=== PATIENT | female | born 1980 | race Caucasian/White ===

== ENCOUNTER 2019-12-12 12:34 | Emergency (ER) | payer MEDICAID, SELFPAY ==
--- NOTE | 2019-12-12 | XR_ITS ---
EXAMINATION: XR CHEST CLINICAL INFORMATION: Shortness of breath. COMPARISON: Chest 09/25/2019. TECHNIQUE: Frontal view of the chest was obtained. FINDINGS: No significant abnormality is noted involving the heart, lungs, mediastinum, bony thorax or soft tissues. IMPRESSION: Unremarkable examination.
[2019-12-12 12:54] VITALS: BP 145/67; PULSE 110; RESP 20; TEMP 36.5; O2SAT 95; BMI 36.5
--- NOTE | 2019-12-12 13:03 | ED.ASTHMA ---
HPI - Asthma General Chief Complaint: Asthma Stated Complaint: asthma Time Seen by Provider: 12/12/19 13:01 Related Data Previous Rx's Medication Instructions Recorded albuterol sulfate 1 inh INHALATION QID PRN #18 g 12/12/19 prednisone 20 mg PO BID #10 tab 12/12/19 Allergies Allergy/AdvReac Type Severity Reaction Status Date / Time ibuprofen [From MOTRIN] Allergy Unknown SWELLING Unverified 11/25/19 17:10 tramadol [TRAMADOL] Allergy Unknown SWELLING Unverified 11/25/19 17:10 Review of Systems Review of Systems: Yes all other systems are reviewed and are negative Constitutional: Constitutional: Reports no additional constitutional complaints Eyes: Eyes: Reports no additional eye complaints ENT: Reports system reviewed and no additional complaints, except as documented Cardiovascular: Cardiovascular: Reports no additional cardiovascular complaints Gastrointestinal: Gastrointestinal: Reports no additional gastrointestinal complaints Musculoskeletal: Musculoskeletal: Reports no additional musculoskeletal complaints Neurologic: Reports system reviewed and no additional complaints, except as documented Psychiatric: Psychiatric: Reports no additional psychiatric complaints Allergic/Immunologic: Allergic/Immunologic: Reports no additional allergic/immunologic complaints [facility] Past Medical History Medical History Asthma delivery delivered COPD (chronic obstructive pulmonary disease) Social History Social History Alcohol intake: never Smoked in Last 30 Days: No Use of substances other than those prescribed or required for medical reasons: No Advance Directives: No Advance Directives Information Provided: No Physical Exam Vital Signs and I&O and Narrative: Vital Signs and I&O: Vital Signs Temp 97.7 F 12/12/19 12:54 Pulse 110 H 12/12/19 12:54 Resp 20 12/12/19 12:54 BP 145/67 H 12/12/19 12:54 Pulse Ox 95 12/12/19 12:54 Intake & Output 12/11/19 12/12/19 12/12/19 18:59 06:59 18:59 Weight 108.862 kg Body Mass Index 36.5 Const: General: cooperative, healthy appearing and comfortable Orientation/consciousness: oriented to person, oriented to place and oriented to time HENMT: Head: Yes normal to inspection Eyes: General: appearance normal, both eyes and all related structures Neck: Neck: Yes normal visual inspection and Yes no JVD Chest: Chest palpation & inspection: normal inspection of the chest Resp: Effort & Inspection: able to speak in complete sentences Auscultation: abnormal I/E ratio ( slightly prolonged expiratory effort with mild expiratory wheezing.) Cardio: Jugular venous distension: no JVD Rate: tachycardic GI: Inspection: Yes normal to inspection and Yes abdominal wall ecchymosis Neuro: General: oriented to person, oriented to place and oriented to time Cranial nerves: Yes CN's II-XII intact bilaterally Cognition (Neuro): normal cognition Motor exam (neuro): 5/5 motor strength present throughout and Pronator motor function not present Course Course Hospital Course: 39-year-old female with history of asthma, former smoker, presented with full days of wheezing and asthma exacerbation, patient was given albuterol in the emergency room and the prednisone patient feels better. As discussed with the patient we will discharge the patient on prednisone/albuterol. No need for antibiotic patient has a clear x-ray. MDM - Asthma MDM Narrative Medical decision making narrative: 39-year-old female presented with dyspnea, patient has no risk factor for DVT (no recent travel, no recent prolonged immobilization, no lower extremity swelling or pain, no history of PE or DVT). Exam is diagnostic for wheezing and asthma exacerbation. Patient is feels better after was given albuterol and prednisone. Differential Diagnosis Differential diagnosis: Likely Acute exacerbation Medical Records Attestation: I reviewed the patient's medical records. Imaging Data Chest x-ray: Radiologist's impression: No significant abnormality is noted involving the heart, lungs, mediastinum, bony thorax or soft tissues. Discharge Plan Discharge Clinical Impression: Asthma with acute exacerbation Patient Disposition: Home, Self-Care Instructions: How to Use a Nebulizer (ED), Bronchospasm (ED) Prescriptions: New albuterol sulfate 90 mcg/actuation HFA aerosol inhaler 1 inh inhalation QID PRN (Reason: shortness of breath or wheezing) Qty: 18 RF: 0 prednisone 20 mg tablet 20 mg PO BID Qty: 10 RF: 0
[2019-12-12] MEDS: Albuterol/Iprat 2.5/0.5MG 3 ML AMPUL.NEB INHALE (13:14)
[2019-12-12] MEDS: predniSONE 20 MG TABLET 60 MG PO (13:36)
== END 2019-12-12 15:36 | disposition home or self-care (01) ==
PROVIDERS: Emergency Provider Emergency Medicine; PCP Family Medicine
DX: J45.901 Unspecified asthma with (acute) exacerbation (principal); Z79.899 Other long term (current) drug therapy
CPT/HCPCS: 71045; 99284

== ENCOUNTER 2019-12-28 21:43 | Emergency (ER) | payer MEDICAID, SELFPAY ==
[2019-12-28 21:48] VITALS: BP 150/71; PULSE 120; RESP 22; TEMP 37.4; O2SAT 93; BMI 36.5
--- NOTE | 2019-12-28 23:51 | ED.ASTHMA ---
HPI - Asthma General Chief Complaint: Dyspnea Stated Complaint: ASTHMA Time Seen by Provider: 12/28/19 23:45 Source: patient Mode of arrival: ambulatory Limitations: no limitations History of Present Illness HPI Narrative: This is a 39-year-old female with history of asthma and states that she ran out of medication and over the past couple of days has developed worsening shortness of breath with wheezing. However, she denies any fever, chills, sore throat, cough, recent travel, GI symptoms, or symptoms. Related Data Previous Rx's Medication Instructions Recorded albuterol sulfate 1 inh INHALATION QID PRN #18 g 12/12/19 prednisone 20 mg PO BID #10 tab 12/12/19 albuterol sulfate [Ventolin HFA] 2 puff INHALATION Q6H PRN #1 ea 12/29/19 prednisone 50 mg PO DAILY 4 Days #4 tab 12/29/19 Allergies Allergy/AdvReac Type Severity Reaction Status Date / Time ibuprofen [From MOTRIN] Allergy Unknown SWELLING Verified 12/28/19 21:47 tramadol [TRAMADOL] Allergy Unknown SWELLING Verified 12/29/19 00:20 Review of Systems Review of Systems: Pertinent positives and negatives as stated in HPI 10 point review of systems is Otherwise negative PMFSH Past Medical History Source: nursing notes reviewed Medical History Asthma delivery delivered COPD (chronic obstructive pulmonary disease) Social History Social History Alcohol intake: never Smoking Status: Never smoker Use of substances other than those prescribed or required for medical reasons: No Advance Directives: No Advance Directives Information Provided: No Physical Exam Vital Signs: Vital Signs: Vital Signs Temp Pulse Resp BP Pulse Ox 12/29/19 01:25 101 H 22 H 109/64 95 12/29/19 00:00 103 H 18 120/89 94 12/28/19 21:48 99.4 F 120 H 22 H 150/71 H 93 Body Mass Index 36.5 VITAL SIGNS: Reviewed. GENERAL: Well developed, well nourished, in no acute distress. HEAD: Normocephalic/atraumatic, EYES: PERRLA, EOMI intact without pain, no nystagmus/pallor/icterus noted EARS: Ext canals without abnormality, TMs non-bulging and non-erythematous NOSE: Nares patent bilateral OROPHARYNX: no oral lesions noted, posterior pharynx clear and non-erythematous without noted tonsillar enlargement/erythema/exudates NECK: Supple, no adenopathy LUNGS: diffuse expiratory wheezing bilaterally No adventitious sounds or accessory muscle use. SpO2<93> CARDIOVASCULAR: Regular rate and rhythm without noted murmurs, no JVD or lower extremity edema. ABDOMEN: Soft, non-tender, non-distended with bowel sounds. No rigidity. No guarding. No palpable masses or hernias noted MUSCULOSKELETAL: No tenderness, deformities, or effusions noted on gross inspection. EXTREMITIES: No cyanosis, clubbing or edema. SKIN: Inspection of the skin reveals no rashes, ulcerations, jaundice, pallor, or petechiae. NEUROLOGIC: Alert and oriented x 4. Strength and sensation to light touch were grossly intact x 4. Course Course Course Narrative: This is a 39-year-old female with history and clinical presentation consistent with acute asthma exacerbation due to running out of medication. Patient was treated with nebulized treatment as well as steroids with good resolution and improvement symptoms subjectively and on clinical evaluation. On review of all investigations although there is a mild leukocytosis this is after patient received steroids and felt to be secondary to that when taken together with a chest x-ray that is otherwise negative for any acute findings. All results and findings were discussed with the patient at bedside and she was strongly encouraged to follow-up with her primary care provider to get restarted on Advair or some other form of maintenance inhaled steroids. MDM - Asthma Lab Data Result diagrams: 12/29/19 00:48 12/29/19 00:48 Labs: Lab Results 12/29/19 12/29/19 12/29/19 Range/Units 00:48 00:48 00:48 WBC 11.8 H (4.8-10.8) X10*3/uL RBC 3.87 L (4.20-5.50) X10*6/uL Hgb 11.1 L (12.0-16.0) g/dl Hct 34.6 L (37-47) % MCV 89.4 (80-98) fL MCH 28.7 (27.0-33.0) pg MCHC 32.1 (31.0-35.0) g/dl RDW 13.4 (11.0-16.0) % Plt Count 216 (160-400) X10*3/uL MPV 11.3 (9.4-12.3) fL Immature Gran % (Auto) 0.3 (0.0-0.4) % Neut % (Auto) 72.5 (45-73) % Lymph % (Auto) 18.4 L (20-40) % [place] % (Auto) 5.7 (2-11) % Eos % (Auto) 2.8 (0-4) % Baso % (Auto) 0.3 (0-2) % Lymph # (Auto) 2.2 (1.2-4.9) X10*3/uL [place] # (Auto) 0.7 (0.1-1.2) X10*3/uL Eos # (Auto) 0.3 (0.0-0.4) X10*3/uL Baso # (Auto) 0.0 (0.0-0.2) X10*3/uL Abs Immat Gran (auto) 0.04 H (0.00-0.03) X10*3/uL Absolute Neuts (auto) 8.5 H (2.0-8.3) X10*3/uL Absolute Nucleated RBC 0.000 (0.0-0.012) X10*3/uL Nucleated RBC % (auto) 0.0 (0.0-0.2) /100WBC Sodium 140 (135-145) mmol/L Potassium 3.8 (3.3-5.1) mmol/l Chloride 104 (96-108) mmol/L Carbon Dioxide 26 (22-29) mmol/L Anion Gap 14 (12-20) BUN 13 (9-16) mg/dL Creatinine 0.77 (0.5-1.4) mg/dL Estim Creat Clear Calc 126.7 Estimated GFR > 60 Random Glucose 116 H (60-115) mg/dL Calcium 9.0 (8.4-10.2) mg/dL Magnesium 2.1 (1.6-2.6) mg/dL Discharge Plan Discharge Clinical Impression: Asthma with exacerbation Qualifiers: Asthma severity: mild Asthma persistence: unspecified Qualified Code(s): J45.901 - Unspecified asthma with (acute) exacerbation Patient Disposition: Home, Self-Care Instructions: Asthma (ED) Additional Instructions: 1. please contact your primary care provider to discuss getting restarted on maintenance steroid inhaler The patient and/or family acknowledge understanding of results (as applicable), diagnosis, treatment plan, need for follow up, and symptoms that should prompt a return to the emergency room. Prescriptions: New albuterol sulfate [Ventolin HFA] 90 mcg/actuation HFA aerosol inhaler 2 puff inhalation Q6H PRN (Reason: shortness of breath or wheezing) Qty: 1 RF: 0 prednisone 50 mg tablet 50 mg PO DAILY 4 Days Qty: 4 RF: 0 No Action albuterol sulfate 90 mcg/actuation HFA aerosol inhaler 1 inh inhalation QID PRN (Reason: shortness of breath or wheezing) Qty: 18 RF: 0 prednisone 20 mg tablet 20 mg PO BID Qty: 10 RF: 0 Referrals: Po,Sara Cifuentes MD [Primary Care Provider] - 2 days ( for further asthma management, may consider maintenance steroid inhaler)
[2019-12-29] VITALS: BP 120/89; PULSE 103; RESP 18; O2SAT 94
--- NOTE | 2019-12-29 00:10 | XR_ITS ---
EXAMINATION: CHEST 1 VIEW CLINICAL INFORMATION: Dyspnea. COMPARISON: 12/12/2019. TECHNIQUE: An AP view of the chest is provided. FINDINGS: The cardiac silhouette is not enlarged. The mediastinal and hilar contours are unremarkable. There are neither pleural effusions nor pneumothoraces. There are no consolidations. The osseous structures are stable. IMPRESSION: No evidence for acute disease.
[2019-12-29] MEDS: Albuterol Sulfate (0.083%) 2.5 MG/3 ML VIAL.NEB 10 MG INHALE (00:24)
[2019-12-29] MEDS: methylPREDNISolone Sod Succ/PF 125 MG/2 ML VIAL IVPUSH (00:47)
[2019-12-29 00:54] LABS: MANUAL DIFF FLAG NO
[2019-12-29 00:57] LABS: Basophils Percent Auto 0.3 % (0-2); Eosinophils Absolute Auto 0.3 X10*3/uL (0.0-0.4); Eosinophils Percent Auto 2.8 % (0-4); Hematocrit 34.6 % (37-47); Hemoglobin 11.1 g/dl (12.0-16.0); Imm Gran Abs Auto 0.04 X10*3/uL (0.00-0.03); Imm Gran Pct Auto 0.3 % (0.0-0.4); Lymphocytes Absolute Auto 2.2 X10*3/uL (1.2-4.9); Lymphocytes Percent Auto 18.4 % (20-40); Mean Corpuscular HGB Conc 32.1 g/dl (31.0-35.0); Mean Corpuscular Hemoglobin 28.7 pg (27.0-33.0); Mean Corpuscular Volume 89.4 fL (80-98); Mean Platelet Volume 11.3 fL (9.4-12.3); Monocytes Absolute Auto 0.7 X10*3/uL (0.1-1.2); Monocytes Percent Auto 5.7 % (2-11); Neutrophils Absolute Auto 8.5 X10*3/uL (2.0-8.3); Neutrophils Percent Auto 72.5 % (45-73); Platelet Count 216 X10*3/uL (160-400); Red Blood Count 3.87 X10*6/uL (4.20-5.50); Red Cell Distribution Width 13.4 % (11.0-16.0); White Blood Count 11.8 X10*3/uL (4.8-10.8)
[2019-12-29 01:18] LABS: Anion Gap 14 (12-20); Blood Urea Nitrogen 13 mg/dL (9-16); Carbon Dioxide 26 mmol/L (22-29); Chloride 104 mmol/L (96-108); Creatinine Clr Calc Pharmacy 126.7; Estimated Glomerular Filt Rate > 60; Glucose Random 116 mg/dL (60-115); Potassium 3.8 mmol/l (3.3-5.1); Sodium 140 mmol/L (135-145)
[2019-12-29 01:19] LABS: Magnesium 2.1 mg/dL (1.6-2.6)
[2019-12-29 01:25] VITALS: BP 109/64; PULSE 101; RESP 22; O2SAT 95
[2019-12-29 02:29] VITALS: BP 123/60; PULSE 100; RESP 19; TEMP 36.8; O2SAT 96
== END 2019-12-29 02:36 | disposition home or self-care (01) ==
PROVIDERS: Emergency Provider Student in an Organized Health Care Education/Training Program; PCP Internal Medicine
DX: J45.901 Unspecified asthma with (acute) exacerbation (principal)
CPT/HCPCS: 36415; 71045; 80048; 83735; 85025; 96374; 99284; J2930

== ENCOUNTER 2020-01-30 13:26 | Emergency (ER) | payer MEDICAID, SELFPAY ==
[2020-01-30 14:14] VITALS: BP 130/75; PULSE 111; RESP 22; TEMP 35.8; O2SAT 95; BMI 36.5
--- NOTE | 2020-01-30 14:26 | ED_ITS ---
HPI - Asthma General Chief Complaint: Asthma Stated Complaint: sob,cough Time Seen by Provider: 01/30/20 14:20 Source: patient Mode of arrival: ambulatory Limitations: no limitations History of Present Illness HPI Narrative: 39-year-old female with a past medical history of asthma here with cough and wheezing since yesterday. The patient tells me she was seen here 1 month ago for asthma exacerbation she was given a 5 day course of prednisone. She completed this. She has been intermittently compliant with Advair. Using ProAir every day. no fevers, chills, body aches MD complaint: shortness of breath Onset (ago): day(s) Severity: mild Context: none known Associated symptoms: none Asthma History: childhood onset Treatments Prior to Arrival: inhaled bronchodilator Related Data Previous Rx's Medication Instructions Recorded albuterol sulfate 1 inh INHALATION QID PRN #18 g 12/12/19 prednisone 20 mg PO BID #10 tab 12/12/19 albuterol sulfate [Ventolin HFA] 2 puff INHALATION Q6H PRN #1 ea 12/29/19 prednisone 50 mg PO DAILY 4 Days #4 tab 12/29/19 prednisone 60 mg PO DAILY #15 tab 01/30/20 Allergies Allergy/AdvReac Type Severity Reaction Status Date / Time ibuprofen [From MOTRIN] Allergy Unknown SWELLING Verified 01/30/20 14:16 tramadol [TRAMADOL] Allergy Unknown SWELLING Verified 01/30/20 14:16 Review of Systems Review of Systems: Yes all other systems are reviewed and are negative Constitutional: Constitutional: Reports no additional constitutional complaints, Denies body ache(s), Denies chills, Denies fever(s), Denies headache(s) and Denies weakness Eyes: Eyes: Reports no additional eye complaints and Denies change in vision ENT: Reports system reviewed and no additional complaints, except as documented, Denies dizziness, Denies headache(s), Denies nasal congestion, Denies nasal discharge and Denies neck pain Cardiovascular: Cardiovascular: Reports no additional cardiovascular complaints, Denies chest pain, Denies leg edema and Denies dyspnea Respiratory: Respiratory: Reports no additional respiratory complaints, Reports cough and Denies dyspnea Gastrointestinal: Gastrointestinal: Reports no additional gastrointestinal complaints, Denies abdominal pain, Denies diarrhea, Denies nausea and Denies vomiting Genitourinary: Genitourinary: Reports no additional female genitourinary complaints and Denies urinary incontinence Musculoskeletal: Musculoskeletal: Reports no additional musculoskeletal compla ints, Denies back pain, Denies arthralgias, Denies joint swelling, Denies neck pain, Denies numbness and Denies tingling Integumentary/Breasts: Skin/Breast: Reports system reviewed and no additional complaints, except as docu and Denies rash Neurologic: Reports system reviewed and no additional complaints, except as documented, Denies Abnormal speech present, Denies dizziness, Denies headache(s), Denies numbness, Denies tingling and Denies weakness PENDING SALE TO [facility] Past Medical History Attestation statement: The following information was validated with the patient. Source: old records reviewed and nursing notes reviewed Medical History Asthma delivery delivered COPD (chronic obstructive pulmonary disease) Social History Social History Alcohol intake: never Smoking Status: Never smoker Smoked in Last 30 Days: No Use of substances other than those prescribed or required for medical reasons: No Advance Directives: No Advance Directives Information Provided: Yes Physical Exam Vital Signs: Vital Signs: Last Vital Signs Temp 98.4 F 01/30/20 16:59 Pulse 102 H 01/30/20 16:59 Resp 15 01/30/20 16:59 BP 121/76 01/30/20 16:59 Pulse Ox 100 01/30/20 16:59 Body Mass Index 36.5 Const: General: cooperative, healthy appearing, comfortable and no acute distress Orientation/consciousness: patient oriented x3 Limitations: no limitations HENMT: Head: Yes normal to inspection Ears: hearing grossly normal bilaterally General nose exam: Normal external nose present Face and sinus: Yes normal facial exam Mouth: Normal oral and palatal mucosa present Throat: Yes posterior oropharynx normal Eyes: General: appearance normal, both eyes and all related structures Pupils: Equal, round and reactive pupils present Neck: Neck: Yes normal visual inspection Chest: Chest palpation & inspection: normal inspection of the chest Resp: Effort & Inspection: normal respiratory effort Auscultation: wheezes expiratory wheezes and inspiratory wheezes Cardio: Rate: regular rate Rhythm: regular rhythm Peripheral pulses: Peripheral pulses 2+ throughout GI: Inspection: Yes normal to inspection Palpation (GI): Soft to palpation and nontender Auscultation: normal bowel sounds Back/Spine/Pelvis: Thoracic/Lumbar Spine: thoracic and lumbar spine normal to inspection Skin: General skin exam: no rashes or lesions noted Neuro: General: patient oriented x3, no focal motor deficits and normal sensation to monofilament Cranial nerves: Yes Equal, round and reactive pupils present Cognition (Neuro): normal cognition Speech: No Abnormal speech present Gait exam (Neuro): Normal gait present Motor exam (neuro): 5/5 motor strength present throughout Extrem: General: Yes normal to inspection Course Course Course Narrative: 39-year-old female with a past medical history of asthma here with cough and wheezing since yesterday. On arrival has inspiratory and expiratory wheezing throughout. She has stable saturations and is mildly tachycardic but used several rounds of albuterol home before coming in. Will check labs, chest x-ray to rule out underlying infection. Will give bronchodi lator, Solu-Medrol and magnesium and reassess. 1700- Chest x-ray negative. Labs unremarkable with exception of mild leukocytosis which is unchanged from previous and likely from steroid use. Heart rate and oxygen saturation a much improved. Patient is feeling better. Will plan for ambulatory O2 sat would likely discharge home. Sign out to Rohan MONZON pending above. MDM - Asthma MDM Narrative Medical decision making narrative: viral syndrome, asthma exacerbation, pneumonia Medical Records Attestation: I reviewed the patient's medical records. Lab Data Attestation: I reviewed the patient's lab results. Result diagrams: 01/30/20 14:41 01/30/20 14:41 Labs: Lab Results 01/30/20 01/30/20 01/30/20 Range/Units 14:41 14:41 14:41 WBC 12.1 H (4.8-10.8) X10*3/uL RBC 4.08 L (4.20-5.50) X10*6/uL Hgb 11.9 L (12.0-16.0) g/dl Hct 36.4 L (37-47) % MCV 89.2 (80-98) fL MCH 29.2 (27.0-33.0) pg MCHC 32.7 (31.0-35.0) g/dl RDW 14.0 (11.0-16.0) % Plt Count 203 (160-400) X10*3/uL MPV 10.6 (9.4-12.3) fL Immature Gran % (Auto) 0.5 H (0.0-0.4) % Neut % (Auto) 76.6 H (45-73) % Lymph % (Auto) 17.1 L (20-40) % [place] % (Auto) 3.9 (2-11) % Eos % (Auto) 1.7 (0-4) % Baso % (Auto) 0.2 (0-2) % Lymph # (Auto) 2.1 (1.2-4.9) X10*3/uL [place] # (Auto) 0.5 (0.1-1.2) X10*3/uL Eos # (Auto) 0.2 (0.0-0.4) X10*3/uL Baso # (Auto) 0.0 (0.0-0.2) X10*3/uL Abs Immat Gran (auto) 0.06 H (0.00-0.03) X10*3/uL Absolute Neuts (auto) 9.3 H (2.0-8.3) X10*3/uL Absolute Nucleated RBC 0.000 (0.0-0.012) X10*3/uL Nucleated RBC % (auto) 0.0 (0.0-0.2) /100WBC Hold Blue Top SEE NOTE Sodium 138 (135-145) mmol/L Potassium 3.7 (3.3-5.1) mmol/l Chloride 101 (96-108) mmol/L Carbon Dioxide 26 (22-29) mmol/L Anion Gap 15 (12-20) BUN 11 (9-16) mg/dL Creatinine 0.68 (0.5-1.4) mg/dL Estim Creat Clear Calc 143.6 Estimated GFR > 60 Random Glucose 105 (60-115) mg/dL Calcium 8.5 (8.4-10.2) mg/dL Imaging Data Chest x-ray: Attestation: I personally reviewed and interpreted this imaging study as follows: Radiologist's impression: EXAMINATION: XR CHEST CLINICAL INFORMATION: Shortness of breath. COMPARISON: Chest radiograph dated 12/29/2019. TECHNIQUE: 2 views of the chest were obtained. FINDINGS: The lungs are clear. The cardiomediastinal silhouette is normal in size. There is no pleural effusion or pneumothorax. No acute osseous abnormality. XR/XR chest 2V IMPRESSION: No acute cardiopulmonary findings. Discharge Plan Discharge Clinical Impression: Asthma with acute exacerbation Patient Disposition: Home, Self-Care Instructions: Asthma (ED) Additional Instructions: Start prednisone tomorrow Use her albuterol as needed for cough or wheezing Increase fluids, rest Follow-up with her primary care doctor. Prescriptions: New prednisone 20 mg tablet 60 mg PO DAILY Qty: 15 RF: 0 No Action albuterol sulfate 90 mcg/actuation HFA aerosol inhaler 1 inh inhalation QID PRN (Reason: shortness of breath or wheezing) Qty: 18 RF: 0 prednisone 20 mg tablet 20 mg PO BID Qty: 10 RF: 0 albuterol sulfate [Ventolin HFA] 90 mcg/actuation HFA aerosol inhaler 2 puff inhalation Q6H PRN (Reason: shortness of breath or wheezing) Qty: 1 RF: 0 prednisone 50 mg tablet 50 mg PO DAILY 4 Days Qty: 4 RF: 0 Referrals: Physician,Unknown [Primary Care Provider] - 2 days
[2020-01-30 14:33] VITALS: PULSE 113; O2SAT 94
[2020-01-30] MEDS: Albuterol Sulfate (0.083%) 2.5 MG/3 ML VIAL.NEB 10 MG INHALE (14:33)
[2020-01-30 14:49] LABS: Basophils Percent Auto 0.2 % (0-2); Eosinophils Absolute Auto 0.2 X10*3/uL (0.0-0.4); Eosinophils Percent Auto 1.7 % (0-4); Hematocrit 36.4 % (37-47); Hemoglobin 11.9 g/dl (12.0-16.0); Imm Gran Abs Auto 0.06 X10*3/uL (0.00-0.03); Imm Gran Pct Auto 0.5 % (0.0-0.4); Lymphocytes Absolute Auto 2.1 X10*3/uL (1.2-4.9); Lymphocytes Percent Auto 17.1 % (20-40); MANUAL DIFF FLAG NO; Mean Corpuscular HGB Conc 32.7 g/dl (31.0-35.0); Mean Corpuscular Hemoglobin 29.2 pg (27.0-33.0); Mean Corpuscular Volume 89.2 fL (80-98); Mean Platelet Volume 10.6 fL (9.4-12.3); Monocytes Absolute Auto 0.5 X10*3/uL (0.1-1.2); Monocytes Percent Auto 3.9 % (2-11); Neutrophils Absolute Auto 9.3 X10*3/uL (2.0-8.3); Neutrophils Percent Auto 76.6 % (45-73); Platelet Count 203 X10*3/uL (160-400); Red Blood Count 4.08 X10*6/uL (4.20-5.50); White Blood Count 12.1 X10*3/uL (4.8-10.8)
[2020-01-30 15:32] LABS: Anion Gap 15 (12-20); Blood Urea Nitrogen 11 mg/dL (9-16); Calcium 8.5 mg/dL (8.4-10.2); Carbon Dioxide 26 mmol/L (22-29); Chloride 101 mmol/L (96-108); Creatinine Clr Calc Pharmacy 143.6; Estimated Glomerular Filt Rate > 60; Glucose Random 105 mg/dL (60-115); Potassium 3.7 mmol/l (3.3-5.1); Sodium 138 mmol/L (135-145)
[2020-01-30] MEDS: methylPREDNISolone Sod Succ/PF 125 MG/2 ML VIAL IVPUSH (16:25)
[2020-01-30] MEDS: 0.9 % Sodium Chloride 1,000 ML 999 ML IV (16:31)
[2020-01-30 16:32] VITALS: BP 121/71; PULSE 106; RESP 20; TEMP 36.8; O2SAT 100
[2020-01-30] MEDS: Magnesium Sulfate/H2O 2 GM/50 ML PIGGYBACK IV (16:32)
[2020-01-30 16:59] VITALS: BP 121/76; PULSE 102; RESP 15; TEMP 36.9; O2SAT 100
[2020-01-30] MEDS: Albuterol Sulfate 90 MCG 8 GM INHALER 2 PUFF INHALE (17:46)
[2020-01-30 17:48] VITALS: PULSE 103; O2SAT 99
[2020-01-30 19:52] VITALS: BP 139/74; PULSE 102; RESP 16; TEMP 36.9; O2SAT 99
== END 2020-01-30 19:58 | disposition home or self-care (01) ==
PROVIDERS: Nurse Practitioner Family; Emergency Provider Emergency Medicine
DX: J45.901 Unspecified asthma with (acute) exacerbation (principal); R06.02 Shortness of breath; R05 Cough; Z79.899 Other long term (current) drug therapy
CPT/HCPCS: 36415; 71046; 80048; 85025; 94640; 94644; 94645; 96365; 96366; 96375; 99284; J2930; J3475

== ENCOUNTER 2020-04-01 15:15 | Emergency (ER) | payer MEDICAID, SELFPAY ==
[2020-04-01 15:38] VITALS: BP 142/87; PULSE 113; RESP 18; TEMP 36.6; O2SAT 95; BMI 35.4
--- NOTE | 2020-04-01 16:34 | ED.ASTHMA ---
HPI - Asthma General Chief Complaint: Asthma Stated Complaint: asthma Time Seen by Provider: 04/01/20 16:20 Source: patient Mode of arrival: ambulatory Limitations: no limitations History of Present Illness HPI Narrative: 39-year-old female who presents emergency department for evaluation of asthma exacerbation. Patient states that she had an asthma flare up this morning, she states that she does not know what triggered her asthma but she often gets flare ups. She states that her last flare-up was 1 month prior and she was seen here in the emergency department and treated with nebulizers and steroids. The patient states that she did use her albuterol nebulizer, ProAir inhaler and Advair today with no relief for symptoms. She currently is complaining of shortness of breath and dyspnea on exertion. She has tightness in the center of her chest which is worse with breathing, is intermittent and is 8/10 at its worst. She denied fever, chills. She states she has a cough which is nonproductive in the started this morning as well. She denied myalgias, arthralgias, loss of sense of taste or smell, diarrhea. She is not aware of any primary COVID-19 exposures. Related Data Previous Rx's Medication Instructions Recorded albuterol sulfate 1 inh INHALATION QID PRN #18 g 12/12/19 prednisone 20 mg PO BID #10 tab 12/12/19 albuterol sulfate [Ventolin HFA] 2 puff INHALATION Q6H PRN #1 ea 12/29/19 prednisone 50 mg PO DAILY 4 Days #4 tab 12/29/19 prednisone 60 mg PO DAILY #15 tab 01/30/20 albuterol sulfate 2.5 mg INHALATION Q4H PRN #90 ml 04/01/20 albuterol sulfate [ProAir HFA] 2 puff INHALATION Q4-6H PRN #8.5 g 04/01/20 fluticasone propion-salmeterol 1 inh INHALATION Q12H #60 ea 04/01/20 [Advair Diskus] prednisone 60 mg PO DAILY 5 Days #15 tab 04/01/20 Allergies Allergy/AdvReac Type Severity Reaction Status Date / Time ibuprofen [From MOTRIN] Allergy Unknown SWELLING Verified 04/01/20 15:38 tramadol [TRAMADOL] Allergy Unknown SWELLING Verified 04/01/20 15:38 Review of Systems Review of Systems: Yes all other systems are reviewed and are negative Neurologic: Reports Abnormal speech present [facility] Past Medical History [facility] Narrative: The patient denies tobacco and alcohol use. She denies drug use as well. Medical History Asthma delivery delivered COPD (chronic obstructive pulmonary disease) Social History Social History Alcohol intake: never Smoking Status: Never smoker Smoked in Last 30 Days: No Use of substances other than those prescribed or required for medical reasons: No Advance Directives: No Advance Directives Information Provided: Yes Physical Exam Vital Signs: Vital Signs: Last Vital Signs Temp 97.8 F 04/01/20 15:38 Pulse 103 H 04/01/20 17:02 Resp 16 04/01/20 17:01 BP 119/70 04/01/20 17:01 Pulse Ox 99 04/01/20 17:01 Body Mass Index 35.4 Const: General: cooperative and healthy appearing Orientation/consciousness: oriented to person and oriented to place Limitations: no limitations HENMT: Head: Yes normal to inspection, Yes normocephalic and Yes atraumatic Ears: external ears normal General nose exam: Normal external nose present Face and sinus: Yes normal facial exam Mouth: Normal oral and palatal mucosa present Throat: Yes posterior oropharynx normal Eyes: Periorbital: periorbital findings normal Eyelids: Yes eyelids normal Conjunctivae: conjunctivae normal Sclerae: sclerae normal Corneas: corneas normal Pupils: Equal, round and reactive pupils present Direct Ophthalmoscopy: normal light reflex Neck: Neck: Yes full ROM, Yes no lymphadenopathy, Yes no meningeal signs, Yes trachea midline and Yes supple Chest: Chest palpation & inspection: normal inspection of the chest and normal palpation of entire chest wall Resp: Effort & Inspection: normal respiratory effort and able to speak in complete sentences Auscultation: no crackles, no rales, no rhonchi and wheezes scattered wheezes and throughout Cardio: Rate: tachycardic Rhythm: regular rhythm Heart sounds: S1 normal heart sound present, S2 normal heart sound present and no murmurs GI: Inspection: Yes normal to inspection Palpation (GI): Soft to palpation, nontender, no guarding, not rigid and No hepatosplenomegaly present : General: Yes no CVA tenderness Back/Spine/Pelvis: Back: no CVA tenderness Cervical Spine: normal cervical lordosis Thoracic/Lumbar Spine: thoracic and lumbar spine normal to inspection Skin: Lesions: no lesions Rashes: no rashes Wounds: no wounds Neuro: General: oriented to person, oriented to place and no meningeal signs Cranial nerves: Yes Equal, round and reactive pupils present Cognition (Neuro): normal cognition Speech: Abnormal speech present Motor exam (neuro): 5/5 motor strength present throughout Extrem: General: Yes normal to inspection and Yes full ROM Psych: Appearance: well kempt Mental Status: mental status grossly normal Speech and movement: Normal speech and movement present Affect: normal affect Attitude: cooperative Thought process: Normal thought process present Thought content: Normal thought content present Course Course Course Narrative: 39-year-old female who presents emergency department for evaluation asthma exacerbation since this morning. She has used her usual medications at home with no relief of her symptoms. On physical examination she has diffuse wheezing. The patient was ordered to get an hour long albuterol nebulizer 10 mg and prednisone 60 mg orally. 1804: The patient's lung exam improved after the above treatment, the patient is feeling significantly better. The patient will be discharged home. She was given a prescription for ProAir, Advair, albuterol nebulizer solution and prednisone 60 mg once a day for 5 days. She is advised to follow-up with her PCP within 2 days and return if her symptoms get worse or she develops any new symptoms that are concerning to her. Discharge Plan Discharge Clinical Impression: Asthma with acute exacerbation Qualifiers: Asthma severity: moderate Asthma persistence: unspecified Qualified Code(s): J45.901 - Unspecified asthma with (acute) exacerbation Patient Disposition: Home, Self-Care Instructions: Asthma (ED) Additional Instructions: Use your albuterol inhaler, Advair, albuterol nebulizer solution and prednisone as prescribed. Follow-up with your doctor in 2 days. Please return to the emergency department if your symptoms get worse or if you develop any symptoms that are concerning to you. Prescriptions: New prednisone 20 mg tablet 60 mg PO DAILY 5 Days Qty: 15 RF: 0 albuterol sulfate [ProAir HFA] 90 mcg/actuation HFA aerosol inhaler 2 puff inhalation Q4-6H PRN (Reason: shortness of breath or wheezing) Qty: 8.5 RF: 0 fluticasone propion-salmeterol [Advair Diskus] 250-50 mcg/dose blister with device 1 inh inhalation Q12H Qty: 60 RF: 0 albuterol sulfate 2.5 mg /3 mL (0.083 %) solution for nebulization 2.5 mg inhalation Q4H PRN (Reason: shortness of breath or wheezing) Qty: 90 RF: 0 No Action prednisone 20 mg tablet 60 mg PO DAILY Qty: 15 RF: 0 albuterol sulfate 90 mcg/actuation HFA aerosol inhaler 1 inh inhalation QID PRN (Reason: shortness of breath or wheezing) Qty: 18 RF: 0 prednisone 20 mg tablet 20 mg PO BID Qty: 10 RF: 0 albuterol sulfate [Ventolin HFA] 90 mcg/actuation HFA aerosol inhaler 2 puff inhalation Q6H PRN (Reason: shortness of breath or wheezing) Qty: 1 RF: 0 prednisone 50 mg tablet 50 mg PO DAILY 4 Days Qty: 4 RF: 0
[2020-04-01] MEDS: Albuterol Sulfate (0.083%) 2.5 MG/3 ML VIAL.NEB 10 MG INHALE (16:57)
[2020-04-01] MEDS: predniSONE 20 MG TABLET 60 MG PO (16:59)
[2020-04-01 17:01] VITALS: BP 119/70; PULSE 99; RESP 16; O2SAT 99
[2020-04-01 17:02] VITALS: PULSE 103; O2SAT 98
== END 2020-04-01 18:28 | disposition home or self-care (01) ==
PROVIDERS: Emergency Provider Emergency Medicine Emergency Medical Services; PCP Family Medicine
DX: J45.901 Unspecified asthma with (acute) exacerbation (principal); Z79.899 Other long term (current) drug therapy
CPT/HCPCS: 94640; 94644; 99284

== ENCOUNTER 2020-04-12 08:38 | Emergency (ER) | payer MEDICAID, SELFPAY ==
--- NOTE | 2020-04-12 09:30 | ED.SOB ---
HPI - SOB/Dyspnea General Chief Complaint: Asthma Stated Complaint: asthma Time Seen by Provider: 04/12/20 09:30 Source: patient Mode of arrival: ambulatory Limitations: no limitations History of Present Illness HPI Narrative: shortness of breath started yesterday. Was on steroids over a month ago. Patient states she has no exposure to KRISTIN MD elicited complaint: shortness of breath Pertinent past history: asthma Onset (ago): week(s) Timing: intermittent Severity: mild Exacerbating factors: exertion Relieving factors: bronchodilators Known history of: asthma Associated symptoms: cough Related Data Previous Rx's Medication Instructions Recorded albuterol sulfate 1 inh INHALATION QID PRN #18 g 12/12/19 prednisone 20 mg PO BID #10 tab 12/12/19 albuterol sulfate [Ventolin HFA] 2 puff INHALATION Q6H PRN #1 ea 12/29/19 prednisone 50 mg PO DAILY 4 Days #4 tab 12/29/19 prednisone 60 mg PO DAILY #15 tab 01/30/20 albuterol sulfate 2.5 mg INHALATION Q4H PRN #90 ml 04/01/20 albuterol sulfate [ProAir HFA] 2 puff INHALATION Q4-6H PRN #8.5 g 04/01/20 fluticasone propion-salmeterol 1 inh INHALATION Q12H #60 ea 04/01/20 [Advair Diskus] prednisone 60 mg PO DAILY 5 Days #15 tab 04/01/20 [id number] 15 ml PO Q4H PRN #118 ml 04/12/20 [Robitussin Cough and Cold CF] prednisone 60 mg PO DAILY #15 tab 04/12/20 Allergies Allergy/AdvReac Type Severity Reaction Status Date / Time ibuprofen [From MOTRIN] Allergy Unknown SWELLING Verified 04/01/20 15:38 tramadol [TRAMADOL] Allergy Unknown SWELLING Verified 04/01/20 15:38 Review of Systems Constitutional: Constitutional: Reports no additional constitutional complaints Eyes: Eyes: Reports no additional eye complaints ENT: Denies dizziness Cardiovascular: Cardiovascular: Reports no additional cardiovascular complaints Respiratory: Respiratory: Reports as per HPI Gastrointestinal: Gastrointestinal: Reports no additional gastrointestinal complaints Genitourinary: Genitourinary: Reports no additional female genitourinary complaints Musculoskeletal: Musculoskeletal: Reports no additional musculoskeletal complaints Integumentary/Breasts: Skin/Breast: Denies rash Neurologic: Reports system reviewed and no additional complaints, except as documented, Denies dizziness and Denies Sensory deficit (Neuro) Psychiatric: Psychiatric: Denies anxiety PMFSH Past Medical History Medical History Asthma delivery delivered COPD (chronic obstructive pulmonary disease) Social History Social History Alcohol intake: never Smoking Status: Former smoker Smoked in Last 30 Days: No Use of substances other than those prescribed or required for medical reasons: No Advance Directives: No Advance Directives Information Provided: No Physical Exam Vital Signs: Vital Signs: Last Vital Signs Temp 98.4 F 04/12/20 10:00 Pulse 88 04/12/20 10:00 Resp 16 04/12/20 10:00 BP 139/88 04/12/20 10:00 Pulse Ox 95 04/12/20 10:00 Body Mass Index 36.5 Const: General: healthy appearing Nutritional Appearance: average body habitus Orientation/consciousness: oriented to person and patient oriented x3 Limitations: no limitations HENMT: Head: Yes normal to inspection Ears: external ears normal General nose exam: Normal external nose present Mouth: Normal oral and palatal mucosa present and oropharynx normal Throat: Yes posterior oropharynx normal Eyes: General: appearance normal, both eyes and all related structures Neck: Other: supple Neck: Yes normal visual inspection Chest: Chest palpation & inspection: normal inspection of the chest Resp: Other: diffuse wheezing Cardio: Jugular venous distension: no JVD Rate: regular rate Rhythm: regular rhythm Heart sounds: S1 normal heart sound present and S2 normal heart sound present GI: Inspection: Yes normal to inspection Palpation (GI): Soft to palpation, nontender and No hepatosplenomegaly present Auscultation: normal bowel sounds : General: Yes no CVA tenderness Back/Spine/Pelvis: Back: no CVA tenderness Skin: General skin exam: no rashes or lesions noted Neuro: General: oriented to person and patient oriented x3 Cranial nerves: Yes CN's II-XII intact bilaterally Motor exam (neuro): 5/5 motor strength present throughout Sensory Exam: No Sensory deficit (Neuro) Extrem: General: Yes normal to inspection Psych: Appearance: grossly normal Course Course Course Narrative: breathing better, covid negative MDM - SOB/Dyspnea Differential Diagnosis Differential diagnosis: Likely acute exacerbation of chronic obstructive airways disease and asthma with exacerbation Lab Data Labs: Lab Results 04/12/20 Range/Units 09:42 COVID-19 ([facility]) Negative (Negative) COVID-19 Clin Com See Note Discharge Plan Discharge Clinical Impression: Chronic obstructive asthma with exacerbation Asthma with acute exacerbation Qualifiers: Asthma severity: moderate Asthma persistence: persistent Qualified Code(s): J45.41 - Moderate persistent asthma with (acute) exacerbation Patient Disposition: Home, Self-Care Instructions: Asthma (ED) Prescriptions: New prednisone 20 mg tablet 60 mg PO DAILY Qty: 15 RF: 0 Robitussin Cough and Cold CF 2.5-5-50 mg/5 mL liquid 15 ml PO Q4H PRN (Reason: cough) Qty: 118 RF: 0 No Action prednisone 20 mg tablet 60 mg PO DAILY Qty: 15 RF: 0 albuterol sulfate 90 mcg/actuation HFA aerosol inhaler 1 inh inhalation QID PRN (Reason: shortness of breath or wheezing) Qty: 18 RF: 0 prednisone 20 mg tablet 20 mg PO BID Qty: 10 RF: 0 albuterol sulfate [Ventolin HFA] 90 mcg/actuation HFA aerosol inhaler 2 puff inhalation Q6H PRN (Reason: shortness of breath or wheezing) Qty: 1 RF: 0 prednisone 50 mg tablet 50 mg PO DAILY 4 Days Qty: 4 RF: 0 prednisone 20 mg tablet 60 mg PO DAILY 5 Days Qty: 15 RF: 0 albuterol sulfate [ProAir HFA] 90 mcg/actuation HFA aerosol inhaler 2 puff inhalation Q4-6H PRN (Reason: shortness of breath or wheezing) Qty: 8.5 RF: 0 fluticasone propion-salmeterol [Advair Diskus] 250-50 mcg/dose blister with device 1 inh inhalation Q12H Qty: 60 RF: 0 albuterol sulfate 2.5 mg /3 mL (0.083 %) solution for nebulization 2.5 mg inhalation Q4H PRN (Reason: shortness of breath or wheezing) Qty: 90 RF: 0 Referrals: Trish Licea MD [Primary Care Provider] - 2 days
[2020-04-12 09:34] VITALS: BP 139/88; PULSE 88; RESP 16; TEMP 36.9; O2SAT 95; BMI 36.5
[2020-04-12] MEDS: Albuterol Sulfate 90 MCG 8 GM INHALER 4 PUFF INHALE (09:45)
[2020-04-12] MEDS: predniSONE 20 MG TABLET 60 MG PO (09:46)
[2020-04-12 09:48] VITALS: BP 139/88; PULSE 88; RESP 16; TEMP 36.9; O2SAT 95
[2020-04-12 10:00] VITALS: BP 139/88; PULSE 88; RESP 16; TEMP 36.9; O2SAT 95
[2020-04-12] MEDS: Ipratropium Bromide 1 PUFF/17 MCG INHALER 4 PUFF INHALE (10:00)
[2020-04-12 10:07] LABS: COVID-19 Test Negative (Negative)
--- NOTE | 2020-04-12 10:49 | PC.NURSE ---
pt reports Shortness of breath has improved. Lung sopunds have improved, she has mild scattered wheezing throughout. Pt awaits discharge.
== END 2020-04-12 10:45 | disposition home or self-care (01) ==
PROVIDERS: Emergency Provider Emergency Medicine; PCP Family Medicine
DX: J44.1 Chronic obstructive pulmonary disease with (acute) exacerbation (principal); J45.41 Moderate persistent asthma with (acute) exacerbation; Z20.822 Contact with and (suspected) exposure to COVID-19; Z87.891 Personal history of nicotine dependence
CPT/HCPCS: 36415; 87635; 99284

== ENCOUNTER 2020-04-25 13:49 | Emergency (ER) | payer MEDICAID, SELFPAY ==
--- NOTE | ~2020-04-25 | XR_ITS ---
EXAMINATION: XR CHEST CLINICAL INFORMATION: Shortness of breath COMPARISON: 01/30/2020 TECHNIQUE: 2 views of the chest were obtained. FINDINGS: Lungs are clear. No focal consolidation or mass. Normal pulmonary vascularity. No pleural effusion or pneumothorax. Normal heart size. No acute osseous abnormality. XR/XR chest 2V IMPRESSION: No acute pulmonary disease.
[2020-04-25 13:56] VITALS: BP 157/92; PULSE 121; RESP 28; TEMP 36.6; O2SAT 94; BMI 36.5
[2020-04-25 18:09] VITALS: BP 150/69; PULSE 105; RESP 20
[2020-04-25] MEDS: predniSONE 20 MG TABLET 60 MG PO (18:09)
[2020-04-25] MEDS: Albuterol/Iprat 2.5/0.5MG 3 ML AMPUL.NEB INHALE ×2 (18:16→19:17)
[2020-04-25 18:18] VITALS: PULSE 97; O2SAT 96
--- NOTE | 2020-04-25 18:32 | PC.NURSE ---
pt states she had a updraft treatment with no changes. she states she wanted a continuous treatment. o2 is 97% and she was medicated with prednisone
--- NOTE | 2020-04-25 18:59 | PC.NURSE ---
respiratory contacted for neb. close door room unavailable. hemodialysis charge nurse aware.
--- NOTE | 2020-04-25 19:01 | ED.ASTHMA ---
HPI - Asthma General Chief Complaint: Asthma Stated Complaint: ASTHMA Time Seen by Provider: 04/25/20 16:33 History of Present Illness HPI Narrative: Patient complains of shortness of breath and wheezing for the past day and a half along with a mild cough, it is similar to multiple prior asthma exacerbations and she comes to the ER, no chest pain no fever no chills Related Data Previous Rx's Medication Instructions Recorded albuterol sulfate 1 inh INHALATION QID PRN #18 g 12/12/19 prednisone 20 mg PO BID #10 tab 12/12/19 albuterol sulfate [Ventolin HFA] 2 puff INHALATION Q6H PRN #1 ea 12/29/19 prednisone 50 mg PO DAILY 4 Days #4 tab 12/29/19 prednisone 60 mg PO DAILY #15 tab 01/30/20 albuterol sulfate 2.5 mg INHALATION Q4H PRN #90 ml 04/01/20 albuterol sulfate [ProAir HFA] 2 puff INHALATION Q4-6H PRN #8.5 g 04/01/20 fluticasone propion-salmeterol 1 inh INHALATION Q12H #60 ea 04/01/20 [Advair Diskus] prednisone 60 mg PO DAILY 5 Days #15 tab 04/01/20 [id number] 15 ml PO Q4H PRN #118 ml 04/12/20 [Robitussin Cough and Cold CF] prednisone 60 mg PO DAILY #15 tab 04/12/20 albuterol sulfate 2 puff INHALATION Q4-6H PRN #6.7 g 04/25/20 albuterol sulfate 2.5 mg INHALATION Q4H PRN #75 ml 04/25/20 prednisone 60 mg PO DAILY 5 Days #15 tab 04/25/20 Allergies Allergy/AdvReac Type Severity Reaction Status Date / Time ibuprofen [From MOTRIN] Allergy Unknown SWELLING Verified 04/25/20 13:56 tramadol [TRAMADOL] Allergy Unknown SWELLING Verified 04/25/20 13:56 Review of Systems Review of Systems: Positive for wheezing shortness of breath and cough Negatives are fever chills dizziness weakness chest pain palpitations, no abdominal pain no nausea no vomiting, no calf swelling or pain, no leg swelling, no rash, no numbness or weakness Yes all other systems are reviewed and are negative [facility] Past [facility] History [facility] Narrative: Patient confirms long history of asthma Source: nursing notes reviewed Medical History Asthma delivery delivered COPD (chronic obstructive pulmonary disease) Social History Social History Alcohol intake: never Smoking Status: Never smoker Use of substances other than those prescribed or required for medical reasons: No Advance Directives: No Advance Directives Information Provided: No Physical Exam Vital Signs: Vital Signs: Last Vital Signs Temp 97.8 F 04/25/20 13:56 Pulse 96 04/25/20 20:00 Resp 18 04/25/20 20:00 BP 159/67 H 04/25/20 20:00 Pulse Ox 100 04/25/20 20:00 Body Mass Index 36.5 General appearance is no acute distress, speaking full sentences, but breathing at a rate of about 24 Head is normocephalic atraumatic Pharynx is moist and normal in appearance The neck is supple The chest breath sounds are decreased bilaterally with faint wheezes heard The heart no murmur was heard The abdomen soft nontender Extremities no calf tenderness or swelling, no edema Skin no rash Neuro no focal deficit Course Course Course Narrative: Patient felt very improved after albuterol 1 hour treatment, yet she remained tachycardic at 120 Patient wanted to go and she says she is often tachycardic after a 1 hour continuous albuterol I walked the patient who who did not develop any shortness of breath or drop in her oxygen saturation after walking and she continued to speak full sentences and feel well and wanted to go home so patient was discharged with no respiratory distress and repeat lung exam showed clear full lung sounds with good air entry no wheezing and no longer diminished and very improved Chest x-ray was negative MDM - Asthma Lab Data Labs: Lab Results 04/25/20 Range/Units 18:49 COVID-19 ([facility]) Negative (Negative) COVID-19 Clin Com See Note Discharge Plan Discharge Clinical Impression: Asthma with acute exacerbation Qualifiers: Asthma severity: moderate Asthma persistence: unspecified Qualified Code(s): J45.901 - Unspecified asthma with (acute) exacerbation Patient Disposition: Home, Self-Care Additional Instructions: Use albuterol and prednisone as directed Return any time for any trouble breathing, any worse condition any concerns Prescriptions: New albuterol sulfate 90 mcg/actuation HFA aerosol inhaler 2 puff inhalation Q4-6H PRN (Reason: shortness of breath or wheezing) Qty: 6.7 RF: 0 albuterol sulfate 2.5 mg /3 mL (0.083 %) solution for nebulization 2.5 mg inhalation Q4H PRN (Reason: shortness of breath or wheezing) Qty: 75 RF: 0 prednisone 20 mg tablet 60 mg PO DAILY 5 Days Qty: 15 RF: 0 No Action prednisone 20 mg tablet 60 mg PO DAILY Qty: 15 RF: 0 prednisone 20 mg tablet 60 mg PO DAILY Qty: 15 RF: 0 Robitussin Cough and Cold CF 2.5-5-50 mg/5 mL liquid 15 ml PO Q4H PRN (Reason: cough) Qty: 118 RF: 0 albuterol sulfate 90 mcg/actuation HFA aerosol inhaler 1 inh inhalation QID PRN (Reason: shortness of breath or wheezing) Qty: 18 RF: 0 prednisone 20 mg tablet 20 mg PO BID Qty: 10 RF: 0 albuterol sulfate [Ventolin HFA] 90 mcg/actuation HFA aerosol inhaler 2 puff inhalation Q6H PRN (Reason: shortness of breath or wheezing) Qty: 1 RF: 0 prednisone 50 mg tablet 50 mg PO DAILY 4 Days Qty: 4 RF: 0 prednisone 20 mg tablet 60 mg PO DAILY 5 Days Qty: 15 RF: 0 albuterol sulfate [ProAir HFA] 90 mcg/actuation HFA aerosol inhaler 2 puff inhalation Q4-6H PRN (Reason: shortness of breath or wheezing) Qty: 8.5 RF: 0 fluticasone propion-salmeterol [Advair Diskus] 250-50 mcg/dose blister with device 1 inh inhalation Q12H Qty: 60 RF: 0 albuterol sulfate 2.5 mg /3 mL (0.083 %) solution for nebulization 2.5 mg inhalation Q4H PRN (Reason: shortness of breath or wheezing) Qty: 90 RF: 0 Interventions: ED Discharge Assessment Last Done: 04/25/20 20:28 Discharge Date/Time: 04/25/20 20:29
[2020-04-25 19:14] LABS: COVID-19 Test Negative (Negative)
--- NOTE | 2020-04-25 19:14 | PC.NURSE ---
rt to bedside now.
[2020-04-25 19:20] VITALS: PULSE 103; O2SAT 100
[2020-04-25 20:00] VITALS: BP 159/67; PULSE 96; RESP 18; O2SAT 100
--- NOTE | 2020-04-25 20:19 | PC.NURSE ---
called and left message for friend.
[2020-04-25] MEDS: Albuterol Sulfate 90 MCG 8 GM INHALER 2 PUFF INHALE (20:22)
== END 2020-04-25 20:29 | disposition home or self-care (01) ==
PROVIDERS: Physician Assistant Medical; Emergency Provider Internal Medicine; PCP Internal Medicine
DX: J45.901 Unspecified asthma with (acute) exacerbation (principal); Z20.822 Contact with and (suspected) exposure to COVID-19; Z79.899 Other long term (current) drug therapy
CPT/HCPCS: 36415; 71046; 87635; 94640; 94644; 94645; 99284

== ENCOUNTER 2020-07-22 09:33 | Emergency (ER) | payer MEDICAID, SELFPAY ==
--- NOTE | ~2020-07-22 | XR_ITS ---
EXAMINATION: XR CHEST CLINICAL INFORMATION: Shortness of breath COMPARISON: Chest x-ray 04/25/2020 TECHNIQUE: 2 views of the chest were obtained. FINDINGS: Cardiac silhouette is normal in size. The lungs are well aerated. There is no lobar consolidation. No pleural effusion or pneumothorax. No acute osseous abnormality. XR/XR chest 2V IMPRESSION: No acute pulmonary pathology.
[2020-07-22 09:35] VITALS: BP 151/104; PULSE 112; RESP 24; TEMP 37.1; O2SAT 92; BMI 37.5
--- NOTE | 2020-07-22 10:06 | ED_ITS ---
HPI - SOB/Dyspnea General Chief Complaint: Dyspnea Stated Complaint: ASTHMA Time Seen by Provider: 07/22/20 09:59 Source: patient Mode of arrival: ambulatory Limitations: no limitations History of Present Illness HPI Narrative: Patient is a 39-year-old female the past medical history of asthma who comes in after being short of breath for 3 days. She admits to wheezing. She states she was able to use her albuterol nebulizer, ProAir and Advair but ran out of all 3 medications yesterday. Patient does have a PCP but apparently has no refills on those medications. She denies fever, chills, sick contacts, or chest pain. She has been evaluated in this emergency department several times for asthma exacerbations. Related Data Previous Rx's Medication Instructions Recorded albuterol sulfate 1 inh INHALATION QID PRN #18 g 12/12/19 prednisone 20 mg PO BID #10 tab 12/12/19 albuterol sulfate [Ventolin HFA] 2 puff INHALATION Q6H PRN #1 ea 12/29/19 prednisone 50 mg PO DAILY 4 Days #4 tab 12/29/19 prednisone 60 mg PO DAILY #15 tab 01/30/20 albuterol sulfate 2.5 mg INHALATION Q4H PRN #90 ml 04/01/20 albuterol sulfate [ProAir HFA] 2 puff INHALATION Q4-6H PRN #8.5 g 04/01/20 fluticasone propion-salmeterol 1 inh INHALATION Q12H #60 ea 04/01/20 [Advair Diskus] prednisone 60 mg PO DAILY 5 Days #15 tab 04/01/20 ynbouqamjoldu-MW-shgtmydbcnt 15 ml PO Q4H PRN #118 ml 04/12/20 [Robitussin Cough and Cold CF] prednisone 60 mg PO DAILY #15 tab 04/12/20 albuterol sulfate 2 puff INHALATION Q4-6H PRN #6.7 g 04/25/20 albuterol sulfate 2.5 mg INHALATION Q4H PRN #75 ml 04/25/20 prednisone 60 mg PO DAILY 5 Days #15 tab 04/25/20 albuterol sulfate 2 puff INHALATION Q6H PRN #6.7 g 07/22/20 fluticasone propion-salmeterol 1 inh INHALATION Q12H #60 ea 07/22/20 ipratropium-albuterol 3 ml INHALATION Q4-6H PRN #90 ml 07/22/20 prednisone 50 mg PO DAILY #4 tab 07/22/20 Allergies Allergy/AdvReac Type Severity Reaction Status Date / Time ibuprofen [From MOTRIN] Allergy Unknown SWELLING Verified 04/25/20 13:56 tramadol [TRAMADOL] Allergy Unknown SWELLING Verified 04/25/20 13:56 Review of Systems Review of Systems: Yes all other systems are reviewed and are negative [facility] Past Medical History Medical History Asthma delivery delivered COPD (chronic obstructive pulmonary disease) Social History Social History Alcohol intake: never Smoking Status: Never smoker Advance Directives: Yes Advance Directives Information Provided: No Advance Directives on File: No Patient : No Physical Exam Vital Signs: Vital Signs: Last Vital Signs Temp 98.7 F 07/22/20 09:35 Pulse 100 07/22/20 12:16 Resp 20 07/22/20 12:16 BP 128/80 07/22/20 12:16 Pulse Ox 92 07/22/20 12:16 Body Mass Index 37.5 Const: General: cooperative, healthy appearing, comfortable, well developed and in distress mild Orientation/consciousness: patient oriented x3 Limitations: no limitations HENMT: Head: Yes normal to inspection Eyes: General: appearance normal, both eyes and all related structures Neck: Neck: Yes normal visual inspection and Yes full ROM Resp: Effort & Inspection: normal respiratory effort and able to speak in complete sentences Auscultation: wheezes inspiratory wheezes and scattered wheezes Cardio: Rate: tachycardic Rhythm: regular rhythm Heart sounds: normal S1 and S2 GI: Inspection: Yes normal to inspection Skin: General skin exam: no rashes or lesions noted Neuro: General: patient oriented x3 Extrem: General: Yes normal to inspection Course Course Course Narrative: Patient is a 39-year-old female with a past medical history of asthma who has been short of breath x3 days, which she ran out of her asthma medications yesterday. Satting at 96% on 2L NC, RR 24, HR 112, BP 151/104, temp 98.7. PE remarkable for diffuse inspiratory wheezing, pt in slight distress/sob. Will give a hour long nebulizer treatment, get chest x-ray labs and give Solu- Medrol 125 mg. Will reassess an approximately 1 hour, after her tx. Will also need to refill all of her meds. Reevaluation(s) Reevaluation #1: Labs WNL, CXR neg for acute pathology. Pt's VSS. Patient still slightly wheezy but comfortable to go home and restart her asthma medications, all refills has been sent in to her pharmacy. O2 sat is 94% on room air. Patient is breathing much easier and looks comfortable. Advised patient my refills will get her through the next 30 days, also sent prednisone 50 mg x 4 days. Advised patient she needs to call her PCP so he can send refills for her. Patient understands, answered all of patient's questions. Time: 12:23 MDM - SOB/Dyspnea Lab Data Attestation: I reviewed the patient's lab results. Result diagrams: 07/22/20 10:15 07/22/20 10:15 Labs: Lab Results 07/22/20 07/22/20 Range/Units 10:15 10:15 WBC 5.6 (4.8-10.8) X10*3/uL RBC 4.13 L (4.20-5.50) X10*6/uL Hgb 10.8 L (12.0-16.0) g/dl Hct 34.6 L (37-47) % MCV 83.8 (80-98) fL MCH 26.2 L (27.0-33.0) pg MCHC 31.2 (31.0-35.0) g/dl RDW 14.4 (11.0-16.0) % Plt Count 190 (160-400) X10*3/uL MPV 10.8 (9.4-12.3) fL Immature Gran % (Auto) 0.4 (0.0-0.4) % Neut % (Auto) 63.7 (45-73) % Lymph % (Auto) 23.4 (20-40) % [place] % (Auto) 6.8 (2-11) % Eos % (Auto) 5.2 H (0-4) % Baso % (Auto) 0.5 (0-2) % Lymph # (Auto) 1.3 (1.2-4.9) X10*3/uL [place] # (Auto) 0.4 (0.1-1.2) X10*3/uL Eos # (Auto) 0.3 (0.0-0.4) X10*3/uL Baso # (Auto) 0.0 (0.0-0.2) X10*3/uL Abs Immat Gran (auto) 0.02 (0.00-0.03) X10*3/uL Absolute Neuts (auto) 3.6 (2.0-8.3) X10*3/uL Absolute Nucleated RBC 0.000 (0.0-0.012) X10*3/uL Nucleated RBC % (auto) 0.0 (0.0-0.2) /100WBC Sodium 140 (135-145) mmol/L Potassium 3.6 (3.3-5.1) mmol/L Chloride 104 (96-108) mmol/L Carbon Dioxide 24 (22-29) mmol/L Anion Gap 16 (12-20) BUN 13 (9-16) mg/dL Creatinine 0.71 (0.5-1.4) mg/dL Estim Creat Clear Calc 135.2 Estimated GFR > 60 Random Glucose 105 (60-115) mg/dL Calcium 8.6 (8.4-10.2) mg/dL Imaging Data Chest x-ray: Attestation: I personally reviewed and interpreted this imaging study as follows: My impression: No acute pathology Radiologist's impression: [address] [id number] ReportSigned Patient: Josy Harrison#: [id number]: 1980Acct:[id number]/Sex: 39 / FADM Date: 07/22/20Loc: [address]: Ordering Physician: Jessica Tena PA-C Date of Service: 07/22/20 Procedure(s): XR chest 2V Accession Number(s): [id number] cc: Jessica Tena PA-C~ EXAMINATION: XR CHEST CLINICAL INFORMATION: Shortness of breath COMPARISON: Chest x-ray 04/25/2020 TECHNIQUE: 2 views of the chest were obtained. FINDINGS: Cardiac silhouette is normal in size. The lungs are well aerated. There is no lobar consolidation. No pleural effusion or pneumothorax. No acute osseous abnormality. XR/XR chest 2V IMPRESSION: No acute pulmonary pathology. Dictated By:CHARISSE FARLEYigned By:<Electronically signed by CHARISSE FARLEY MD in OV>07/22/20 1149 DD/ 1000TD/TT: Certified Nurse Practitioner: PD Discharge Plan Discharge Clinical Impression: Asthma with exacerbation Qualifiers: Asthma severity: moderate Asthma persistence: unspecified Qualified Code(s): J45.901 - Unspecified asthma with (acute) exacerbation Patient Disposition: Home, Self-Care Instructions: Moderate and Severe Persistent Asthma (ED) Additional Instructions: I have sent refills on all 3 of your prescriptions to your pharmacy. I have also sent a prescription for 4 days of prednisone, please take 1 tablet per day for the next 4 days, each morning. If you develop shortness of breath he cannot control with her home medications, please return to the emergency department. Prescriptions: New albuterol sulfate 90 mcg/actuation HFA aerosol inhaler 2 puff inhalation Q6H PRN (Reason: shortness of breath or wheezing) Qty: 6.7 RF: 0 fluticasone propion-salmeterol 250-50 mcg/dose blister with device 1 inh inhalation Q12H Qty: 60 RF: 0 ipratropium-albuterol 0.5 mg-3 mg(2.5 mg base)/3 mL solution for nebulization 3 ml inhalation Q4-6H PRN (Reason: shortness of breath or wheezing) Qty: 90 RF: 0 prednisone 50 mg tablet 50 mg PO DAILY Qty: 4 RF: 0 No Action prednisone 20 mg tablet 60 mg PO DAILY Qty: 15 RF: 0 prednisone 20 mg tablet 60 mg PO DAILY Qty: 15 RF: 0 Robitussin Cough and Cold CF 2.5-5-50 mg/5 mL liquid 15 ml PO Q4H PRN (Reason: cough) Qty: 118 RF: 0 albuterol sulfate 90 mcg/actuation HFA aerosol inhaler 1 inh inhalation QID PRN (Reason: shortness of breath or wheezing) Qty: 18 RF: 0 prednisone 20 mg tablet 20 mg PO BID Qty: 10 RF: 0 albuterol sulfate [Ventolin HFA] 90 mcg/actuation HFA aerosol inhaler 2 puff inhalation Q6H PRN (Reason: shortness of breath or wheezing) Qty: 1 RF: 0 prednisone 50 mg tablet 50 mg PO DAILY 4 Days Qty: 4 RF: 0 prednisone 20 mg tablet 60 mg PO DAILY 5 Days Qty: 15 RF: 0 albuterol sulfate [ProAir HFA] 90 mcg/actuation HFA aerosol inhaler 2 puff inhalation Q4-6H PRN (Reason: shortness of breath or wheezing) Qty: 8.5 RF: 0 fluticasone propion-salmeterol [Advair Diskus] 250-50 mcg/dose blister with device 1 inh inhalation Q12H Qty: 60 RF: 0 albuterol sulfate 2.5 mg /3 mL (0.083 %) solution for nebulization 2.5 mg inhalation Q4H PRN (Reason: shortness of breath or wheezing) Qty: 90 RF: 0 albuterol sulfate 90 mcg/actuation HFA aerosol inhaler 2 puff inhalation Q4-6H PRN (Reason: shortness of breath or wheezing) Qty: 6.7 RF: 0 albuterol sulfate 2.5 mg /3 mL (0.083 %) solution for nebulization 2.5 mg inhalation Q4H PRN (Reason: shortness of breath or wheezing) Qty: 75 RF: 0 prednisone 20 mg tablet 60 mg PO DAILY 5 Days Qty: 15 RF: 0
[2020-07-22 10:20] LABS: MANUAL DIFF FLAG NO
[2020-07-22] MEDS: methylPREDNISolone Sod Succ 125 MG/2 ML VIAL 120 MG IVPUSH (10:20)
[2020-07-22 10:24] VITALS: PULSE 108; O2SAT 100
[2020-07-22] MEDS: Albuterol Sulfate (0.083%) 2.5 MG/3 ML VIAL.NEB 10 MG INHALE (10:24)
[2020-07-22 10:32] LABS: Basophils Percent Auto 0.5 % (0-2); Eosinophils Absolute Auto 0.3 X10*3/uL (0.0-0.4); Eosinophils Percent Auto 5.2 % (0-4); Hematocrit 34.6 % (37-47); Hemoglobin 10.8 g/dl (12.0-16.0); Imm Gran Abs Auto 0.02 X10*3/uL (0.00-0.03); Imm Gran Pct Auto 0.4 % (0.0-0.4); Lymphocytes Absolute Auto 1.3 X10*3/uL (1.2-4.9); Lymphocytes Percent Auto 23.4 % (20-40); Mean Corpuscular HGB Conc 31.2 g/dl (31.0-35.0); Mean Corpuscular Hemoglobin 26.2 pg (27.0-33.0); Mean Corpuscular Volume 83.8 fL (80-98); Mean Platelet Volume 10.8 fL (9.4-12.3); Monocytes Absolute Auto 0.4 X10*3/uL (0.1-1.2); Monocytes Percent Auto 6.8 % (2-11); Neutrophils Absolute Auto 3.6 X10*3/uL (2.0-8.3); Neutrophils Percent Auto 63.7 % (45-73); Platelet Count 190 X10*3/uL (160-400); Red Blood Count 4.13 X10*6/uL (4.20-5.50); Red Cell Distribution Width 14.4 % (11.0-16.0); White Blood Count 5.6 X10*3/uL (4.8-10.8)
[2020-07-22 10:57] VITALS: PULSE 111; RESP 26; O2SAT 93
[2020-07-22 10:58] LABS: Anion Gap 16 (12-20); Blood Urea Nitrogen 13 mg/dL (9-16); Calcium 8.6 mg/dL (8.4-10.2); Carbon Dioxide 24 mmol/L (22-29); Chloride 104 mmol/L (96-108); Creatinine Clr Calc Pharmacy 135.2; Estimated Glomerular Filt Rate > 60; Glucose Random 105 mg/dL (60-115); Potassium 3.6 mmol/L (3.3-5.1); Sodium 140 mmol/L (135-145)
[2020-07-22 12:16] VITALS: BP 128/80; PULSE 100; RESP 20; O2SAT 92
== END 2020-07-22 12:42 | disposition home or self-care (01) ==
PROVIDERS: Physician Assistant; Emergency Provider Emergency Medicine Emergency Medical Services; PCP Internal Medicine
DX: J45.901 Unspecified asthma with (acute) exacerbation (principal); R00.0 Tachycardia, unspecified; J44.9 Chronic obstructive pulmonary disease, unspecified; Z79.899 Other long term (current) drug therapy; Z79.51 Long term (current) use of inhaled steroids
CPT/HCPCS: 36415; 71046; 80048; 85025; 94640; 94644; 96374; 99284; J2930

== ENCOUNTER 2020-10-29 08:51 | Inpatient (IN) | payer MEDICAID, SELFPAY ==
[2020-10-29] VITALS (8 sets, daily range): BP systolic 149–182; BP diastolic 70–98; PULSE 94–107; RESP 18–25; TEMP 36.4–37; O2SAT 91–100; BMI 31.6
--- NOTE | ~2020-10-29 | XR_ITS ---
EXAMINATION: XR CHEST CLINICAL INFORMATION: Dyspnea. COMPARISON: None TECHNIQUE: Frontal view of the chest was obtained. FINDINGS: No significant abnormality is noted involving the heart, lungs, mediastinum, bony thorax or soft tissues. XR/XR chest 1V IMPRESSION: Unremarkable chest examination.
--- NOTE | 2020-10-29 08:57 | ED_ITS ---
HPI - Asthma General Chief Complaint: Dyspnea Stated Complaint: diff breathing Time Seen by Provider: 10/29/20 08:56 Source: patient, EMS and old records reviewed Mode of arrival: EMS Limitations: no limitations History of Present Illness HPI Narrative: EMS gave duoneb 85% on RA MD complaint: asthma attack , shortness of breath and wheezing Onset (ago): day(s) (2) Severity: moderate and similar to prior Context: none known Associated symptoms: dry cough Asthma History: history of frequent attacks Treatments Prior to Arrival: inhaled bronchodilator and oxygen Related Data Previous Rx's Medication Instructions Recorded albuterol sulfate 90 mcg/actuation 1 inh INHALATION QID PRN #18 g 12/12/19 aerosol inhaler prednisone 20 mg tablet 20 mg PO BID #10 tab 12/12/19 albuterol sulfate 90 mcg/actuation 2 puff INHALATION Q6H PRN #1 ea 12/29/19 aerosol inhaler (Ventolin HFA) prednisone 50 mg tablet 50 mg PO DAILY 4 Days #4 tab 12/29/19 prednisone 20 mg tablet 60 mg PO DAILY #15 tab 01/30/20 albuterol sulfate 2.5 mg INHALATION Q4H PRN #90 ml 04/01/20 albuterol sulfate 90 mcg/actuation 2 puff INHALATION Q4-6H PRN #8.5 g 04/01/20 aerosol inhaler (ProAir HFA) fluticasone 250 mcg-salmeterol 50 1 inh INHALATION Q12H #60 ea 04/01/20 mcg/dose blistr powdr for inhalation (Advair Diskus) prednisone 20 mg tablet 60 mg PO DAILY 5 Days #15 tab 04/01/20 wekwtgbrgvtua-LA-omelkkrnnyb 2.5 15 ml PO Q4H PRN #118 ml 04/12/20 mg-5 mg-50 mg/5 mL oral liquid (Robitussin Cough and Cold CF) prednisone 20 mg tablet 60 mg PO DAILY #15 tab 04/12/20 albuterol sulfate 2.5 mg INHALATION Q4H PRN #75 ml 04/25/20 albuterol sulfate 90 mcg/actuation 2 puff INHALATION Q4-6H PRN #6.7 g 04/25/20 aerosol inhaler prednisone 20 mg tablet 60 mg PO DAILY 5 Days #15 tab 04/25/20 albuterol sulfate 90 mcg/actuation 2 puff INHALATION Q6H PRN #6.7 g 07/22/20 aerosol inhaler fluticasone 250 mcg-salmeterol 50 1 inh INHALATION Q12H #60 ea 07/22/20 mcg/dose blistr powdr for inhalation ipratropium 0.5 mg-albuterol 3 mg 3 ml INHALATION Q4-6H PRN #90 ml 07/22/20 (2.5 mg base)/3 mL nebulization soln prednisone 50 mg tablet 50 mg PO DAILY #4 tab 07/22/20 Allergies Allergy/AdvReac Type Severity Reaction Status Date / Time ibuprofen [From MOTRIN] Allergy Unknown SWELLING Verified 04/25/20 13:56 tramadol [TRAMADOL] Allergy Unknown SWELLING Verified 04/25/20 13:56 Review of Systems Review of Systems: Constitutional : No Fever, No Chills ENT/Mouth : No Hoarseness, No sore throat, No Rhinorrhea Eyes: No Redness, No Discharge, No Vision Changes Cardiovascular : No Chest Pain, positive SOB, positive Dyspnea on Exertion, No Edema Respiratory : positive Cough, No Sputum, positive Wheezing, Gastrointestinal : No Nausea, No Vomiting, No Diarrhea, No abdominal Pain Genitourinary : No Dysuria, No Hematuria Musculoskeletal : No joint pain, No Myalgias Skin : No rash Neuro : No Weakness, No Numbness, No Headache Psych : No anxiety, depression Heme/Lymph: No Bruising, No Bleeding Endocrine : No Polyuria, No Polydipsia All other systems reviewed and are negative [facility] Past Medical History Medical History Asthma delivery delivered COPD (chronic obstructive pulmonary disease) Social History Social History (Updated 10/29/20 @ 08:59 by Kristi Medellin DO) Alcohol intake: never Patient Tobacco Use Status: Former Tobacco user Advance Directives: No Advance Directives Information Provided: No Patient : No Physical Exam Vital Signs: Vital Signs: Last Vital Signs Temp 98.4 F 10/29/20 08:57 Pulse 98 10/29/20 10:32 Resp 25 H 10/29/20 10:32 BP 168/87 H 10/29/20 10:32 Pulse Ox 91 L 10/29/20 10:32 Oxygen Flow Rate 6 10/29/20 08:57 Body Mass Index 31.6 Appearance: Alert. Oriented X3. Mild acute distress. Eyes: Pupils equal, round and reactive to light. ENT: Pharynx normal. Neck: Normal inspection. Neck supple. CVS: tachycardic heart rate and rhythm. Pulses normal. Respiratory: Mild respiratory distress retractions and tachypne. Breath sounds diffusely coarse with end exp wheezes Abdomen: Soft and non-tender. Skin: Skin warm and dry. Normal skin color. Normal skin turgor. Extremities: No lower extremity edema. No calf ttp Neuro: Oriented X 3. No motor deficit. No sensory deficit. Course Course Course Narrative: repeat albuterol 5mg neb ordered MDM - Asthma MDM Narrative Medical decision making narrative: 39 yo female with hx of recurrent asthma here with mild respiratory distress, states her nebulizer at home isn't working. She is not vaccinated at this time. Hour long 10mg neb, IV steroids, IV magnesium, CXR, COVID swab. Dispo per results and findings as well as O2 improvement. Lab Data Result diagrams: 10/29/20 09:31 10/29/20 09:31 Labs: Lab Results 10/29/20 10/29/20 10/29/20 Range/Units 09:31 09:31 09:33 WBC 6.7 (4.8-10.8) X10*3/uL RBC 3.87 L (4.20-5.50) X10*6/uL Hgb 10.5 L (12.0-16.0) g/dl Hct 33.1 L (37-47) % MCV 85.5 (80-98) fL MCH 27.1 (27.0-33.0) pg MCHC 31.7 (31.0-35.0) g/dl RDW 14.9 (11.0-16.0) % Plt Count 158 L (160-400) X10*3/uL MPV 10.6 (9.4-12.3) fL Immature Gran % (Auto) 0.3 (0.0-0.4) % Neut % (Auto) 65.4 (45-73) % Lymph % (Auto) 23.1 (20-40) % [place] % (Auto) 5.4 (2-11) % Eos % (Auto) 5.4 H (0-4) % Baso % (Auto) 0.4 (0-2) % Lymph # (Auto) 1.6 (1.2-4.9) X10*3/uL [place] # (Auto) 0.4 (0.1-1.2) X10*3/uL Eos # (Auto) 0.4 (0.0-0.4) X10*3/uL Baso # (Auto) 0.0 (0.0-0.2) X10*3/uL Abs Immat Gran (auto) 0.02 (0.00-0.03) X10*3/uL Absolute Neuts (auto) 4.4 (2.0-8.3) X10*3/uL Absolute Nucleated RBC 0.000 (0.0-0.012) X10*3/uL Nucleated RBC % (auto) 0.0 (0.0-0.2) /100WBC O2 Saturation % ABG pH at Pt Temp (7.35-7.45) ABG pCO2 at Pt Temp (32-45) mmHg ABG pO2 at Pt Temp (83-108) mmHg ABG HCO3 (22-26) mmol/L ABG Base Excess (Actual) mmol/L Sodium 139 (135-145) mmol/L Potassium 3.5 (3.3-5.1) mmol/L Chloride 105 (96-108) mmol/L Carbon Dioxide 26 (22-29) mmol/L Anion Gap 12 (12-20) BUN 14 (9-16) mg/dL Creatinine 0.74 (0.5-1.4) mg/dL Estim Creat Clear Calc 126.5 Estimated GFR > 60 Random Glucose 109 (60-115) mg/dL Calcium 8.9 (8.4-10.2) mg/dL Magnesium 2.0 (1.6-2.6) mg/dL Total Bilirubin 0.5 (0.0-1.0) mg/dL Direct Bilirubin 0.2 (0.0-0.5) mg/dL AST 21 (5-31) U/L ALT 20 (0-31) U/L Alkaline Phosphatase 71 (39-117) U/L Total Protein 6.9 (6.5-8.0) g/dL Albumin 4.3 (3.5-5.0) g/dL COVID-19 (ANGI) Negative (Negative) COVID-19 Clin Com See Note 10/29/20 Range/Units 09:37 WBC (4.8-10.8) X10*3/uL RBC (4.20-5.50) X10*6/uL Hgb (12.0-16.0) g/dl Hct (37-47) % MCV (80-98) fL MCH (27.0-33.0) pg MCHC (31.0-35.0) g/dl RDW (11.0-16.0) % Plt Count (160-400) X10*3/uL MPV (9.4-12.3) fL Immature Gran % (Auto) (0.0-0.4) % Neut % (Auto) (45-73) % Lymph % (Auto) (20-40) % [place] % (Auto) (2-11) % Eos % (Auto) (0-4) % Baso % (Auto) (0-2) % Lymph # (Auto) (1.2-4.9) X10*3/uL [place] # (Auto) (0.1-1.2) X10*3/uL Eos # (Auto) (0.0-0.4) X10*3/uL Baso # (Auto) (0.0-0.2) X10*3/uL Abs Immat Gran (auto) (0.00-0.03) X10*3/uL Absolute Neuts (auto) (2.0-8.3) X10*3/uL Absolute Nucleated RBC (0.0-0.012) X10*3/uL Nucleated RBC % (auto) (0.0-0.2) /100WBC O2 Saturation 97.0 % ABG pH at Pt Temp 7.40 (7.35-7.45) ABG pCO2 at Pt Temp 37 (32-45) mmHg ABG pO2 at Pt Temp 96 (83-108) mmHg ABG HCO3 24 (22-26) mmol/L ABG Base Excess (Actual) -0.3 mmol/L Sodium (135-145) mmol/L Potassium (3.3-5.1) mmol/L Chloride (96-108) mmol/L Carbon Dioxide (22-29) mmol/L Anion Gap (12-20) BUN (9-16) mg/dL Creatinine (0.5-1.4) mg/dL Estim Creat Clear Calc Estimated GFR Random Glucose (60-115) mg/dL Calcium (8.4-10.2) mg/dL Magnesium (1.6-2.6) mg/dL Total Bilirubin (0.0-1.0) mg/dL Direct Bilirubin (0.0-0.5) mg/dL AST (5-31) U/L ALT (0-31) U/L Alkaline Phosphatase (39-117) U/L Total Protein (6.5-8.0) g/dL Albumin (3.5-5.0) g/dL COVID-19 (ANGI) (Negative) COVID-19 Clin Com Critical Care Time Critical Care Time Critical Care Time: Yes Total Critical Care Time: 35 Attestation: repeat hour long nebs, O2 supplementation I attest to this time spent taking care of the patient Discharge Plan Discharge Clinical Impression: Asthma with exacerbation Patient Disposition: Admitted As Inpatient Prescriptions: No Action prednisone 20 mg tablet 60 mg PO DAILY Qty: 15 RF: 0 prednisone 20 mg tablet 60 mg PO DAILY Qty: 15 RF: 0 Robitussin Cough and Cold CF 2.5-5-50 mg/5 mL liquid 15 ml PO Q4H PRN (Reason: cough) Qty: 118 RF: 0 albuterol sulfate 90 mcg/actuation HFA aerosol inhaler 1 inh inhalation QID PRN (Reason: shortness of breath or wheezing) Qty: 18 RF: 0 prednisone 20 mg tablet 20 mg PO BID Qty: 10 RF: 0 albuterol sulfate [Ventolin HFA] 90 mcg/actuation HFA aerosol inhaler 2 puff inhalation Q6H PRN (Reason: shortness of breath or wheezing) Qty: 1 RF: 0 prednisone 50 mg tablet 50 mg PO DAILY 4 Days Qty: 4 RF: 0 prednisone 20 mg tablet 60 mg PO DAILY 5 Days Qty: 15 RF: 0 albuterol sulfate [ProAir HFA] 90 mcg/actuation HFA aerosol inhaler 2 puff inhalation Q4-6H PRN (Reason: shortness of breath or wheezing) Qty: 8.5 RF: 0 fluticasone propion-salmeterol [Advair Diskus] 250-50 mcg/dose blister with device 1 inh inhalation Q12H Qty: 60 RF: 0 albuterol sulfate 2.5 mg /3 mL (0.083 %) solution for nebulization 2.5 mg inhalation Q4H PRN (Reason: shortness of breath or wheezing) Qty: 90 RF: 0 albuterol sulfate 90 mcg/actuation HFA aerosol inhaler 2 puff inhalation Q4-6H PRN (Reason: shortness of breath or wheezing) Qty: 6.7 RF: 0 albuterol sulfate 2.5 mg /3 mL (0.083 %) solution for nebulization 2.5 mg inhalation Q4H PRN (Reason: shortness of breath or wheezing) Qty: 75 RF: 0 prednisone 20 mg tablet 60 mg PO DAILY 5 Days Qty: 15 RF: 0 albuterol sulfate 90 mcg/actuation HFA aerosol inhaler 2 puff inhalation Q6H PRN (Reason: shortness of breath or wheezing) Qty: 6.7 RF: 0 fluticasone propion-salmeterol 250-50 mcg/dose blister with device 1 inh inhalation Q12H Qty: 60 RF: 0 ipratropium-albuterol 0.5 mg-3 mg(2.5 mg base)/3 mL solution for nebulization 3 ml inhalation Q4-6H PRN (Reason: shortness of breath or wheezing) Qty: 90 RF: 0 prednisone 50 mg tablet 50 mg PO DAILY Qty: 4 RF: 0
[2020-10-29] MEDS: Albuterol Sulfate (0.083%) 2.5 MG/3 ML VIAL.NEB 10 MG INHALE (09:23)
[2020-10-29] MEDS: methylPREDNISolone Sod Succ 125 MG/2 ML VIAL IVPUSH (09:35)
[2020-10-29] MEDS: 0.9 % Sodium Chloride 500 ML IV (09:35)
[2020-10-29] MEDS: Magnesium Sulfate/H2O 2 GM/50 ML PIGGYBACK IV (09:35)
[2020-10-29 09:38] LABS: MANUAL DIFF FLAG NO
[2020-10-29 09:39] LABS: Basophils Percent Auto 0.4 % (0-2); Eosinophils Absolute Auto 0.4 X10*3/uL (0.0-0.4); Eosinophils Percent Auto 5.4 % (0-4); Hematocrit 33.1 % (37-47); Hemoglobin 10.5 g/dl (12.0-16.0); Imm Gran Abs Auto 0.02 X10*3/uL (0.00-0.03); Imm Gran Pct Auto 0.3 % (0.0-0.4); Lymphocytes Absolute Auto 1.6 X10*3/uL (1.2-4.9); Lymphocytes Percent Auto 23.1 % (20-40); Mean Corpuscular HGB Conc 31.7 g/dl (31.0-35.0); Mean Corpuscular Hemoglobin 27.1 pg (27.0-33.0); Mean Corpuscular Volume 85.5 fL (80-98); Mean Platelet Volume 10.6 fL (9.4-12.3); Monocytes Absolute Auto 0.4 X10*3/uL (0.1-1.2); Monocytes Percent Auto 5.4 % (2-11); Neutrophils Absolute Auto 4.4 X10*3/uL (2.0-8.3); Neutrophils Percent Auto 65.4 % (45-73); Platelet Count 158 X10*3/uL (160-400); Red Blood Count 3.87 X10*6/uL (4.20-5.50); Red Cell Distribution Width 14.9 % (11.0-16.0); White Blood Count 6.7 X10*3/uL (4.8-10.8)
[2020-10-29 09:41] LABS: ABG Base Excess -0.3 mmol/L; ABG HCO3 24 mmol/L (22-26); ABG pCO2 37 mmHg (32-45); ABG pO2 96 mmHg (83-108)
[2020-10-29 09:44] LABS: Venous Blood Gas Refer to POC result
[2020-10-29 09:56] LABS: COVID-19 Test Negative (Negative)
[2020-10-29 10:09] LABS: Alanine Aminotransferase 20 U/L (0-31); Albumin Level 4.3 g/dL (3.5-5.0); Alkaline Phosphatase 71 U/L (39-117); Anion Gap 12 (12-20); Aspartate Amino Transferase 21 U/L (5-31); Bilirubin Direct 0.2 mg/dL (0.0-0.5); Bilirubin Total 0.5 mg/dL (0.0-1.0); Blood Urea Nitrogen 14 mg/dL (9-16); Calcium 8.9 mg/dL (8.4-10.2); Carbon Dioxide 26 mmol/L (22-29); Chloride 105 mmol/L (96-108); Creatinine Clr Calc Pharmacy 126.5; Estimated Glomerular Filt Rate > 60; Glucose Random 109 mg/dL (60-115); Potassium 3.5 mmol/L (3.3-5.1); Sodium 139 mmol/L (135-145); Total Protein 6.9 g/dL (6.5-8.0)
[2020-10-29] MEDS: Albuterol Sulfate (0.083%) 2.5 MG/3 ML VIAL.NEB 5 MG INHALE (10:09)
--- NOTE | 2020-10-29 11:24 | P.HPHOSP_ITS ---
History of Present Illness Date of Service: 10/29/20 Chief Complaint: Shortness of breath 39F presented with shortness of breath. Patient has severe persistent asthma she is not compliant with her inhalers. Reports that she has baseline shortness of breath but today her shortness of breath got significantly worse. Denies any specific trigger. Denies fever, chills, cough, chest pain. In ED was found to be hypoxic on room air to 80s. She was given steroids and, bronchodilators, magnesium. Symptoms improved. Patient still hypoxic, chest x-ray unremarkable. Review of Systems Review of Systems: Constitutional: Denies fever, denies Chills Eyes: denies blurry vision ENT: denies sore throat CVS: denies chest pain Respiratory: dyspnea GI: no abdominal pain : denies dysuria MSK: denies neck pain Skin: denies rash Neuro: denies specific motor weakness Psych: denies suicidal ideation Endocrine: denies heat/cold intolerance Hematologic: denies easy bleeding Allergy: denies hives [facility] Medical History Asthma delivery delivered COPD (chronic obstructive pulmonary disease) Family history: reviewed and not pertinent Social History Alcohol intake: never Patient Tobacco Use Status: Former Tobacco user Advance Directives: No Advance Directives Information Provided: No Patient : No Meds Allergies Allergy/AdvReac Type Severity Reaction Status Date / Time ibuprofen [From MOTRIN] Allergy Unknown SWELLING Verified 04/25/20 13:56 tramadol [TRAMADOL] Allergy Unknown SWELLING Verified 04/25/20 13:56 Active Medications: Current Medications Generic Name Dose Route Start Last Admin Trade Name Freq PRN Reason Stop Dose Admin Albuterol/Ipratropium 3 ml 10/29/20 11:23 Albuterol/Iprat 2.5/0.5mg 3 Ml Ampul.Neb INHALE RQ4H PRN sob Methylprednisolone Sodium Succinate 60 mg 10/29/20 11:30 Methylprednisolone Sod Succ 125 Mg/2 Ml Vial IVPUSH Q12H VIDAL Montelukast Sodium 10 mg 10/30/20 09:00 Montelukast Sodium 10 Mg Tablet PO DAILY VIDAL Non-Formulary Medication 1 puff 10/29/20 21:00 Fluticasone Propion-Salmeterol [Advair Diskus] INHALE BID [facility] Home Medications Medication Instructions Recorded Confirmed Last Taken Type albuterol sulfate 90 mcg/actuation 2 puff INHALATION QID PRN 10/29/20 10/29/20 Unknown History aerosol inhaler (ProAir HFA) fluticasone 500 mcg-salmeterol 50 1 puff INHALATION BID 10/29/20 10/29/20 Unknown History mcg/dose blistr powdr for inhalation (Advair Diskus) ipratropium 0.5 mg-albuterol 3 mg 1 amp INHALATION Q4-6H PRN 10/29/20 10/29/20 Unknown History (2.5 mg base)/3 mL nebulization soln montelukast 10 mg tablet 1 tab PO DAILY 10/29/20 10/29/20 Unknown History Physical Exam Vital Signs and Narrative: Vital Signs: Last Vital Signs Temp 98.4 F 10/29/20 08:57 Pulse 98 10/29/20 10:32 Resp 25 H 10/29/20 10:32 BP 168/87 H 10/29/20 10:32 Pulse Ox 91 L 10/29/20 10:32 Oxygen Flow Rate 6 10/29/20 08:57 Body Mass Index 31.6 General: dyspneic, tachypneic HEENT: atraumatic Neck: normal to visual inspection CVS: S1, S2, RRR Resp: Diminished, wheezing Chest: non tender GI: soft, non tender, non distended : no CVA tenderness Skin: no rashes Extremities: no edema Neuro: Oriented X3, grossly intact Psych: cooperative Results Labs CBC and Chem 7: 10/29/20 09:31 10/29/20 09:31 Labs: Laboratory Results - last 24 hr 10/29/20 10/29/20 10/29/20 09:31 09:31 09:33 MCV 85.5 MCH 27.1 MCHC 31.7 RDW 14.9 Plt Count 158 L MPV 10.6 Immature Gran % (Auto) 0.3 Neut % (Auto) 65.4 Lymph % (Auto) 23.1 [place] % (Auto) 5.4 Eos % (Auto) 5.4 H Baso % (Auto) 0.4 Lymph # (Auto) 1.6 [place] # (Auto) 0.4 Eos # (Auto) 0.4 Baso # (Auto) 0.0 Abs Immat Gran (auto) 0.02 Absolute Neuts (auto) 4.4 Absolute Nucleated RBC 0.000 Nucleated RBC % (auto) 0.0 O2 Saturation ABG pH at Pt Temp ABG pCO2 at Pt Temp ABG pO2 at Pt Temp ABG HCO3 ABG Base Excess (Actual) Anion Gap 12 Estim Creat Clear Calc 126.5 Estimated GFR > 60 Random Glucose 109 Calcium 8.9 Magnesium 2.0 Total Bilirubin 0.5 Direct Bilirubin 0.2 AST 21 ALT 20 Alkaline Phosphatase 71 Total Protein 6.9 Albumin 4.3 COVID-19 (ANGI) Negative COVID-19 Clin Com See Note 10/29/20 09:37 MCV MCH MCHC RDW Plt Count MPV Immature Gran % (Auto) Neut % (Auto) Lymph % (Auto) [place] % (Auto) Eos % (Auto) Baso % (Auto) Lymph # (Auto) [place] # (Auto) Eos # (Auto) Baso # (Auto) Abs Immat Gran (auto) Absolute Neuts (auto) Absolute Nucleated RBC Nucleated RBC % (auto) O2 Saturation 97.0 ABG pH at Pt Temp 7.40 ABG pCO2 at Pt Temp 37 ABG pO2 at Pt Temp 96 ABG HCO3 24 ABG Base Excess (Actual) -0.3 Anion Gap Estim Creat Clear Calc Estimated GFR Random Glucose Calcium Magnesium Total Bilirubin Direct Bilirubin AST ALT Alkaline Phosphatase Total Protein Albumin COVID-19 (ANGI) COVID-19 Clin Com Imaging Radiologist's Impressions: Impressions Chest X-Ray 10/29/20 08:56 IMPRESSION: Unremarkable chest examination. Assessment and Plan (1) Asthma with exacerbation: Qualifiers: Asthma persistence: persistent Asthma severity: severe Qualified Code(s): J45.51 - Severe persistent asthma with (acute) exacerbation Status: Acute 39F presented with sob Acute hypoxic respiratory failure secondary to exacerbation of severe persistent asthma Steroids, bronchodilators, wean O2 as tolerated Low risk for VTE- encourage mobility Quality Stroke Does the patient have a stroke diagnosis?: No VTE Prior VTE?: No VTE Risk Level:: Medical - low VTE Device Contraindication: Treatment Not Indicated VTE Drug Contraindication: Treatment Not Indicated
[2020-10-29] MEDS: Albuterol/Iprat 2.5/0.5MG 3 ML AMPUL.NEB INHALE ×2 (15:42→22:03)
[2020-10-29] MEDS: 0.9 % Sodium Chloride Flush 3 ML SYRINGE IVFLUSH ×2 (16:31→21:34)
[2020-10-29] MEDS: Acetaminophen 325 MG TABLET 650 MG PO (16:31)
[2020-10-29 17:08] LABS: Glucose Urine UA NEG (NEG); Leukocyte Esterase Urine NEG (NEG); Nitrite Urine POS (NEG); Specific Gravity - Urine 1.025 (1.005-1.025); UACC Culture Trigger YES; Urine Blood NEG (NEG); Urine Ketones >=80 MG/DL (NEG); Urine Protein TRACE MG/DL (NEG-TRACE)
[2020-10-29 17:09] LABS: UPreg QC Valid YES; Urine Pregnancy NEGATIVE (NEGATIVE)
[2020-10-29 17:10] LABS: Appearance Urine CLEAR; Color Urine YELLOW
[2020-10-29 17:19] LABS: Bacteria Urine 2+ /LPF; Mucus Urine TRACE /LPF; Squamous Epithelial Cell Urine TRACE /LPF; WBC Urine 0-2 /HPF (0-4)
[2020-10-29] MEDS: methylPREDNISolone Sod Succ 125 MG/2 ML VIAL 60 MG IVPUSH (21:33)
[2020-10-29] MEDS: guaiFEN/Codeine SF 200/20/10ML 10 ML LIQUID 5 ML PO (23:00)
[2020-10-30] VITALS: BP 147/88; PULSE 101; RESP 18; TEMP 36.8; O2SAT 96
[2020-10-30] MEDS: Acetaminophen 325 MG TABLET 650 MG PO (00:13)
[2020-10-30] MEDS: Albuterol/Iprat 2.5/0.5MG 3 ML AMPUL.NEB INHALE ×2 (02:33→08:22)
[2020-10-30 02:34] VITALS: PULSE 101; O2SAT 96
[2020-10-30 03:54] VITALS: BP 189/78; PULSE 98; RESP 18; TEMP 37; O2SAT 95
[2020-10-30 07:48] VITALS: BP 143/83; PULSE 99; RESP 18; TEMP 37.1; O2SAT 99
[2020-10-30 08:25] VITALS: PULSE 102; O2SAT 100
[2020-10-30] MEDS: 0.9 % Sodium Chloride Flush 3 ML SYRINGE IVFLUSH (08:57)
[2020-10-30] MEDS: methylPREDNISolone Sod Succ 125 MG/2 ML VIAL 60 MG IVPUSH (08:57)
[2020-10-30] MEDS: Montelukast Sodium 10 MG TABLET PO (08:57)
[2020-10-30 09:15] LABS: Hematocrit 36.2 % (37-47); Hemoglobin 11.7 g/dl (12.0-16.0); Mean Corpuscular HGB Conc 32.3 g/dl (31.0-35.0); Mean Corpuscular Hemoglobin 27.3 pg (27.0-33.0); Mean Corpuscular Volume 84.6 fL (80-98); Mean Platelet Volume 11.4 fL (9.4-12.3); Platelet Count 202 X10*3/uL (160-400); Red Blood Count 4.28 X10*6/uL (4.20-5.50); Red Cell Distribution Width 14.7 % (11.0-16.0); White Blood Count 8.5 X10*3/uL (4.8-10.8)
[2020-10-30 09:35] LABS: Anion Gap 14 (12-20); Blood Urea Nitrogen 12 mg/dL (9-16); Calcium 9.7 mg/dL (8.4-10.2); Carbon Dioxide 22 mmol/L (22-29); Chloride 106 mmol/L (96-108); Creatinine Clr Calc Pharmacy 124.8; Estimated Glomerular Filt Rate > 60; Glucose Fasting 171 mg/dL (60-99); Potassium 3.9 mmol/L (3.3-5.1); Sodium 138 mmol/L (135-145)
[2020-10-30] MEDS: Ibuprofen 200 MG TABLET PO (09:40)
--- NOTE | 2020-10-30 09:45 | PM.DS ---
DS: Providers Provider Date of Service: 10/30/20 Date of admission: 10/29/20 11:23 Primary care physician: Colby Nathan MD DS: Diagnosis Discharge Diagnosis (1) Asthma with exacerbation: Status: Acute DS: Medications Discharge Medications Home Medications: Home Medications Medication Instructions Recorded Confirmed albuterol sulfate 90 mcg/actuation 2 puff INHALATION QID PRN 10/29/20 10/29/20 aerosol inhaler (ProAir HFA) ipratropium 0.5 mg-albuterol 3 mg 1 amp INHALATION Q4-6H PRN 10/29/20 10/29/20 (2.5 mg base)/3 mL nebulization soln Previous Rx's Medication Instructions Recorded fluticasone 500 mcg-salmeterol 50 1 puff INHALATION BID #1 ea 10/30/20 mcg/dose blistr powdr for inhalation (Advair Diskus) ipratropium 0.5 mg-albuterol 3 mg 3 ml INHALATION RQ4H PRN #60 ml 10/30/20 (2.5 mg base)/3 mL nebulization soln montelukast 10 mg tablet 1 tab PO DAILY #30 tab 10/30/20 prednisone 20 mg tablet 40 mg PO DAILY #10 tab 10/30/20 DS: Summary Hospital Course Hospital Course: Patient was admitted for acute hypoxic respiratory failure secondary to exacerbation of severe persistent asthma. Patient was given steroids, bronchodilators and improved faster than expected. By next day patient was off of oxygen saturatating 99% on room air and feeling much better. She will be discharged home on prednisone, encouraged to follow-up with primary care and fill maintenance medications. She is also encouraged to get vaccinated for COVID. Time Spent with Patient Time attestation: Total time spent providing and/or coordinating discharge services: Discharge coordination time: Greater than 30 minutes Quality: Stroke Does the patient have a stroke diagnosis?: No Physical Exam Vital Signs: Vital Signs: Last Vital Signs Temp 98.7 F 10/30/20 07:48 Pulse 102 H 10/30/20 08:25 Resp 18 10/30/20 07:48 BP 143/83 H 10/30/20 07:48 Pulse Ox 99 10/30/20 07:48 Oxygen Flow Rate 6 10/29/20 08:57 Body Mass Index 31.6 General: AO X 3, no acute distress Resp: CTA bilateral CVS: S1,S2,RRR GI: soft, non tender, non distended Neuro: motor grossly intact Psych: appropriate affect DS: Data Data Completed and Pending Labs on day of discharge: Laboratory Results - last 24 hr 10/29/20 10/29/20 10/29/20 09:31 09:33 16:54 WBC RBC Hgb Hct MCV MCH MCHC RDW Plt Count MPV Absolute Nucleated RBC Nucleated RBC % (auto) Sodium 139 Potassium 3.5 Chloride 105 Carbon Dioxide 26 Anion Gap 12 BUN 14 Creatinine 0.74 Estim Creat Clear Calc 126.5 Estimated GFR > 60 Random Glucose 109 Fasting Glucose Calcium 8.9 Magnesium 2.0 Total Bilirubin 0.5 Direct Bilirubin 0.2 AST 21 ALT 20 Alkaline Phosphatase 71 Total Protein 6.9 Albumin 4.3 Urine Color YELLOW Urine Appearance CLEAR Urine pH 6.0 Ur Specific [place] 1.025 Urine Protein TRACE Urine Glucose (UA) NEG Urine Ketones >=80 Urine Blood NEG Urine Nitrite POS H Ur Leukocyte Esterase NEG Urine RBC 1-4 Urine WBC 0-2 Ur Squamous Epith Cells TRACE Urine Bacteria 2+ Urine Mucus TRACE Urine Test COVID-19 (ANGI) Negative COVID-19 [employer] Signals Com See Note 10/29/20 10/30/20 10/30/20 16:54 08:57 08:57 WBC 8.5 RBC 4.28 Hgb 11.7 L Hct 36.2 L MCV 84.6 MCH 27.3 MCHC 32.3 RDW 14.7 Plt Count 202 D MPV 11.4 Absolute Nucleated RBC 0.000 Nucleated RBC % (auto) 0.0 Sodium 138 Potassium 3.9 Chloride 106 Carbon Dioxide 22 Anion Gap 14 BUN 12 Creatinine 0.75 Estim Creat Clear Calc 124.8 Estimated GFR > 60 Random Glucose Fasting Glucose 171 H Calcium 9.7 D Magnesium Total Bilirubin Direct Bilirubin AST ALT Alkaline Phosphatase Total Protein Albumin Urine Color Urine Appearance Urine pH Ur Specific [place] Urine Protein Urine Glucose (UA) Urine Ketones Urine Blood Urine Nitrite Ur Leukocyte Esterase Urine RBC Urine WBC Ur Squamous Epith Cells Urine Bacteria Urine Mucus Urine Test NEGATIVE COVID-19 (ANGI) COVID-19 Clin Com Preliminary micro results at discharge 10/29/20 16:54 Urine Culture - Preliminary Urine clean catch - Urine jennings top Gram negative corey Discharge Plan Discharge Patient Disposition: Home, Self-Care Discharge Diagnosis: asthma Referrals: Colby Nathan MD [Primary Care Provider] - 1 Week Discharge Medications: New ipratropium-albuterol 0.5 mg-3 mg(2.5 mg base)/3 mL Solution For Nebulization 3 ml inhalation RQ4H PRN (Reason: sob) Qty: 60 RF: 0 prednisone 20 mg tablet 40 mg PO DAILY Qty: 10 RF: 0 Continued ipratropium-albuterol 0.5 mg-3 mg(2.5 mg base)/3 mL solution for nebulization 1 amp inhalation Q4-6H PRN (Reason: wheezing) RF: 0 albuterol sulfate [ProAir HFA] 90 mcg/actuation HFA aerosol inhaler 2 puff inhalation QID PRN (Reason: asthma) RF: 0 fluticasone propion-salmeterol [Advair Diskus] 500-50 mcg/dose blister with device 1 puff inhalation BID Qty: 1 RF: 0 montelukast 10 mg tablet 1 tab PO DAILY Qty: 30 RF: 0 Discharge Orders: Discharge Order (Routine); Ordered 10/30/20 Ordered By: Guillermo Zelaya Diet: advance to usual diet Activity on Discharge: As tolerated Stand Alone Forms: Patient Portal Discharge page Care Plan Goals: recovery, avoid hospitalizations Health Concerns: asthma, non compliance with medications, risk for covid Plan of Treatment: prednisone course, restart advair, follow up with pcp, get vaccinated for covid Assessment: see above
--- NOTE | 2020-10-30 10:19 | MHC.CM.PN ---
EMR REVIEWED, PT ADMITTED W/ASTHMA EXAC, CM MET W/PT WHO IS A&O, PT REPORTS SHE LIVES IN [place] W/HER 3 CHILDREN, PT REPORTS SHE IS INDEPENDENT W/CARE, DENIES USE OF DME & HOME SERVICES, PT VERIFIES PCP IS SIMONE ESCAMILLA AND DECLINES ASSISTANCE W/HCP AT THIS TIME, PT ANXIOUS TO D/C AND REQUESTS [facility] SHUTTLE WHICH HAS BEEN ARRANGED BY CM. D/C PLAN: HOME TODAY SELF-CARE, [facility] SHUTTLE FOR TRANSPORT.
--- NOTE | 2020-10-30 11:07 | PC.NURSE ---
pt instructed on discharge to [facility] from [facility].
== END 2020-10-30 10:59 | disposition home or self-care (01) | DRG 141 ==
LOC: HO.ED 10:40 → HO.EDOVER 11:35 → HO.S3 14:35
PROVIDERS: Admitting Provider Internal Medicine; Emergency Provider Emergency Medicine; PCP Internal Medicine; Visit Provider Internal Medicine
DX: J45.51 Severe persistent asthma with (acute) exacerbation (principal); J96.01 Acute respiratory failure with hypoxia; Z20.822 Contact with and (suspected) exposure to COVID-19; Z79.51 Long term (current) use of inhaled steroids; Z88.5 Allergy status to narcotic agent; Z88.6 Allergy status to analgesic agent; Z79.899 Other long term (current) drug therapy
CPT/HCPCS: 36415; 71045; 80048; 80076; 81001; 81025; 82803; 83735; 85025; 85027; 87086; 87088; 87186; 87635; 94640; 94644; 99284; J2930; J3475

== ENCOUNTER 2021-08-15 14:44 | Inpatient (IN) | payer MEDICAID, SELFPAY ==
[2021-08-15] VITALS (9 sets, daily range): BP systolic 140–161; BP diastolic 84–104; PULSE 101–126; RESP 16–24; TEMP 36.6–37.3; O2SAT 91–99; BMI 27.1
--- NOTE | ~2021-08-15 | XR_ITS ---
EXAMINATION: XR CHEST CLINICAL INFORMATION: Short of breath COMPARISON: 10/29/2020 TECHNIQUE: 2 views of the chest were obtained. FINDINGS: The lungs are well expanded. There is no focal consolidation, edema, or effusion. No pneumothorax. The cardiomediastinal silhouette is within normal limits. No acute osseous abnormality. XR/XR chest 2V IMPRESSION: Clear lungs.
[2021-08-15 15:15] LABS: MANUAL DIFF FLAG NO
[2021-08-15 15:21] LABS: Basophils Percent Auto 0.5 % (0-2); Eosinophils Absolute Auto 0.4 X10*3/uL (0.0-0.4); Eosinophils Percent Auto 4.7 % (0-4); Hemoglobin 11.4 g/dl (12.0-16.0); Imm Gran Abs Auto 0.03 X10*3/uL (0.00-0.03); Imm Gran Pct Auto 0.4 % (0.0-0.4); Lymphocytes Absolute Auto 1.8 X10*3/uL (1.2-4.9); Lymphocytes Percent Auto 21.6 % (20-40); Mean Corpuscular HGB Conc 31.7 g/dl (31.0-35.0); Mean Corpuscular Hemoglobin 26.9 pg (27.0-33.0); Mean Corpuscular Volume 84.9 fL (80.0-98.0); Mean Platelet Volume 10.5 fL (9.4-12.3); Monocytes Absolute Auto 0.4 X10*3/uL (0.1-1.2); Monocytes Percent Auto 4.7 % (2-11); Neutrophils Absolute Auto 5.7 x10*3/uL (2.0-8.3); Neutrophils Percent Auto 68.1 % (45-73); Platelet Count 186 X10*3/uL (160-400); Red Blood Count 4.24 X10*6/uL (4.20-5.50); Red Cell Distribution Width 13.4 % (11.0-16.0); White Blood Count 8.3 X10*3/uL (4.8-10.8)
[2021-08-15] MEDS: methylPREDNISolone Sod Succ 125 MG/2 ML VIAL IVPUSH (15:21)
[2021-08-15] MEDS: Magnesium Sulfate/D5W 1 GM/100 ML PIGGYBACK IV (15:22)
[2021-08-15] MEDS: Albuterol Sulfate (0.083%) 2.5 MG/3 ML VIAL.NEB 10 MG INHALE (15:29)
[2021-08-15 15:40] LABS: Alanine Aminotransferase 20 U/L (0-31); Albumin Level 4.3 g/dL (3.5-5.0); Alkaline Phosphatase 64 U/L (39-117); Anion Gap 15 (12-20); Aspartate Amino Transferase 25 U/L (5-31); Bilirubin Total 0.2 mg/dL (0.0-1.0); Blood Urea Nitrogen 11 mg/dL (9-16); COVID-19 Test Negative (Negative); Calcium 8.5 mg/dL (8.4-10.2); Carbon Dioxide 21 mmol/L (22-29); Chloride 107 mmol/L (96-108); Creatinine Clr Calc Pharmacy 114.7; Estimated Glomerular Filt Rate > 60; Glucose Random 118 mg/dL (60-115); IDNOW Serial# 16C4AD1C; Potassium 3.9 mmol/L (3.3-5.1); Sodium 139 mmol/L (135-145); Total Protein 7.4 g/dL (6.5-8.0)
[2021-08-15 15:41] LABS: Influenza A Negative (Negative); Influenza B2 Negative (Negative)
[2021-08-15] MEDS: Albuterol Sulfate (0.083%) 2.5 MG/3 ML VIAL.NEB 5 MG INHALE (15:59)
--- NOTE | 2021-08-15 16:04 | ED_ITS ---
HPI - SOB/Dyspnea General Chief Complaint: Dyspnea Stated Complaint: SOB Time Seen by Provider: 08/15/21 14:59 Source: patient Mode of arrival: ambulatory Limitations: no limitations History of Present Illness HPI Narrative: 40-year-old female presents with 1 day of shortness of breath. Patient has a history of asthma, and states that her last nebulizer treatment was yesterday, states that she ran out of her nebulizer medication no recent cough, no upper respiratory symptoms, no recent fever Related Data Home Medications Medication Instructions Recorded Confirmed albuterol sulfate 90 mcg/actuation 2 puff inhalation QID PRN asthma 10/29/20 10/29/20 aerosol inhaler (ProAir HFA) ipratropium 0.5 mg-albuterol 3 mg 1 amp inhalation Q4-6H PRN wheezing 10/29/20 10/29/20 (2.5 mg base)/3 mL nebulization soln Previous Rx's Medication Instructions Recorded fluticasone 500 mcg-salmeterol 50 1 puff inhalation BID #1 ea 10/30/20 mcg/dose blistr powdr for inhalation (Advair Diskus) ipratropium 0.5 mg-albuterol 3 mg 3 ml inhalation RQ4H PRN sob #60 mL 10/30/20 (2.5 mg base)/3 mL nebulization soln montelukast 10 mg tablet 1 tab PO DAILY #30 tabs 10/30/20 prednisone 20 mg tablet 40 mg PO DAILY #10 tabs 10/30/20 Allergies Allergy/AdvReac Type Severity Reaction Status Date / Time ibuprofen [From MOTRIN] Allergy Unknown SWELLING Verified 04/25/20 13:56 tramadol [TRAMADOL] Allergy Unknown SWELLING Verified 04/25/20 13:56 Review of Systems Constitutional: Constitutional: Denies body ache(s), Denies chills, Denies fatigue, Denies fever(s), Denies headache(s), Denies malaise and Denies weakness Eyes: Eyes: Denies blurry vision, Denies exophthalmos and Denies diplopia ENT: Denies otalgia, Denies headache(s), Denies nasal discharge, Denies nasal obstruction and Denies sore throat Cardiovascular: Cardiovascular: Denies chest pain, Denies syncope, Denies leg edema, Denies lightheadedness, Denies Loss of Consciousness, Denies palpitations, Reports dyspnea and Reports dyspnea on exertion Respiratory: Respiratory: Denies chest congestion, Denies cough, Reports dyspnea, Reports dyspnea on exertion, Denies stridor and Reports wheezing Gastrointestinal: Gastrointestinal: Denies abdominal pain, Denies hematochezia, Denies constipation, Denies diarrhea, Denies nausea and Denies vomiting Musculoskeletal: Musculoskeletal: Reports no additional musculoskeletal complaints Neurologic: Denies confusion, Denies syncope, Denies headache(s) and Denies weakness Psychiatric: Psychiatric: Denies anxiety, Denies confusion and Denies depression Endocrine: Endocrine: Denies fatigue and Denies palpitations Allergic/Immunologic: Allergic/Immunologic: Reports wheezing PMFSH Past Medical History Medical History Asthma delivery delivered COPD (chronic obstructive pulmonary disease) Social History Social History Household Members: Children Housing: House Alcohol intake: never Patient Tobacco Use Status: Former Tobacco user Advance Directives: No Advance Directives Information Provided: No service: No Current occupational status: unemployed Physical Exam Vital Signs: Vital Signs: Last Vital Signs Temp 98.1 F 08/15/21 17:50 Pulse 101 H 08/15/21 17:50 Resp 16 08/15/21 17:50 BP 161/90 H 08/15/21 17:50 Pulse Ox 96 08/15/21 17:50 O2 Del Method 08/15/21 17:50 BMI result Body Mass Index 27.1 Const: General: No confusion Nutritional Appearance: well nourished Orientation/consciousness: No confusion Limitations: no limitations HEENT: Head: Yes normal to inspection, Yes normocephalic and Yes atraumatic Ears: hearing grossly normal bilaterally, external ears normal, TM's normal bilaterally and EAC's normal General nose exam: Normal external nose present Face and sinus: Yes normal facial exam and Yes sinuses nontender Mouth: Normal oral and palatal mucosa present Throat: Yes posterior oropharynx normal Eyes: Conjunctivae: conjunctivae normal Pupils: Equal, round and reactive pupils present EOM: EOMs intact bilaterally Neck: Neck: Yes full ROM, Yes no lymphadenopathy and Yes supple Resp: Effort & Inspection: able to speak in complete sentences, audible wheezes, no grunting, labored, no nasal flaring, no pursed lip breathing, respiratory distress, retractions, tachypneic and no tripod positioning Auscultation: no crackles, no rales, rhonchi, wheezes and diminished lung sounds Cardio: Rate: regular rate Rhythm: regular rhythm Heart sounds: S1 normal heart sound present and S2 normal heart sound present GI: Inspection: Yes normal to inspection Palpation (GI): Soft to palpation, nontender, no guarding and not rigid Percussion: Yes normal to percussion Auscultation: normal bowel sounds Skin: General skin exam: no rashes or lesions noted Neuro: General: No confusion Cranial nerves: Yes Equal, round and reactive pupils present Extrem: General: Yes normal to inspection and Yes full ROM Psych: Appearance: grossly normal Affect: normal affect Attitude: cooperative Thought process: Normal thought process present Course Course Course Narrative: 4 0 - y e a r - o l d f e m a l e w i t h p a s t m e d i c a l h i s tory of asthma and COPD presents for 1 day of shortness of breath. Patient ran out of her nebulizer medication, and shortly thereafter started to have wheezing and shortness of breath. Patient denies fevers, coug h, chest pain, nausea, vomiting, diarrhea, runny nose, sore throat, ear pain on exam, patient is tachypneic at 24, tachycardic at 120, satting 91% on room air, hypertensive at 140/104 patient given 15 mg continuous albuterol, Solu-Medrol, magnesium chemistries and hematology are within normal limits. COVID and flu negative FINDINGS: The lungs are well expanded. There is no focal consolidation, edema, or effusion. No pneumothorax. The cardiomediastinal silhouette is within normal limits. No acute osseous abnormality. XR/XR chest 2V IMPRESSION: Clear lungs. Reevaluation(s) Reevaluation #1: On re-evaluation, patient is moving more air, still wheezy and rhonchorous, still tachypneic and tachycardic, with retractions, and work of breathing. Patient is satting 92% on room air, states she gets dyspneic with movement, states she was short of breath while walking to the bathroom. Reevaluation #2: On re-evaluation, patient's heart rate is 96, respirations 19, patient is satting 91% on room air VBG is within normal limits Lung still wheezy and rhonchorous, diminished at the bases. Patient tachycardic at 117, still has some work of breathing, oxygen saturation during ambulation falls to 84% when ambulating After ambulating down the diggs, patient has RR of 26, she is breathing hard, and is satting only 90% in bed Requesting admission, will give patient another breathing treatment MDM - SOB/Dyspnea Lab Data Result diagrams: 08/15/21 15:09 08/15/21 15:09 Labs: Lab Results 08/15/21 08/15/21 08/15/21 Range/Units 15:09 15:09 15:09 WBC 8.3 (4.8-10.8) X10*3/uL RBC 4.24 (4.20-5.50) X10*6/uL Hgb 11.4 L (12.0-16.0) g/dl Hct 36.0 L (37.0-47.0) % MCV 84.9 (80.0-98.0) fL MCH 26.9 L (27.0-33.0) pg MCHC 31.7 (31.0-35.0) g/dl RDW 13.4 (11.0-16.0) % Plt Count 186 (160-400) X10*3/uL MPV 10.5 (9.4-12.3) fL Immature Gran % (Auto) 0.4 (0.0-0.4) % Neut % (Auto) 68.1 (45-73) % Lymph % (Auto) 21.6 (20-40) % [place] % (Auto) 4.7 (2-11) % Eos % (Auto) 4.7 H (0-4) % Baso % (Auto) 0.5 (0-2) % Lymph # (Auto) 1.8 (1.2-4.9) X10*3/uL [place] # (Auto) 0.4 (0.1-1.2) X10*3/uL Eos # (Auto) 0.4 (0.0-0.4) X10*3/uL Baso # (Auto) 0.0 (0.0-0.2) X10*3/uL Abs Immat Gran (auto) 0.03 (0.00-0.03) X10*3/uL Absolute Neuts (auto) 5.7 (2.0-8.3) x10*3/uL Absolute Nucleated RBC 0.000 (0.0-0.012) X10*3/uL Nucleated RBC % (auto) 0.0 (0.0-0.2) /100WBC VBG pH (7.32-7.43) VBG pCO2 mmHg VBG pO2 mmHg VBG HCO3 (22-26) mmol/L VBG O2 Saturation % VBG Base Excess mmol/L Sodium (135-145) mmol/L Potassium (3.3-5.1) mmol/L Chloride (96-108) mmol/L Carbon Dioxide (22-29) mmol/L Anion Gap (12-20) BUN (9-16) mg/dL Creatinine (0.5-1.4) mg/dL Estim Creat Clear Calc Estimated GFR Random Glucose (60-115) mg/dL Calcium (8.4-10.2) mg/dL Total Bilirubin (0.0-1.0) mg/dL AST (5-31) U/L ALT (0-31) U/L Alkaline Phosphatase (39-117) U/L Total Protein (6.5-8.0) g/dL Albumin (3.5-5.0) g/dL COVID-19 (ANGI) Negative (Negative) COVID-19 Clin Com See Note Influenza Type A (CHELSEY) Negative (Negative) Influenza Type B (CHELSEY) Negative (Negative) Influenza A & B Note See Note 08/15/21 08/15/21 Range/Units 15:09 17:29 WBC (4.8-10.8) X10*3/uL RBC (4.20-5.50) X10*6/uL Hgb (12.0-16.0) g/dl Hct (37.0-47.0) % MCV (80.0-98.0) fL MCH (27.0-33.0) pg MCHC (31.0-35.0) g/dl RDW (11.0-16.0) % Plt Count (160-400) X10*3/uL MPV (9.4-12.3) fL Immature Gran % (Auto) (0.0-0.4) % Neut % (Auto) (45-73) % Lymph % (Auto) (20-40) % [place] % (Auto) (2-11) % Eos % (Auto) (0-4) % Baso % (Auto) (0-2) % Lymph # (Auto) (1.2-4.9) X10*3/uL [place] # (Auto) (0.1-1.2) X10*3/uL Eos # (Auto) (0.0-0.4) X10*3/uL Baso # (Auto) (0.0-0.2) X10*3/uL Abs Immat Gran (auto) (0.00-0.03) X10*3/uL Absolute Neuts (auto) (2.0-8.3) x10*3/uL Absolute Nucleated RBC (0.0-0.012) X10*3/uL Nucleated RBC % (auto) (0.0-0.2) /100WBC VBG pH 7.34 (7.32-7.43) VBG pCO2 41 mmHg VBG pO2 45 mmHg VBG HCO3 22 (22-26) mmol/L VBG O2 Saturation 67.0 % VBG Base Excess -2.8 mmol/L Sodium 139 (135-145) mmol/L Potassium 3.9 (3.3-5.1) mmol/L Chloride 107 (96-108) mmol/L Carbon Dioxide 21 L (22-29) mmol/L Anion Gap 15 (12-20) BUN 11 (9-16) mg/dL Creatinine 0.68 (0.5-1.4) mg/dL Estim Creat Clear Calc 114.7 Estimated GFR > 60 Random Glucose 118 H (60-115) mg/dL Calcium 8.5 D (8.4-10.2) mg/dL Total Bilirubin 0.2 (0.0-1.0) mg/dL AST 25 (5-31) U/L ALT 20 (0-31) U/L Alkaline Phosphatase 64 (39-117) U/L Total Protein 7.4 (6.5-8.0) g/dL Albumin 4.3 (3.5-5.0) g/dL COVID-19 (ANGI) (Negative) COVID-19 Clin Com Influenza Type A (CHELSEY) (Negative) Influenza Type B (CHELSEY) (Negative) Influenza A & B Note Discharge Plan Discharge Clinical Impression: Asthma with exacerbation Patient Disposition: Admitted As Inpatient
[2021-08-15 17:39] LABS: Venous Blood Gas Refer to POC result
[2021-08-15 17:40] LABS: VBG Base Excess -2.8 mmol/L; VBG HCO3 22 mmol/L (22-26); VBG pCO2 41 mmHg; VBG pH 7.34 (7.32-7.43); VBG pO2 45 mmHg
[2021-08-15] MEDS: Albuterol/Iprat 2.5/0.5MG 3 ML AMPUL.NEB INHALE ×2 (19:00→22:44)
--- NOTE | 2021-08-15 20:01 | PHA.MEDREC ---
Pharmacy Consult ? Medication Reconciliation Pharmacy has completed the medication reconciliation.
--- NOTE | 2021-08-15 22:14 | P.HPHOSP_ITS ---
History of Present Illness Date of Service: 08/15/21 Chief Complaint: Shortness of breath 40-year-old female with a past medical history of asthma presented to the hospital today with a chief complaint of shortness of breath. Patient reported that over the past 2 days she has been having shortness of breath assessment cough. Denies any fevers and chills. Denies any sputum production. Mentions she tried her home inhalers with no significant improvement. Denies any new triggers or sick contacts. Denies any long travel or calf pain. Denies any chest pain or palpitations. Review of all other systems is negative except mentioned above ER course: Per ER team patient on presentation noted to be short of breath, wheezing; mildly tachypneic, tachycardic; saturating 95% on room air; given nebulizations and steroids; but patient still continued to be having symptoms. Labs benign. Hence decided to admit to the hospital under impression of acute asthma exacerbation. [facility] Medical History (Updated 10/12/21 @ 23:21 by Ruy Graves MD) Asthma delivery delivered COPD (chronic obstructive pulmonary disease) Pertinent family history: Denies any significant family history. Social History Household Members: Children Housing: Apartment Alcohol intake: never Patient Tobacco Use Status: Former Tobacco user service: No Current occupational status: unemployed Meds Allergies Allergy/AdvReac Type Severity Reaction Status Date / Time ibuprofen [From MOTRIN] Allergy Unknown SWELLING Verified 04/25/20 13:56 tramadol [TRAMADOL] Allergy Unknown SWELLING Verified 04/25/20 13:56 Active Medications: Current Medications Acetaminophen (Acetaminophen 325 Mg Tablet) 650 mg PO Q6H PRN PRN Reason: Pain, Mild (Pain Scale 1-3) Albuterol/Ipratropium (Albuterol/Iprat 2.5/0.5mg 3 Ml Ampul.Neb) 3 ml INHALE RQ4H WHILE AWAKE VIDAL Albuterol/Ipratropium (Albuterol/Iprat 2.5/0.5mg 3 Ml Ampul.Neb) 3 ml INHALE RQ4H PRN PRN Reason: Shortness of Breath/Wheezing Azithromycin (Azithromycin 500 Mg Tablet) 500 mg PO Q24H VIDAL Benzonatate (Benzonatate 100 Mg Capsule) 100 mg PO TID PRN PRN Reason: Cough Enoxaparin Sodium (Enoxaparin Sodium 40 Mg/0.4 Ml Syringe) 40 mg SUBCUT Q24H [facility] Melatonin (Melatonin 3 Mg Tablet) 6 mg PO BEDTIME PRN PRN Reason: Insomnia Methylprednisolone Sodium Succinate (Methylprednisolone Sod Succ 40 Mg/Ml Vial) 40 mg IVPUSH Q6H [facility] Pharmacy Consult (Consult Rx Perform Med Rec) 1 each MISCELLANE ONCE PRN PRN Reason: Consult order Senna (Sennosides 8.6 Mg Tablet) 17.2 mg PO BEDTIME PRN PRN Reason: Constipation Sodium Chloride (0.9 % Sodium Chloride Flush 3 Ml Syringe) 3 ml IVFLUSH QSHIFT [facility] Home Medications Medication Instructions Recorded Confirmed Last Taken Type albuterol sulfate 90 mcg/actuation 2 puff inhalation QID PRN asthma 10/29/20 08/15/21 Unknown History aerosol inhaler (ProAir HFA) Physical Exam Vital Signs and Narrative: Vital Signs: Last Vital Signs Temp 99.1 F 08/15/21 21:29 Pulse 113 H 08/15/21 21:29 Resp 20 08/15/21 21:29 BP 150/84 H 08/15/21 21:29 Pulse Ox 95 08/15/21 21:29 O2 Del Method 08/15/21 21:29 BMI result Body Mass Index 27.1 Gen: Appears be in no acute distress. Speaks in full sentences. Breathing comfortably on room air. HEENT: NCAT, Moist mucosa. Pulmonary: Coarse breath sounds, occasional expiratory wheezing noted. CVS: Normal S1-S2 Abdomen: BS+, Soft, Nontender Extremities: Warm well perfused Neuro: Alert and awake. Results Labs CBC and Chem 7: 08/16/21 05:52 08/16/21 05:52 Labs: Laboratory Results - last 24 hr 08/15/21 08/15/21 08/15/21 15:09 15:09 15:09 MCV 84.9 MCH 26.9 L MCHC 31.7 RDW 13.4 Plt Count 186 MPV 10.5 Immature Gran % (Auto) 0.4 Neut % (Auto) 68.1 Lymph % (Auto) 21.6 Gray % (Auto) 4.7 Eos % (Auto) 4.7 H Baso % (Auto) 0.5 Lymph # (Auto) 1.8 [place] # (Auto) 0.4 Eos # (Auto) 0.4 Baso # (Auto) 0.0 Abs Immat Gran (auto) 0.03 Absolute Neuts (auto) 5.7 Absolute Nucleated RBC 0.000 Nucleated RBC % (auto) 0.0 VBG pH VBG pCO2 VBG pO2 VBG HCO3 VBG O2 Saturation VBG Base Excess Anion Gap Estim Creat Clear Calc Estimated GFR Random Glucose Calcium Total Bilirubin AST ALT Alkaline Phosphatase Total Protein Albumin COVID-19 (ANGI) Negative COVID-19 Clin Com See Note Influenza Type A (CHELSEY) Negative Influenza Type B (CHELSEY) Negative Influenza A & B Note See Note 08/15/21 08/15/21 15:09 17:29 MCV MCH MCHC RDW Plt Count MPV Immature Gran % (Auto) Neut % (Auto) Lymph % (Auto) [place] % (Auto) Eos % (Auto) Baso % (Auto) Lymph # (Auto) Gray # (Auto) Eos # (Auto) Baso # (Auto) Abs Immat Gran (auto) Absolute Neuts (auto) Absolute Nucleated RBC Nucleated RBC % (auto) VBG pH 7.34 VBG pCO2 41 VBG pO2 45 VBG HCO3 22 VBG O2 Saturation 67.0 VBG Base Excess -2.8 Anion Gap 15 Estim Creat Clear Calc 114.7 Estimated GFR > 60 Random Glucose 118 H Calcium 8.5 D Total Bilirubin 0.2 AST 25 ALT 20 Alkaline Phosphatase 64 Total Protein 7.4 Albumin 4.3 COVID-19 (ANGI) COVID-19 Clin Com Influenza Type A (CHELSEY) Influenza Type B (CHELSEY) Influenza A & B Note Imaging Radiologist's Impressions: Impressions Chest X-Ray 08/15/21 15:20 IMPRESSION: Clear lungs. Assessment and Plan (1) Asthma: Status: Acute Plan 40-year-old female with a past medical history of asthma presents to the hospital with a chief complaint of shortness of breath. Noted to be in a mild acute asthma exacerbation. Admitted for further management. Acute asthma exacerbation: Continue Solu-Medrol IV Nebulizations standing and p.r.n. Azithromycin Cough suppressants Chest x-ray showed no acute findings D-dimer pending DVT prophylaxis: Lovenox Code status: Full code Quality Stroke Does the patient have a stroke diagnosis?: No VTE Prior VTE?: No VTE Risk Level:: Medical - moderate - high VTE Device Contraindication: Treatment Not Indicated VTE Drug Contraindication: N/A - Med Ordered
[2021-08-15] MEDS: Azithromycin 500 MG TABLET PO (23:03)
[2021-08-15] MEDS: Benzonatate 100 MG CAPSULE PO (23:04)
[2021-08-15] MEDS: 0.9 % Sodium Chloride Flush 3 ML SYRINGE IVFLUSH (23:04)
[2021-08-15] MEDS: Enoxaparin Sodium 40 MG/0.4 ML SYRINGE SUBCUT (23:04)
[2021-08-15] MEDS: methylPREDNISolone Sod Succ 40 MG/ML VIAL IVPUSH (23:04)
[2021-08-15 23:47] LABS: D Dimer High Sensitivity < 150 NG/ML
--- NOTE | 2021-08-16 00:07 | PC.NURSE ---
REPORT CALLED TO RODNEY DILLARD ON [facility].
[2021-08-16 00:47] VITALS: BMI 37.8
[2021-08-16] MEDS: Melatonin 3 MG TABLET 6 MG PO (01:02)
[2021-08-16 03:25] VITALS: BP 158/79; PULSE 73; RESP 17; TEMP 36.3; O2SAT 95
[2021-08-16] MEDS: methylPREDNISolone Sod Succ 40 MG/ML VIAL IVPUSH ×2 (04:57→11:11)
[2021-08-16] MEDS: Albuterol/Iprat 2.5/0.5MG 3 ML AMPUL.NEB INHALE ×2 (05:23→12:10)
[2021-08-16 05:24] VITALS: PULSE 95; RESP 18; O2SAT 94
[2021-08-16 06:16] LABS: MANUAL DIFF FLAG NO
[2021-08-16 06:22] LABS: Basophils Percent Auto 0.1 % (0-2); Hematocrit 35.2 % (37.0-47.0); Hemoglobin 11.3 g/dl (12.0-16.0); Imm Gran Abs Auto 0.04 X10*3/uL (0.00-0.03); Imm Gran Pct Auto 0.6 % (0.0-0.4); Lymphocytes Absolute Auto 0.6 X10*3/uL (1.2-4.9); Mean Corpuscular HGB Conc 32.1 g/dl (31.0-35.0); Mean Platelet Volume 11.1 fL (9.4-12.3); Monocytes Absolute Auto 0.1 X10*3/uL (0.1-1.2); Neutrophils Absolute Auto 6.2 x10*3/uL (2.0-8.3); Neutrophils Percent Auto 89.3 % (45-73); Platelet Count 165 X10*3/uL (160-400); Red Blood Count 4.19 X10*6/uL (4.20-5.50); Red Cell Distribution Width 13.4 % (11.0-16.0); White Blood Count 6.9 X10*3/uL (4.8-10.8)
[2021-08-16 06:55] LABS: Anion Gap 11 (12-20); Blood Urea Nitrogen 11 mg/dL (9-16); Calcium 9.4 mg/dL (8.4-10.2); Carbon Dioxide 23 mmol/L (22-29); Chloride 104 mmol/L (96-108); Creatinine Clr Calc Pharmacy 133.6; Estimated Glomerular Filt Rate > 60; Glucose Random 168 mg/dL (60-115); Potassium 3.8 mmol/L (3.3-5.1); Sodium 134 mmol/L (135-145)
[2021-08-16 07:09] VITALS: BP 159/87; PULSE 95; RESP 16; TEMP 36.6; O2SAT 97
[2021-08-16 07:45] VITALS: BP 159/87; PULSE 95; RESP 16; TEMP 36.6; O2SAT 97
[2021-08-16] MEDS: 0.9 % Sodium Chloride Flush 3 ML SYRINGE IVFLUSH ×2 (08:45→11:10)
[2021-08-16] MEDS: Acetaminophen 325 MG TABLET 650 MG PO (09:34)
[2021-08-16] MEDS: Benzonatate 100 MG CAPSULE PO (09:35)
--- NOTE | 2021-08-16 10:36 | PM.DS ---
DS: Providers Provider Date of Service: 08/16/21 Date of admission: 08/15/21 22:10 Date of discharge: 08/16/21 Primary care physician: Unknown Physician DS: Diagnosis Discharge Diagnosis (1) Asthma with exacerbation: Status: Acute DS: Summary Hospital Course Hospital Course: 40-year-old female with known history of asthma presents with an exacerbation which began approximately 3 days before arrival. She was admitted to general medical floor given pulse dose steroids and oral azithromycin. Over the next 24 hours she improved dramatically and is requesting discharge. At this time she is medically acceptable for same to follow-up with her PCP. She will complete a course of prednisone taper as well as azithromycin Time Spent with Patient Time attestation: Total time spent providing and/or coordinating discharge services: Discharge coordination time: Greater than 30 minutes Quality: Safe Use of Opioids Does Pt have an Active Cancer Diagnosis on the Problem List?: No Quality: Stroke Does the patient have a stroke diagnosis?: No Physical Exam Vital Signs: Vital Signs: Last Vital Signs Temp 97.9 F 08/16/21 07:45 Pulse 95 08/16/21 07:45 Resp 16 08/16/21 07:45 BP 159/87 H 08/16/21 07:45 Pulse Ox 97 08/16/21 07:45 O2 Del Method 08/16/21 07:45 BMI result Body Mass Index 37.8 Const: Other: no acute distress. Speaking in full sentences Resp: Other: essentially clear to auscultation bilaterally with scant expiratory wheezes. There is good aeration to bases Cardio: Other: no S4; positive S1-S2; no S3 murmurs rubs or gallops Extrem: Other: no edema bilaterally DS: Data Data Completed and Pending Labs on day of discharge: Laboratory Results - last 24 hr 08/15/21 08/15/21 08/15/21 15:09 15:09 15:09 WBC 8.3 RBC 4.24 Hgb 11.4 L Hct 36.0 L MCV 84.9 MCH 26.9 L MCHC 31.7 RDW 13.4 Plt Count 186 MPV 10.5 Immature Gran % (Auto) 0.4 Neut % (Auto) 68.1 Lymph % (Auto) 21.6 [place] % (Auto) 4.7 Eos % (Auto) 4.7 H Baso % (Auto) 0.5 Lymph # (Auto) 1.8 [place] # (Auto) 0.4 Eos # (Auto) 0.4 Baso # (Auto) 0.0 Abs Immat Gran (auto) 0.03 Absolute Neuts (auto) 5.7 Absolute Nucleated RBC 0.000 Nucleated RBC % (auto) 0.0 D-Dimer High Sensitivty VBG pH VBG pCO2 VBG pO2 VBG HCO3 VBG O2 Saturation VBG Base Excess Sodium Potassium Chloride Carbon Dioxide Anion Gap BUN Creatinine Estim Creat Clear Calc Estimated GFR Random Glucose Calcium Total Bilirubin AST ALT Alkaline Phosphatase Total Protein Albumin COVID-19 (ANGI) Negative COVID-19 Clin Com See Note Influenza Type A (CHELSEY) Negative Influenza Type B (CHELSEY) Negative Influenza A & B Note See Note 08/15/21 08/15/21 08/15/21 15:09 17:29 23:20 WBC RBC Hgb Hct MCV MCH MCHC RDW Plt Count MPV Immature Gran % (Auto) Neut % (Auto) Lymph % (Auto) [place] % (Auto) Eos % (Auto) Baso % (Auto) Lymph # (Auto) [place] # (Auto) Eos # (Auto) Baso # (Auto) Abs Immat Gran (auto) Absolute Neuts (auto) Absolute Nucleated RBC Nucleated RBC % (auto) D-Dimer High Sensitivty < 150 VBG pH 7.34 VBG pCO2 41 VBG pO2 45 VBG HCO3 22 VBG O2 Saturation 67.0 VBG Base Excess -2.8 Sodium 139 Potassium 3.9 Chloride 107 Carbon Dioxide 21 L Anion Gap 15 BUN 11 Creatinine 0.68 Estim Creat Clear Calc 114.7 Estimated GFR > 60 Random Glucose 118 H Calcium 8.5 D Total Bilirubin 0.2 AST 25 ALT 20 Alkaline Phosphatase 64 Total Protein 7.4 Albumin 4.3 COVID-19 (ANGI) COVID-19 Clin Com Influenza Type A (CHELSEY) Influenza Type B (CHELSEY) Influenza A & B Note 08/16/21 08/16/21 05:52 05:52 WBC 6.9 RBC 4.19 L Hgb 11.3 L Hct 35.2 L MCV 84.0 MCH 27.0 MCHC 32.1 RDW 13.4 Plt Count 165 MPV 11.1 Immature Gran % (Auto) 0.6 H Neut % (Auto) 89.3 H Lymph % (Auto) 9.0 L [place] % (Auto) 1.0 L Eos % (Auto) 0.0 Baso % (Auto) 0.1 Lymph # (Auto) 0.6 L [place] # (Auto) 0.1 Eos # (Auto) 0.0 Baso # (Auto) 0.0 Abs Immat Gran (auto) 0.04 H Absolute Neuts (auto) 6.2 Absolute Nucleated RBC 0.000 Nucleated RBC % (auto) 0.0 D-Dimer High Sensitivty VBG pH VBG pCO2 VBG pO2 VBG HCO3 VBG O2 Saturation VBG Base Excess Sodium 134 L Potassium 3.8 Chloride 104 Carbon Dioxide 23 Anion Gap 11 L BUN 11 Creatinine 0.69 Estim Creat Clear Calc 133.6 Estimated GFR > 60 Random Glucose 168 H Calcium 9.4 D Total Bilirubin AST ALT Alkaline Phosphatase Total Protein Albumin COVID-19 (ANGI) COVID-19 Clin Com Influenza Type A (CHELSEY) Influenza Type B (CHELSEY) Influenza A & B Note Discharge Plan Discharge Patient Disposition: Home, Self-Care Discharge Diagnosis: asthma exacerbation Referrals: Physician,Unknown J [Primary Care Provider] - 1 Week Discharge Medications: New ipratropium-albuterol 0.5 mg-3 mg(2.5 mg base)/3 mL Solution For Nebulization 3 ml inhalation Q4H PRN (Reason: Shortness Of Breath/Wheezing) Qty: 270 0RF azithromycin 500 mg Tablet 500 mg PO Q24H Qty: 4 0RF fluticasone propion-salmeterol [Advair Diskus] 250-50 mcg/dose blister with device 1 inh inhalation BID Qty: 60 0RF prednisone 10 mg tablet See Rx Instructions .Route .COMPLEX Qty: 45 0RF Rx Instructions: 10 mg orally; 5 tabs p.o. daily x3 days; 4 tabs p.o. daily x3 days; 3 tabs daily x3 days; 2 tabs daily x3 days; 1 tab daily x3 days albuterol sulfate [Ventolin HFA] 90 mcg/actuation HFA aerosol inhaler 1 inh inhalation Q6H PRN (Reason: shortness of breath or wheezing) Qty: 8.5 0RF Continued albuterol sulfate [ProAir HFA] 90 mcg/actuation HFA aerosol inhaler 2 puff inhalation QID PRN (Reason: asthma) ipratropium-albuterol 0.5 mg-3 mg(2.5 mg base)/3 mL Solution For Nebulization 3 ml inhalation RQ4H PRN (Reason: sob) Qty: 60 0RF fluticasone propion-salmeterol [Advair Diskus] 500-50 mcg/dose blister with device 1 puff inhalation BID Qty: 1 0RF montelukast 10 mg tablet 1 tab PO DAILY Qty: 30 0RF Discharge Orders: Discharge Order (Routine); Ordered 08/16/21 Ordered By: Beltran Arrieta Diet: advance to usual diet Activity on Discharge: As tolerated Stand Alone Forms: Patient Portal Discharge page Care Plan Goals: complete course of prednisone as per taper; complete azithromycin as ordered Health Concerns: utilize nebs 3 times a day as well as Advair twice a day Plan of Treatment: follow-up with PCP 1-2 weeks Assessment: as per discharge summary
[2021-08-16] MEDS: Montelukast Sodium 10 MG TABLET PO (10:57)
--- NOTE | 2021-08-16 11:08 | MHC.CM.PN ---
NURS4 CASE MANAGEMENT NOTE ELECTRONIC MEDICAL RECORD REVIEWED ALONG WITH CASE DISCUSSED WITH STAFF NURSE AND HOSPITALSIT , MET WITH PATIENT SHE LIVES WITH HER FAMILY, SHE IS ACTIVE INDEPENDENT IN ALL ADLS AND MOBILITY WITH OUT ANY DEVICES SHE HAS NO VNA , NO DME SERVICES SHE IS AWARE THAT SHE WILL BE DISCHARGED HOME TODAY DISCHARGE PLAN HOME WITH NO SERVUCUES PCP AT THE [facility] (COULD NOT REMBER
[2021-08-16 11:21] VITALS: BP 158/75; PULSE 70; RESP 16; TEMP 36.4; O2SAT 94
[2021-08-16 12:11] VITALS: PULSE 70; RESP 20; O2SAT 94
== END 2021-08-16 14:43 | disposition home or self-care (01) | DRG 141 ==
LOC: HO.ED 18:38 → HO.EDOVER 22:17 → HO.S3 23:44
PROVIDERS: Physician Assistant; Admitting Provider Hospitalist; Emergency Provider Emergency Medicine; PCP Internal Medicine; Visit Provider Hospitalist
DX: J45.901 Unspecified asthma with (acute) exacerbation (principal); Z20.822 Contact with and (suspected) exposure to COVID-19; Z79.51 Long term (current) use of inhaled steroids; Z88.5 Allergy status to narcotic agent; Z88.6 Allergy status to analgesic agent; Z79.899 Other long term (current) drug therapy
CPT/HCPCS: 36415; 71046; 80048; 80053; 82803; 85025; 85379; 87502; 87635; 94640; 94644; 94645; 96365; 96375; 99218; 99285; J1650; J2920; J2930; J3475

== ENCOUNTER 2022-02-08 11:50 | Emergency (ER) | payer MEDICAID, SELFPAY ==
--- NOTE | ~2022-02-08 | XR_ITS ---
EXAMINATION: XR CHEST CLINICAL INFORMATION: Shortness of breath COMPARISON: 08/15/2021 TECHNIQUE: 2 views of the chest were obtained. FINDINGS: Lungs clear. No pleural effusions. Heart and pulmonary vessels normal. XR/XR chest 2V IMPRESSION: Unremarkable examination.
[2022-02-08 12:10] VITALS: BP 140/86; PULSE 110; RESP 18; TEMP 36.9; O2SAT 92; BMI 34.9
--- NOTE | 2022-02-08 12:12 | ED.ASTHMA ---
HPI - Asthma General Chief Complaint: Asthma <NA Richmond - Last Filed: 02/08/22 12:15> Stated Complaint: Unresponsive <NA Richmond - Last Filed: 02/08/22 12:15> Time Seen by Provider: 02/08/22 12:28 <NA Richmond - Last Filed: 02/08/22 12:15> Source: patient <NA Richmond - Last Filed: 02/08/22 12:15> Mode of arrival: wheelchair <NA Richmond - Last Filed: 02/08/22 12:15> Limitations: no limitations <NA Richmond - Last Filed: 02/08/22 12:15> History of Present Illness HPI Narrative: 41-year-old female without significant past medical history presents with worsening shortness of breath since yesterday, out of her albuterol, but denies any sore throat/cough/fever/chills and denies any GI or symptoms. <Anel Harrison MD - Last Filed: 02/08/22 14:25> Related Data Home Medications: Home Medications Medication Instructions Recorded Confirmed albuterol sulfate 90 mcg/actuation 2 puff inhalation QID PRN asthma 10/29/20 08/15/21 aerosol inhaler (ProAir HFA) Previous Rx's Medication Instructions Recorded fluticasone 500 mcg-salmeterol 50 1 puff inhalation BID #1 ea 10/30/20 mcg/dose blistr powdr for inhalation (Advair Diskus) ipratropium 0.5 mg-albuterol 3 mg 3 ml inhalation RQ4H PRN sob #60 mL 10/30/20 (2.5 mg base)/3 mL nebulization soln montelukast 10 mg tablet 1 tab PO DAILY #30 tabs 10/30/20 albuterol sulfate 90 mcg/actuation 1 inh inhalation Q6H PRN shortness 08/16/21 aerosol inhaler (Ventolin HFA) of breath or wheezing #8.5 grams azithromycin 500 mg tablet 500 mg PO Q24H #4 tabs 08/16/21 fluticasone 250 mcg-salmeterol 50 1 inh inhalation BID #60 caplets 08/16/21 mcg/dose blistr powdr for inhalation (Advair Diskus) ipratropium 0.5 mg-albuterol 3 mg 3 ml inhalation Q4H PRN Shortness 08/16/21 (2.5 mg base)/3 mL nebulization Of Breath/Wheezing #270 mL soln prednisone 10 mg tablet See Rx Instructions .Route 08/16/21 .COMPLEX #45 tabs oseltamivir 75 mg capsule (Tamiflu) 75 mg PO Q12H 5 days #10 caps 02/08/22 prednisone 50 mg tablet 50 mg PO DAILY 4 days #4 tabs 02/08/22 <NA Richmond - Last Filed: 02/08/22 12:15> Allergies/Adverse Reactions: Allergies Allergy/AdvReac Type Severity Reaction Status Date / Time ibuprofen [From MOTRIN] Allergy Unknown SWELLING Verified 04/25/20 13:56 tramadol [TRAMADOL] Allergy Unknown SWELLING Verified 04/25/20 13:56 <NA Richmond - Last Filed: 02/08/22 12:15> Review of Systems Review of Systems: Pertinent positives and negatives as stated in HPI 10 point review of systems otherwise negative. <Anel Harrison MD - Last Filed: 02/08/22 14:25> [facility] Past Medical History Source: nursing notes reviewed <Anel Harrison MD - Last Filed: 02/08/22 14:25> Medical History: Medical History Asthma delivery delivered COPD (chronic obstructive pulmonary disease) <NA Richmond - Last Filed: 02/08/22 12:15> Social History Social History: Social History Household Members: Children Housing: Apartment Alcohol intake: never Patient Tobacco Use Status: Former Tobacco user Smoked in Last 30 Days: No Substance Use Type: Marijuana Substance Use Frequency: Occasionally Advance Directives: No Advance Directives Information Provided: Yes service: No Current occupational status: unemployed <NA Richmond - Last Filed: 02/08/22 12:15> Physical Exam Vital Signs: Vital Signs: Last Vital Signs Temp 98.4 F 02/08/22 12:10 Pulse 96 02/08/22 14:13 Resp 18 02/08/22 14:13 BP 140/86 H 02/08/22 12:10 Pulse Ox 92 02/08/22 12:10 O2 Del Method 02/08/22 12:10 BMI result Body Mass Index 34.9 <NA Richmond - Last Filed: 02/08/22 12:15> Vital Signs: Last Vital Signs Temp 98.4 F 02/08/22 12:10 Pulse 96 02/08/22 14:13 Resp 18 02/08/22 14:13 BP 140/86 H 02/08/22 12:10 Pulse Ox 92 02/08/22 12:10 O2 Del Method 02/08/22 12:10 BMI result Body Mass Index 34.9 VITAL SIGNS: Reviewed. GENERAL: Well developed, well nourished, in no acute distress. HEAD: Normocephalic/atraumatic EYES: PERRLA, EOMI EARS: Ext canals without abnormality, TMs non-bulging and non-erythematous NOSE: Nares patent bilateral OROPHARYNX: no oral lesions noted, posterior pharynx clear and non-erythematous without noted tonsillar enlargement/erythema/exudates NECK: Supple, no adenopathy LUNGS: Decreased breath sounds with expiratory wheeze SpO2<92> on oxygen CARDIOVASCULAR: Regular rate and rhythm without noted murmurs ABDOMEN: Soft, non-tender, non-distended with bowel sounds. No rigidity. No guarding. No palpable masses or hernias noted MUSCULOSKELETAL: No tenderness, deformities, or effusions noted on gross inspection. EXTREMITIES: No cyanosis, clubbing or edema. SKIN: Inspection of the skin reveals no rashes, NEUROLOGIC: Alert and oriented x 4. Strength and sensation to light touch were grossly intact x 4. <Anel Harrison MD - Last Filed: 02/08/22 14:25> Course Course Course Narrative: RME performed by Deyanira Villalobos PA-C. Patient is a 41 year old female with shortness of breath. Patient has a history of asthma. Patient has diffuse wheezing and is 90% on room air. CBC, CMP, Mag, Solu-medrol, duoneb, COVID/Influenza/RSV ordered. Patient walked into the department. Charge nurse alerted of patient acuity. <NA Richmond Last Filed: 02/08/22 12:15> RME performed by Deyanira Villalobos, PA-C. Patient is a 41 year old female with shortness of breath. Patient has a history of asthma. Patient has diffuse wheezing and is 90% on room air. CBC, CMP, Mag, Solu-medrol, duoneb, COVID/Influenza/RSV ordered. Patient walked into the department. Charge nurse alerted of patient acuity. Review of all investigations consistent with acute asthma exacerbation, will evaluate viral testing, patient will receive albuterol, steroids, magnesium and reassess for appropriateness for discharge. Review after all investigations and treatments and patient feels much better but is hypoxic to 89%. She is also noted to be influenza positive and received initial treatment here in the emergency room. Although patient has been informed of her poor oxygenation and her obvious continued tachypnea she is adamant that she will leave because she needs take care of her grandkids. It has been explained to her that she could collapse and she states that she does not care that if she starts to feel badly she will return. She has also been made aware that she is influenza A positive. She will sign discharge against medical advice. <Anel Harrison MD - Last Filed: 02/08/22 14:25> Medications Administered Discontinued Medications Generic Name Dose Route Start Last Admin Trade Name Freq PRN Reason Stop Dose Admin Albuterol Sulfate 7.5 mg/ 10 mg 02/08/22 12:34 02/08/22 12:40 Albuterol Sulfate 2.5 mg INHALE 02/08/22 12:35 10 mg ONCE ONE Administration Albuterol Sulfate 7.5 mg/ 10 mg 02/08/22 12:34 02/08/22 12:45 Albuterol Sulfate 2.5 mg INHALE 02/08/22 12:35 10 mg ONCE ONE Administration Albuterol Sulfate 2 puff 02/08/22 14:00 02/08/22 14:08 Albuterol Sulfate 90 Mcg 8 Gm Inhaler INHALE 02/08/22 14:01 2 puff ONCE ONE Administration Albuterol Sulfate 7.5 mg/ 0 mg 02/08/22 12:13 02/08/22 12:24 Albuterol/Ipratropium 3 ml INHALE 02/08/22 12:14 2.5 each ONCE ONE Administration Magnesium Sulfate/Dextrose 1 gm in 100 mls @ 100 mls/hr 02/08/22 12:13 02/08/22 13:56 Magnesium Sulfate/D5w IV 02/08/22 13:12 Infused ONCE ONE Infusion Methylprednisolone Sodium Succinate 125 mg 02/08/22 12:33 02/08/22 12:42 Methylprednisolone Sod Succ 125 Mg/2 Ml Vial IVPUSH 02/08/22 12:34 125 mg ONCE ONE Administration <NA Richmond - Last Filed: 02/08/22 12:15> Medications Administered Discontinued Medications Generic Name Dose Route Start Last Admin Trade Name Cheryl VILLANUEVA Reason Stop Dose Admin Albuterol Sulfate 7.5 mg/ 10 mg 02/08/22 12:34 02/08/22 12:40 Albuterol Sulfate 2.5 mg INHALE 02/08/22 12:35 10 mg ONCE ONE Administration Albuterol Sulfate 7.5 mg/ 10 mg 02/08/22 12:34 02/08/22 12:45 Albuterol Sulfate 2.5 mg INHALE 02/08/22 12:35 10 mg ONCE ONE Administration Albuterol Sulfate 2 puff 02/08/22 14:00 02/08/22 14:08 Albuterol Sulfate 90 Mcg 8 Gm Inhaler INHALE 02/08/22 14:01 2 puff ONCE ONE Administration Albuterol Sulfate 7.5 mg/ 0 mg 02/08/22 12:13 02/08/22 12:24 Albuterol/Ipratropium 3 ml INHALE 02/08/22 12:14 2.5 each ONCE ONE Administration Magnesium Sulfate/Dextrose 1 gm in 100 mls @ 100 mls/hr 02/08/22 12:13 02/08/22 13:56 Magnesium Sulfate/D5w IV 02/08/22 13:12 Infused ONCE ONE Infusion Methylprednisolone Sodium Succinate 125 mg 02/08/22 12:33 02/08/22 12:42 Methylprednisolone Sod Succ 125 Mg/2 Ml Vial IVPUSH 02/08/22 12:34 125 mg ONCE ONE Administration <Anel Harrison MD - Last Filed: 02/08/22 14:25> MDM - Asthma Lab Data Result diagrams: : 02/08/22 12:36 02/08/22 12:36 <NA Richmond - Last Filed: 02/08/22 12:15> Labs: Lab Results 02/08/22 02/08/22 02/08/22 Range/Units 12:35 12:36 12:36 WBC 7.8 (4.8-10.8) X10*3/uL RBC 4.54 (4.20-5.50) X10*6/uL Hgb 12.2 (12.0-16.0) g/dl Hct 38.9 (37.0-47.0) % MCV 85.7 (80.0-98.0) fL MCH 26.9 L (27.0-33.0) pg MCHC 31.4 (31.0-35.0) g/dl RDW 15.9 (11.0-16.0) % Plt Count 191 (160-400) X10*3/uL MPV 10.8 (9.4-12.3) fL Immature Gran % (Auto) 0.5 H (0.0-0.4) % Neut % (Auto) 77.7 H (45-73) % Lymph % (Auto) 10.5 L (20-40) % [place] % (Auto) 9.1 (2-11) % Eos % (Auto) 1.8 (0-4) % Baso % (Auto) 0.4 (0-2) % Lymph # (Auto) 0.8 L (1.2-4.9) X10*3/uL [place] # (Auto) 0.7 (0.1-1.2) X10*3/uL Eos # (Auto) 0.1 (0.0-0.4) X10*3/uL Baso # (Auto) 0.0 (0.0-0.2) X10*3/uL Abs Immat Gran (auto) 0.04 H (0.00-0.03) X10*3/uL Absolute Neuts (auto) 6.0 (2.0-8.3) x10*3/uL Absolute Nucleated RBC 0.000 (0.0-0.012) X10*3/uL Nucleated RBC % (auto) 0.0 (0.0-0.2) /100WBC Sodium 140 (135-145) mmol/L Potassium 4.0 (3.3-5.1) mmol/L Chloride 105 (96-108) mmol/L Carbon Dioxide 20 L (22-29) mmol/L Anion Gap 19 (12-20) BUN 11 (9-16) mg/dL Creatinine 0.79 (0.5-1.4) mg/dL Estim Creat Clear Calc 118.4 Estimated GFR > 60 Random Glucose 113 (60-115) mg/dL Calcium 8.8 D (8.4-10.2) mg/dL Magnesium 2.4 (1.6-2.6) mg/dL AST 44 H D (5-31) U/L ALT 42 H (0-31) U/L Alkaline Phosphatase 84 D (39-117) U/L Total Protein 7.9 (6.5-8.0) g/dL Albumin 4.8 (3.5-5.0) g/dL Influenza Type A (PCR) POSITIVE A (Negative) Influenza Type B (PCR) NEGATIVE (Negative) RSV RNA Qual (PCR) NEGATIVE (Negative) SARS-CoV-2 RNA (RT-PCR) NEGATIVE (Negative) <NA Richmond - Last Filed: 02/08/22 12:15> Lab Results 02/08/22 02/08/22 02/08/22 Range/Units 12:35 12:36 12:36 WBC 7.8 (4.8-10.8) X10*3/uL RBC 4.54 (4.20-5.50) X10*6/uL Hgb 12.2 (12.0-16.0) g/dl Hct 38.9 (37.0-47.0) % MCV 85.7 (80.0-98.0) fL MCH 26.9 L (27.0-33.0) pg MCHC 31.4 (31.0-35.0) g/dl RDW 15.9 (11.0-16.0) % Plt Count 191 (160-400) X10*3/uL MPV 10.8 (9.4-12.3) fL Immature Gran % (Auto) 0.5 H (0.0-0.4) % Neut % (Auto) 77.7 H (45-73) % Lymph % (Auto) 10.5 L (20-40) % [place] % (Auto) 9.1 (2-11) % Eos % (Auto) 1.8 (0-4) % Baso % (Auto) 0.4 (0-2) % Lymph # (Auto) 0.8 L (1.2-4.9) X10*3/uL [place] # (Auto) 0.7 (0.1-1.2) X10*3/uL Eos # (Auto) 0.1 (0.0-0.4) X10*3/uL Baso # (Auto) 0.0 (0.0-0.2) X10*3/uL Abs Immat Gran (auto) 0.04 H (0.00-0.03) X10*3/uL Absolute Neuts (auto) 6.0 (2.0-8.3) x10*3/uL Absolute Nucleated RBC 0.000 (0.0-0.012) X10*3/uL Nucleated RBC % (auto) 0.0 (0.0-0.2) /100WBC Sodium 140 (135-145) mmol/L Potassium 4.0 (3.3-5.1) mmol/L Chloride 105 (96-108) mmol/L Carbon Dioxide 20 L (22-29) mmol/L Anion Gap 19 (12-20) BUN 11 (9-16) mg/dL Creatinine 0.79 (0.5-1.4) mg/dL Estim Creat Clear Calc 118.4 Estimated GFR > 60 Random Glucose 113 (60-115) mg/dL Calcium 8.8 D (8.4-10.2) mg/dL Magnesium 2.4 (1.6-2.6) mg/dL AST 44 H D (5-31) U/L ALT 42 H (0-31) U/L Alkaline Phosphatase 84 D (39-117) U/L Total Protein 7.9 (6.5-8.0) g/dL Albumin 4.8 (3.5-5.0) g/dL Influenza Type A (PCR) POSITIVE A (Negative) Influenza Type B (PCR) NEGATIVE (Negative) RSV RNA Qual (PCR) NEGATIVE (Negative) SARS-CoV-2 RNA (RT-PCR) NEGATIVE (Negative) <Anel Harrison MD - Last Filed: 02/08/22 14:25> ECG Data Attestation: I personally reviewed and interpreted this ECG as follows: <Anel Harrison MD - Last Filed: 02/08/22 14:25> Prior ECG tracings: available for review <Anel Harrison MD - Last Filed: 02/08/22 14:25> Interpretation: Sinus tachycardia (patient currently receiving albuterol treatment), HR-124, no STEMI, [place]/QRS/QTC are within normal limits. <Anel Harrison MD - Last Filed: 02/08/22 14:25> Critical Care Time Critical Care Time Critical Care Time: Yes <Anel Harrison MD - Last Filed: 02/08/22 14:25> Total Critical Care Time: 30 <Anel Harrison MD - Last Filed: 02/08/22 14:25> Attestation: I personally attest to this time spent taking care of the patient. <Anel Harrison MD - Last Filed: 02/08/22 14:25> Discharge Plan Discharge Clinical Impression: Asthma with acute exacerbation, Viral syndrome, Influenza A <NA Richmond - Last Filed: 02/08/22 12:15> Patient Disposition: Left Against Medical Advice <NA Richmond - Last Filed: 02/08/22 12:15> Instructions: Asthma (ED), Influenza (ED), Viral Syndrome (ED) <NA Richmond - Last Filed: 02/08/22 12:15> Additional Instructions: 1. Complete the entire course of Tamiflu for your influenza positivity. 2. Complete the course of prednisone. 3. Follow-up with your primary care provider next 1-2 days for re-evaluation further outpatient management. Return to the ER for worsening symptoms. <NA Richmond - Last Filed: 02/08/22 12:15> Prescriptions: New prednisone 50 mg tablet 50 mg PO DAILY 4 Days Qty: 4 0RF oseltamivir [Tamiflu] 75 mg capsule 75 mg PO Q12H 5 Days Qty: 10 0RF No Action albuterol sulfate [ProAir HFA] 90 mcg/actuation HFA aerosol inhaler 2 puff inhalation QID PRN (Reason: asthma) ipratropium-albuterol 0.5 mg-3 mg(2.5 mg base)/3 mL Solution For Nebulization 3 ml inhalation RQ4H PRN (Reason: sob) Qty: 60 0RF fluticasone propion-salmeterol [Advair Diskus] 500-50 mcg/dose blister with device 1 puff inhalation BID Qty: 1 0RF montelukast 10 mg tablet 1 tab PO DAILY Qty: 30 0RF ipratropium-albuterol 0.5 mg-3 mg(2.5 mg base)/3 mL Solution For Nebulization 3 ml inhalation Q4H PRN (Reason: Shortness Of Breath/Wheezing) Qty: 270 0RF azithromycin 500 mg Tablet 500 mg PO Q24H Qty: 4 0RF fluticasone propion-salmeterol [Advair Diskus] 250-50 mcg/dose blister with device 1 inh inhalation BID Qty: 60 0RF prednisone 10 mg tablet See Rx Instructions .Route .COMPLEX Qty: 45 0RF Rx Instructions: 10 mg orally; 5 tabs p.o. daily x3 days; 4 tabs p.o. daily x3 days; 3 tabs daily x3 days; 2 tabs daily x3 days; 1 tab daily x3 days albuterol sulfate [Ventolin HFA] 90 mcg/actuation HFA aerosol inhaler 1 inh inhalation Q6H PRN (Reason: shortness of breath or wheezing) Qty: 8.5 0RF <NA Richmond - Last Filed: 02/08/22 12:15> Referrals: Geovany Landaverde MD [Primary Care Provider] - <NA Richmond - Last Filed: 02/08/22 12:15> Stand Alone Forms: Against Medical Advice <NA Richmond - Last Filed: 02/08/22 12:15>
--- NOTE | 2022-02-08 12:13 | ECG_ITS ---
Test Reason : DIFFICULTY BREATHING Blood Pressure : / mmHG Vent. Rate : 124 BPM Atrial Rate : 124 BPM P-R Int : 138 ms QRS Dur : 080 ms QT Int : 320 ms P-R-T Axes : 054 067 003 degrees QTc Int : 459 ms Sinus tachycardia Possible Left atrial enlargement Borderline ECG When compared with ECG of 25-SEP-2019 00:46, No significant change was found Referred By: Deyanira Villalobos Electronically Signed By:Satinder García
[2022-02-08] MEDS: Albuterol Sulfate 7.5 MG, Albuterol/Iprat 2.5/0.5MG 3 ML 3 ML INHALE (12:24)
[2022-02-08 12:28] VITALS: PULSE 119; RESP 20; O2SAT 90
[2022-02-08 12:39] LABS: MANUAL DIFF FLAG NO
[2022-02-08] MEDS: Albuterol Sulfate 7.5 MG, Albuterol Sulfate (0.083%) 2.5 MG 10 MG INHALE ×2 (12:40→12:45)
[2022-02-08 12:41] VITALS: PULSE 114; RESP 18; O2SAT 99
[2022-02-08 12:42] LABS: Basophils Percent Auto 0.4 % (0-2); Eosinophils Absolute Auto 0.1 X10*3/uL (0.0-0.4); Eosinophils Percent Auto 1.8 % (0-4); Hematocrit 38.9 % (37.0-47.0); Hemoglobin 12.2 g/dl (12.0-16.0); Imm Gran Abs Auto 0.04 X10*3/uL (0.00-0.03); Imm Gran Pct Auto 0.5 % (0.0-0.4); Lymphocytes Absolute Auto 0.8 X10*3/uL (1.2-4.9); Lymphocytes Percent Auto 10.5 % (20-40); Mean Corpuscular HGB Conc 31.4 g/dl (31.0-35.0); Mean Corpuscular Hemoglobin 26.9 pg (27.0-33.0); Mean Corpuscular Volume 85.7 fL (80.0-98.0); Mean Platelet Volume 10.8 fL (9.4-12.3); Monocytes Absolute Auto 0.7 X10*3/uL (0.1-1.2); Monocytes Percent Auto 9.1 % (2-11); Neutrophils Percent Auto 77.7 % (45-73); Platelet Count 191 X10*3/uL (160-400); Red Blood Count 4.54 X10*6/uL (4.20-5.50); Red Cell Distribution Width 15.9 % (11.0-16.0); White Blood Count 7.8 X10*3/uL (4.8-10.8)
[2022-02-08] MEDS: methylPREDNISolone Sod Succ 125 MG/2 ML VIAL IVPUSH (12:42)
[2022-02-08] MEDS: Magnesium Sulfate/D5W 1 GM/100 ML PIGGYBACK IV (12:43)
[2022-02-08 13:25] LABS: Influenza A PCR POSITIVE (Negative); Influenza B PCR NEGATIVE (Negative); Resp Syncy Virus RNA Qual PCR NEGATIVE (Negative); SARS COV2 PCR INHOUSE NEGATIVE (Negative)
[2022-02-08 13:39] LABS: Alanine Aminotransferase 42 U/L (0-31); Albumin Level 4.8 g/dL (3.5-5.0); Alkaline Phosphatase 84 U/L (39-117); Anion Gap 19 (12-20); Aspartate Amino Transferase 44 U/L (5-31); Blood Urea Nitrogen 11 mg/dL (9-16); Calcium 8.8 mg/dL (8.4-10.2); Carbon Dioxide 20 mmol/L (22-29); Chloride 105 mmol/L (96-108); Creatinine Clr Calc Pharmacy 118.4; Estimated Glomerular Filt Rate > 60; Glucose Random 113 mg/dL (60-115); Magnesium 2.4 mg/dL (1.6-2.6); Sodium 140 mmol/L (135-145); Total Protein 7.9 g/dL (6.5-8.0)
--- NOTE | 2022-02-08 14:07 | PC.NURSE ---
pt with low oxygen 89 percent, MD aware and 2LNC started.
[2022-02-08] MEDS: Albuterol Sulfate 90 MCG 8 GM INHALER 2 PUFF INHALE (14:08)
[2022-02-08 14:13] VITALS: PULSE 96; RESP 18; O2SAT 89
[2022-02-08 14:20] LABS: Bilirubin Total 0.2 mg/dL (0.0-1.0)
== END 2022-02-08 14:41 | disposition left against medical advice (07) ==
PROVIDERS: Physician Assistant Medical; Emergency Provider Student in an Organized Health Care Education/Training Program; PCP Internal Medicine
DX: J10.1 Influenza due to other identified influenza virus with other respiratory manifestations (principal); J45.901 Unspecified asthma with (acute) exacerbation; B34.9 Viral infection, unspecified; R06.02 Shortness of breath; Z20.822 Contact with and (suspected) exposure to COVID-19; Z79.899 Other long term (current) drug therapy
CPT/HCPCS: 0241U; 71046; 80053; 83735; 85025; 93005; 94640; 96365; 96376; 99284; 99285; J2930; J3475

== ENCOUNTER 2022-02-09 15:55 | Inpatient (IN) | payer MEDICAID, SELFPAY ==
[2022-02-09] VITALS (8 sets, daily range): BP systolic 120–165; BP diastolic 71–100; PULSE 104–124; RESP 17–22; TEMP 36.6–37.2; O2SAT 95–99; BMI 34.0
--- NOTE | 2022-02-09 | ECG_ITS ---
Test Reason : CHEST PAIN Blood Pressure : / mmHG Vent. Rate : 111 BPM Atrial Rate : 111 BPM P-R Int : 134 ms QRS Dur : 086 ms QT Int : 346 ms P-R-T Axes : 048 066 020 degrees QTc Int : 470 ms Sinus tachycardia Otherwise normal ECG When compared with ECG of 09-FEB-2022 17:02, No significant change was found Referred By: Damon Reilly Electronically Signed By:Satinder García
--- NOTE | ~2022-02-09 | XR_ITS ---
EXAMINATION: XR chest 1V CLINICAL INFORMATION: Reason for Exam sob COMPARISON: Chest radiograph 02/08/2022 TECHNIQUE: One view of the chest FINDINGS: Clear lungs. No pneumothorax or pleural effusion. Unchanged cardiomediastinal silhouette. XR/XR chest 1V IMPRESSION: * Clear lungs.
--- NOTE | ~2022-02-09 | XR_ITS ---
EXAMINATION: XR CHEST CLINICAL INFORMATION: Dyspnea. COMPARISON: 02/09/2022 and 02/08/2022 chest radiographs. TECHNIQUE: Frontal view of the chest was obtained. FINDINGS: There is been interval development of nodular opacities in the right lower lung as well as in the left mid upper lung. The heart and mediastinal structures are unremarkable. XR/XR chest 1V IMPRESSION: Interval development of bilateral nodular opacities most consistent with infiltrates. These were not seen previously. Follow-up chest radiograph on termination treatment for pneumonia is recommended to assess for resolution.
--- NOTE | 2022-02-09 16:41 | ECG_ITS ---
Test Reason : sob Blood Pressure : / mmHG Vent. Rate : 105 BPM Atrial Rate : 105 BPM P-R Int : 128 ms QRS Dur : 090 ms QT Int : 348 ms P-R-T Axes : 049 066 020 degrees QTc Int : 459 ms Sinus tachycardia Otherwise normal ECG When compared with ECG of 08-FEB-2022 12:45, No significant change was found Referred By: Shira Anthony Electronically Signed By:Satinder García
--- NOTE | 2022-02-09 16:45 | ED_ITS ---
HPI - SOB/Dyspnea General Chief Complaint: Dyspnea Stated Complaint: SOB,WHEEZE ALL KENDRICK History of Present Illness HPI Narrative: Patient is 41 years old positive coughing congestion upper respiratory symptoms. Positive generalized malaise. Patient tested positive for influenza a ye sterday. Positive weakness. Patient claims the coughing congestion upper respiratory symptoms been ongoing for about a week. Patient denies smoking history positive history of asthma. Never been hospitalized. Patient has signed out against medical advice yesterday. She is from home. Related Data Home Medications Medication Instructions Recorded Confirmed albuterol sulfate 90 mcg/actuation 2 puff inhalation QID PRN asthma 10/29/20 08/15/21 aerosol inhaler (ProAir HFA) Previous Rx's Medication Instructions Recorded fluticasone 500 mcg-salmeterol 50 1 puff inhalation BID #1 ea 10/30/20 mcg/dose blistr powdr for inhalation (Advair Diskus) ipratropium 0.5 mg-albuterol 3 mg 3 ml inhalation RQ4H PRN sob #60 mL 10/30/20 (2.5 mg base)/3 mL nebulization soln montelukast 10 mg tablet 1 tab PO DAILY #30 tabs 10/30/20 albuterol sulfate 90 mcg/actuation 1 inh inhalation Q6H PRN shortness 08/16/21 aerosol inhaler (Ventolin HFA) of breath or wheezing #8.5 grams azithromycin 500 mg tablet 500 mg PO Q24H #4 tabs 08/16/21 fluticasone 250 mcg-salmeterol 50 1 inh inhalation BID #60 caplets 08/16/21 mcg/dose blistr powdr for inhalation (Advair Diskus) ipratropium 0.5 mg-albuterol 3 mg 3 ml inhalation Q4H PRN Shortness 08/16/21 (2.5 mg base)/3 mL nebulization Of Breath/Wheezing #270 mL soln prednisone 10 mg tablet See Rx Instructions .Route 08/16/21 .COMPLEX #45 tabs oseltamivir 75 mg capsule (Tamiflu) 75 mg PO Q12H 5 days #10 caps 02/08/22 prednisone 50 mg tablet 50 mg PO DAILY 4 days #4 tabs 02/08/22 Allergies Allergy/AdvReac Type Severity Reaction Status Date / Time ibuprofen [From MOTRIN] Allergy Unknown SWELLING Verified 04/25/20 13:56 tramadol [TRAMADOL] Allergy Unknown SWELLING Verified 04/25/20 13:56 Review of Systems Review of Systems: Positive coughing congestion upper respiratory symptoms Yes all other systems are reviewed and are negative [facility] Past Medical History Attestation statement: The following information was validated with the patient. Medical History Asthma delivery delivered COPD (chronic obstructive pulmonary disease) Social History Social History Household Members: Children Housing: Apartment Alcohol intake: current Alcohol intake frequency: holidays/special occasions only Alcohol type: beer Patient Tobacco Use Status: Former Tobacco user Smoked in Last 30 Days: No Use of substances other than those prescribed or required for medical reasons: No Substance Use Type: Marijuana Advance Directives: No Advance Directives Information Provided: Yes Patient : No service: No Current occupational status: unemployed Physical Exam Vital Signs: Vital Signs: Last Vital Signs Temp 98.3 F 02/09/22 20:27 Pulse 116 H 02/09/22 20:27 Resp 17 02/09/22 20:27 BP 165/96 H 02/09/22 20:27 Pulse Ox 99 02/09/22 20:27 O2 Del Method 02/09/22 20:27 O2 Flow Rate 1 02/09/22 20:27 BMI result Body Mass Index 34.0 Appearance: Alert. Oriented X3. No acute distress. Eyes: Pupils equal, round and reactive to light. ENT: Pharynx normal. Neck: Normal inspection. Neck supple. No lymph nodes noted. No crepitus CVS: Normal heart rate and rhythm. Pulses normal. Normal S1 and S2 Respiratory: Positive wheezing bilaterally. Abdomen: Soft and nontender. No rigidity. No distention. good BS x4 Skin: Skin warm and dry. Normal skin color. Normal skin turgor. Extremities: No lower extremity edema. Neurovascular intact to all extremities. No Lacerations. No Rash Neuro: Oriented X 3. No motor deficit. No sensory deficit. Moving all extermities. No slurred speech Medications Administered Discontinued Medications Generic Name Dose Route Start Last Admin Trade Name Freq PRN Reason Stop Dose Admin Acetaminophen/Codeine Phosphate 5 ml 02/09/22 19:48 02/09/22 20:10 Acetaminop/Codeine 120/12/5 Ml 5 Ml Solution PO 02/09/22 19:49 Not Given ONCE ONE Albuterol Sulfate 2.5 mg 02/09/22 16:41 02/09/22 17:03 Albuterol Sulfate (0.083%) 2.5 Mg/3 Ml Vial.Neb INHALE 02/09/22 16:42 2.5 mg ONCE ONE Administration Albuterol/Ipratropium 3 ml 02/09/22 16:41 02/09/22 17:03 Albuterol/Iprat 2.5/0.5mg 3 Ml Ampul.Neb INHALE 02/09/22 16:42 3 ml ONCE ONE Administration Benzonatate 100 mg 02/09/22 19:57 02/09/22 20:14 Benzonatate 100 Mg Capsule PO 02/09/22 19:58 100 mg ONCE ONE Administration Methylprednisolone Sodium Succinate 125 mg 02/09/22 16:41 02/09/22 17:32 Methylprednisolone Sod Succ 125 Mg/2 Ml Vial IVPUSH 02/09/22 16:42 125 mg ONCE ONE Administration MDM - SOB/Dyspnea MDM Narrative Medical decision making narrative: Patient given multiple neb treatments steroids. Symptomatic Park improved slightly. Continue to be hypoxic when she ambulates. Will admit patient for further evaluation. Patient's case discussed with hospitalist team. Differential Diagnosis Differential diagnosis: Likely acute exacerbation of chronic obstructive airways disease and asthma with exacerbation Medical Records Attestation: I reviewed the patient's medical records. Lab Data Attestation: I reviewed the patient's lab results. Result diagrams: 02/09/22 16:56 02/09/22 16:56 Labs: Lab Results 02/09/22 02/09/22 Range/Units 16:56 16:56 WBC 8.6 (4.8-10.8) X10*3/uL RBC 4.57 (4.20-5.50) X10*6/uL Hgb 12.3 (12.0-16.0) g/dl Hct 37.8 (37.0-47.0) % MCV 82.7 (80.0-98.0) fL MCH 26.9 L (27.0-33.0) pg MCHC 32.5 (31.0-35.0) g/dl RDW 15.8 (11.0-16.0) % Plt Count 205 (160-400) X10*3/uL MPV 11.5 (9.4-12.3) fL Immature Gran % (Auto) 0.5 H (0.0-0.4) % Neut % (Auto) 88.3 H (45-73) % Lymph % (Auto) 6.4 L (20-40) % [place] % (Auto) 4.8 (2-11) % Eos % (Auto) 0.0 (0-4) % Baso % (Auto) 0.0 (0-2) % Lymph # (Auto) 0.6 L (1.2-4.9) X10*3/uL [place] # (Auto) 0.4 (0.1-1.2) X10*3/uL Eos # (Auto) 0.0 (0.0-0.4) X10*3/uL Baso # (Auto) 0.0 (0.0-0.2) X10*3/uL Abs Immat Gran (auto) 0.04 H (0.00-0.03) X10*3/uL Absolute Neuts (auto) 7.6 (2.0-8.3) x10*3/uL Absolute Nucleated RBC 0.000 (0.0-0.012) X10*3/uL Nucleated RBC % (auto) 0.0 (0.0-0.2) /100WBC Sodium 133 L (135-145) mmol/L Potassium 3.6 (3.3-5.1) mmol/L Chloride 101 (96-108) mmol/L Carbon Dioxide 18 L (22-29) mmol/L Anion Gap 18 (12-20) BUN 9 (9-16) mg/dL Creatinine 0.77 (0.5-1.4) mg/dL Estim Creat Clear Calc 123.6 Estimated GFR > 60 Random Glucose 163 H (60-115) mg/dL Calcium 9.4 D (8.4-10.2) mg/dL Beta HCG, Quant < 2 mIU/mL Ethyl Alcohol 164 mg/dL Critical Care Time Critical Care Time Critical Care Time: Yes Total Critical Care Time: 40 Attestation: I have personally provided 40 minutes of critical care time exclusive of time spent on separately billable procedures. Time includes review of lab data, radiology results, discussion with consultants, and monitoring for potential decompensation. Interventions were performed as documented above Discharge Plan Discharge Clinical Impression: Influenza Patient Disposition: Admitted As Inpatient
[2022-02-09 17:03] LABS: Hematocrit 37.8 % (37.0-47.0); Hemoglobin 12.3 g/dl (12.0-16.0); Imm Gran Abs Auto 0.04 X10*3/uL (0.00-0.03); Imm Gran Pct Auto 0.5 % (0.0-0.4); Lymphocytes Absolute Auto 0.6 X10*3/uL (1.2-4.9); Lymphocytes Percent Auto 6.4 % (20-40); MANUAL DIFF FLAG NO; Mean Corpuscular HGB Conc 32.5 g/dl (31.0-35.0); Mean Corpuscular Hemoglobin 26.9 pg (27.0-33.0); Mean Corpuscular Volume 82.7 fL (80.0-98.0); Mean Platelet Volume 11.5 fL (9.4-12.3); Monocytes Absolute Auto 0.4 X10*3/uL (0.1-1.2); Monocytes Percent Auto 4.8 % (2-11); Neutrophils Absolute Auto 7.6 x10*3/uL (2.0-8.3); Neutrophils Percent Auto 88.3 % (45-73); Platelet Count 205 X10*3/uL (160-400); Red Blood Count 4.57 X10*6/uL (4.20-5.50); Red Cell Distribution Width 15.8 % (11.0-16.0); White Blood Count 8.6 X10*3/uL (4.8-10.8)
[2022-02-09] MEDS: Albuterol/Iprat 2.5/0.5MG 3 ML AMPUL.NEB INHALE (17:03)
[2022-02-09] MEDS: Albuterol Sulfate (0.083%) 2.5 MG/3 ML VIAL.NEB INHALE (17:03)
[2022-02-09 17:31] LABS: Anion Gap 18 (12-20); Blood Urea Nitrogen 9 mg/dL (9-16); Calcium 9.4 mg/dL (8.4-10.2); Carbon Dioxide 18 mmol/L (22-29); Chloride 101 mmol/L (96-108); Creatinine Clr Calc Pharmacy 123.6; Estimated Glomerular Filt Rate > 60; Ethanol 164 mg/dL; Glucose Random 163 mg/dL (60-115); HCG Quantitative < 2 mIU/mL; Potassium 3.6 mmol/L (3.3-5.1); Sodium 133 mmol/L (135-145)
[2022-02-09] MEDS: methylPREDNISolone Sod Succ 125 MG/2 ML VIAL IVPUSH (17:32)
--- NOTE | 2022-02-09 20:03 | PC.NURSE ---
Per Mendoza, orthotics prosthetics technician report patient ambulated 100 ft on room air per MD order, patient O2 Sat dropped to 84% RA, patient became dyspneic, RR 24. Patient was brought back to her room, O2 applied at 1 LPM NC. Patient O2 Sat went up to 98% on 1 LPM, RR [address] Anthony made aware.
[2022-02-09] MEDS: Benzonatate 100 MG CAPSULE PO (20:14)
[2022-02-09] MEDS: Albuterol Sulfate 2.5 MG, Albuterol Sulfate (0.083%) 2.5 MG 5 MG INHALE (20:33)
[2022-02-09] MEDS: Magnesium Sulfate/H2O 2 GM/50 ML PIGGYBACK IV (20:39)
[2022-02-09] MEDS: Oseltamivir Phosphate 75 MG CAPSULE PO (20:42)
[2022-02-09] MEDS: ondansetron HCL 4 MG/2 ML VIAL IVPUSH (20:43)
--- NOTE | 2022-02-09 21:00 | P.HPHOSP_ITS ---
History of Present Illness Date of Service: 02/09/22 Chief Complaint: Dyspnea This is a 41-year-old female with pertinent history of asthma who presents to the ER for evaluation of dyspnea. Patient initially presented on 02/08 with dyspnea and wheezing. She was diagnosed with flu but left AMA after breathing treatments from the ER. Patient again presented today with worsening dyspnea and persistent wheezing. Shortness of breath is worse with exertion. No leg swelling. Patient states it started about 3-4 days ago. Initially had upper respiratory symptoms and dry cough. Patient states she is compliant with her home inhaler for asthma. Denies fever, chills, chest discomfort, shortness of breath, abdominal pain, chest pain, changes in urinary or bowel habits. In the emergency department, patient was found to be hypoxemic requiring 2 L supplemental oxygen. Review of Systems Constitutional: Constitutional: Reports fatigue and Reports malaise Cardiovascular: Cardiovascular: Reports no additional cardiovascular complaints and Reports dyspnea on exertion Respiratory: Respiratory: Reports cough and Reports dyspnea on exertion Gastrointestinal: Gastrointestinal: Reports no additional gastrointestinal complaints Genitourinary: Genitourinary: Reports no additional female genitourinary complaints Endocrine: Endocrine: Reports fatigue [facility] Medical History Asthma delivery delivered COPD (chronic obstructive pulmonary disease) Social History Household Members: Children Housing: Apartment Alcohol intake: current Alcohol intake frequency: holidays/special occasions only Alcohol type: beer Patient Tobacco Use Status: Former Tobacco user Smoked in Last 30 Days: No Use of substances other than those prescribed or required for medical reasons: No Substance Use Type: Marijuana Advance Directives: No Advance Directives Information Provided: Yes Patient : No service: No Current occupational status: unemployed Meds Allergies Allergy/AdvReac Type Severity Reaction Status Date / Time ibuprofen [From MOTRIN] Allergy Unknown SWELLING Verified 04/25/20 13:56 tramadol [TRAMADOL] Allergy Unknown SWELLING Verified 04/25/20 13:56 Active Medications: Current Medications Acetaminophen (Acetaminophen 325 Mg Tablet) 650 mg PO Q6H PRN PRN Reason: Pain, Mild (Pain Scale 1-3) Albuterol/Ipratropium (Albuterol/Iprat 2.5/0.5mg 3 Ml Ampul.Neb) 3 ml INHALE RQ4H WHILE AWAKE [facility] Albuterol/Ipratropium (Albuterol/Iprat 2.5/0.5mg 3 Ml Ampul.Neb) 3 ml INHALE RQ4H PRN PRN Reason: wheezing Enoxaparin Sodium (Enoxaparin Sodium 40 Mg/0.4 Ml Syringe) 40 mg SUBCUT Q24H [facility] Magnesium Sulfate (Magnesium Sulfate/H2o) 2 gm in 50 mls @ 25 mls/hr IV ONCE ONE Stop: 02/09/22 22:20 Last Admin: 02/09/22 20:39 Dose: 25 mls/hr Melatonin (Melatonin 3 Mg Tablet) 6 mg PO BEDTIME PRN PRN Reason: Insomnia Methylprednisolone Sodium Succinate (Methylprednisolone Sod Succ 40 Mg/Ml Vial) 40 mg IVPUSH Q12H [facility] Ondansetron HCl (Ondansetron Hcl 4 Mg/2 Ml Vial) 4 mg IVPUSH Q8H PRN PRN Reason: Nausea and Vomiting Last Admin: 02/09/22 20:43 Dose: 4 mg Oseltamivir Phosphate (Oseltamivir Phosphate 75 Mg Capsule) 75 mg PO Q12H [facility] Stop: 02/14/22 09:01 Last Admin: 02/09/22 20:42 Dose: 75 mg Sodium Chloride (0.9 % Sodium Chloride Flush 3 Ml Syringe) 3 ml IVFLUSH QSHIFT [facility] Home Medications Medication Instructions Recorded Confirmed Last Taken Type albuterol sulfate 90 mcg/actuation 2 puff inhalation QID PRN asthma 10/29/20 08/15/21 Unknown History aerosol inhaler (ProAir HFA) Physical Exam Vital Signs and Narrative: Vital Signs: Last Vital Signs Temp 98.3 F 02/09/22 20:27 Pulse 116 H 02/09/22 20:34 Resp 20 02/09/22 20:34 BP 165/96 H 02/09/22 20:27 Pulse Ox 99 02/09/22 20:27 O2 Del Method 02/09/22 20:27 O2 Flow Rate 1 02/09/22 20:27 BMI result Body Mass Index 34.0 Middle-aged female lying in bed in no distress Neck supple, no JVD Regular rate and rhythm, S1-S2 heard Bilateral expiratory wheezing present Abdomen soft nontender, no guarding, no rigidity Patient is awake, alert and oriented to self, place, time and person ; no focal motor deficit Psych: Normal mood No pedal edema Results Labs CBC and Chem 7: 02/09/22 16:56 02/09/22 16:56 Labs: Laboratory Results - last 24 hr 02/09/22 02/09/22 16:56 16:56 MCV 82.7 MCH 26.9 L MCHC 32.5 RDW 15.8 Plt Count 205 MPV 11.5 Immature Gran % (Auto) 0.5 H Neut % (Auto) 88.3 H Lymph % (Auto) 6.4 L [place] % (Auto) 4.8 Eos % (Auto) 0.0 Baso % (Auto) 0.0 Lymph # (Auto) 0.6 L [place] # (Auto) 0.4 Eos # (Auto) 0.0 Baso # (Auto) 0.0 Abs Immat Gran (auto) 0.04 H Absolute Neuts (auto) 7.6 Absolute Nucleated RBC 0.000 Nucleated RBC % (auto) 0.0 Anion Gap 18 Estim Creat Clear Calc 123.6 Estimated GFR > 60 Random Glucose 163 H Calcium 9.4 D Beta HCG, Quant < 2 Ethyl Alcohol 164 Imaging Radiologist's Impressions: Impressions Chest X-Ray 02/09/22 16:50 IMPRESSION: * Clear lungs. Assessment and Plan (1) Asthma: Status: Acute (2) Influenza: Status: Acute (3) Hypoxia: Status: Acute Plan This is a 41-year-old female with pertinent history of asthma who presents to the ER for evaluation of dyspnea. Patient initially presented on 02/08 with dyspnea and wheezing. #. Acute hypoxemic respiratory failure due to: #. Acute exacerbation of asthma in the setting of influenza A infection -will admit patient with supplemental oxygen. Currently on 2 L, monitor and wean as tolerated. Maintain oxygen saturation greater than 90%. -initiating DuoNebs she dual and p.r.n.. Continue systemic steroids. Continue home inhaler -initiated Tamiflu DVT prophylaxis: Lovenox 40 mg daily Full code Diet: Regular diet Admit as inpatient and will require two night minimum hospital stay for supplemental oxygen and scheduled DuoNebs. Quality Stroke Does the patient have a stroke diagnosis?: No VTE Prior VTE?: No VTE Risk Level:: Medical - low VTE Device Contraindication: Treatment Not Indicated VTE Drug Contraindication: N/A - Med Ordered
[2022-02-09] MEDS: Enoxaparin Sodium 40 MG/0.4 ML SYRINGE SUBCUT (21:06)
[2022-02-09 22:04] LABS: COVID-19 Test Negative (Negative)
[2022-02-09] MEDS: Acetaminophen 325 MG TABLET 650 MG PO (22:40)
--- NOTE | 2022-02-09 23:00 | PC.NURSE ---
Addendum entered by Senia Mcrae 02/10/22 00:16: EKG obtained for chest/abd pain, sent to provider. New orders obtained. Original Note: PT a&ox3, reports chest wall pain when coughing causing her to vomit. PT medicated as documented with zofran and tylenol. LS clear. PT on 1L via NC, sat o2 at 96-98%. CIWA assessment score 5. No s&s of alcohol withdrawal. Will continue to monitor.
[2022-02-09] MEDS: 0.9 % Sodium Chloride Flush 3 ML SYRINGE IVFLUSH (23:52)
[2022-02-10] VITALS (12 sets, daily range): BP systolic 150–203; BP diastolic 79–112; PULSE 91–113; RESP 13–93; TEMP 36.6–37.2; O2SAT 93–97; BMI 34.0
[2022-02-10] MEDS: LORazepam 1 MG TABLET PO (00:22)
[2022-02-10] MEDS: Magnesium Hydrox/Alum Hydrox 30 ML ORAL.SUSP PO (00:50)
[2022-02-10] MEDS: PHENobarbitaL 100 MG, PHENobarbitaL 60 MG 160 MG PO (01:35)
--- NOTE | 2022-02-10 01:45 | PC.NURSE ---
Dr. Reilly aware of PTs continued complaint of 10/[address] Reilly at bedside, new prescription given as ordered.
[2022-02-10] MEDS: Ketorolac Tromethamine 30 MG/ML VIAL IVPUSH (02:29)
--- NOTE | 2022-02-10 04:02 | PC.NURSE ---
Med given as documented. PT reports + effects, decrease pain 0/10 .
--- NOTE | 2022-02-10 05:15 | PC.NURSE ---
assumed care of patient at this time. Sinus Tachycardia on the monitor. on 2L nasal cannula. Flu a positive, precautions in place. call sutton within reach
--- NOTE | 2022-02-10 05:17 | PC.NURSE ---
RN to RN Report given, PT transported to ED overflow.
[2022-02-10] MEDS: Omeprazole 40 MG CAPSULE.DR PO (05:22)
[2022-02-10] MEDS: methylPREDNISolone Sod Succ 40 MG/ML VIAL IVPUSH ×2 (05:22→18:06)
[2022-02-10] MEDS: Benzonatate 100 MG CAPSULE 200 MG PO (05:22)
[2022-02-10 06:53] LABS: MANUAL DIFF FLAG NO
[2022-02-10 07:00] LABS: Basophils Percent Auto 0.1 % (0-2); Hematocrit 39.3 % (37.0-47.0); Hemoglobin 12.6 g/dl (12.0-16.0); Imm Gran Abs Auto 0.05 X10*3/uL (0.00-0.03); Imm Gran Pct Auto 0.5 % (0.0-0.4); Lymphocytes Absolute Auto 0.6 X10*3/uL (1.2-4.9); Lymphocytes Percent Auto 5.8 % (20-40); Mean Corpuscular HGB Conc 32.1 g/dl (31.0-35.0); Mean Corpuscular Hemoglobin 26.7 pg (27.0-33.0); Mean Corpuscular Volume 83.3 fL (80.0-98.0); Mean Platelet Volume 11.6 fL (9.4-12.3); Monocytes Absolute Auto 0.6 X10*3/uL (0.1-1.2); Monocytes Percent Auto 5.1 % (2-11); Neutrophils Absolute Auto 9.7 x10*3/uL (2.0-8.3); Neutrophils Percent Auto 88.5 % (45-73); Platelet Count 234 X10*3/uL (160-400); Red Blood Count 4.72 X10*6/uL (4.20-5.50)
[2022-02-10 07:59] LABS: Anion Gap 9 (12-20); Blood Urea Nitrogen 19 mg/dL (9-16); Calcium 9.4 mg/dL (8.4-10.2); Carbon Dioxide 26 mmol/L (22-29); Chloride 100 mmol/L (96-108); Creatinine Clr Calc Pharmacy 123.6; Estimated Glomerular Filt Rate > 60; Glucose Random 142 mg/dL (60-115); Potassium 3.9 mmol/L (3.3-5.1); Sodium 131 mmol/L (135-145)
--- NOTE | 2022-02-10 08:21 | PHA.MEDREC ---
Pharmacy Consult ? Medication Reconciliation Pharmacy has completed the medication reconciliation.
--- NOTE | 2022-02-10 08:29 | PC.NURSE ---
Contact made to pharmacy regarding pyxis not giving 100mg of phenobarb. Per blanca hold phenobarb until 100mg dose is brought.
[2022-02-10] MEDS: Oseltamivir Phosphate 75 MG CAPSULE PO ×2 (08:30→23:51)
[2022-02-10] MEDS: Folic Acid 1 MG TABLET PO (08:30)
[2022-02-10] MEDS: 0.9 % Sodium Chloride Flush 3 ML SYRINGE IVFLUSH ×2 (08:31→23:53)
[2022-02-10] MEDS: Thiamine HCL 100 MG TABLET PO (08:31)
[2022-02-10] MEDS: Albuterol/Iprat 2.5/0.5MG 3 ML AMPUL.NEB INHALE ×4 (08:47→22:45)
[2022-02-10] MEDS: Montelukast Sodium 10 MG TABLET PO (10:24)
[2022-02-10] MEDS: Labetalol HCL 100 MG TABLET PO ×2 (10:25→21:01)
[2022-02-10] MEDS: guaiFENesin 100 MG/5 ML LIQUID 10 ML PO (10:25)
--- NOTE | 2022-02-10 12:09 | HO.PM.IMPN ---
Subjective Subjective Date of Service: 02/10/22 Interval History: Asthma exacerbation, influenza Review of Systems Patient is still having received cough, short of breath with minimal talking Has soreness also when she coughs , also has nausea Denies any fever or chills Physical Exam Vital Signs: Vital Signs: Last Vital Signs Temp 98.2 F 02/10/22 09:39 Pulse 91 02/10/22 11:23 Resp 18 02/10/22 11:23 BP 184/92 H 02/10/22 09:58 Pulse Ox 93 02/10/22 09:39 O2 Del Method 02/10/22 09:39 O2 Flow Rate 2 02/10/22 09:39 BMI result Body Mass Index 34.0 ?Middle-aged female lying ,anxious ,coughing spells Neck supple, no JVD Regular rate and rhythm, S1-S2 heard Bilateral expiratory wheezing present Abdomen soft nontender, no guarding, no rigidity Patient is awake, alert and oriented to self, place, time and person ; no focal motor deficit Psych: Normal mood No pedal edema Objective Data Active Medications Acetaminophen (Acetaminophen 325 Mg Tablet) 650 mg PO Q6H PRN PRN Reason: Pain, Mild (Pain Scale 1-3) Last Admin: 02/09/22 22:40 Dose: 650 mg Documented By: RUSSELL Albuterol/Ipratropium (Albuterol/Iprat 2.5/0.5mg 3 Ml Ampul.Neb) 3 ml INHALE RQ4H WHILE AWAKE [facility] Last Admin: 02/10/22 11:23 Dose: 3 ml Documented By: JENA Albuterol/Ipratropium (Albuterol/Iprat 2.5/0.5mg 3 Ml Ampul.Neb) 3 ml INHALE RQ4H PRN PRN Reason: wheezing Benzonatate (Benzonatate 100 Mg Capsule) 200 mg PO TID PRN PRN Reason: cough Last Admin: 02/10/22 05:22 Dose: 200 mg Documented By: KHURRAM Enoxaparin Sodium (Enoxaparin Sodium 40 Mg/0.4 Ml Syringe) 40 mg SUBCUT Q24H [facility] Last Admin: 02/09/22 21:06 Dose: 40 mg Documented By: RUSSELL Folic Acid (Folic Acid 1 Mg Tablet) 1 mg PO DAILY [facility] Last Admin: 02/10/22 08:30 Dose: 1 mg Documented By: PANCHITO Guaifenesin (Guaifenesin 100 Mg/5 Ml Liquid) 10 ml PO Q4H PRN PRN Reason: Cough Last Admin: 02/10/22 10:25 Dose: 10 ml Documented By: PANCHITO Hydralazine HCl (Hydralazine Hcl 20 Mg/Ml Vial) 5 mg IVPUSH Q4H PRN; Protocol PRN Reason: htn Labetalol HCl (Labetalol Hcl 100 Mg Tablet) 100 mg PO BID [facility]; Protocol Melatonin (Melatonin 3 Mg Tablet) 6 mg PO BEDTIME PRN PRN Reason: Insomnia Methylprednisolone Sodium Succinate (Methylprednisolone Sod Succ 40 Mg/Ml Vial) 40 mg IVPUSH Q12H [facility] Last Admin: 02/10/22 05:22 Dose: 40 mg Documented By: KHURRAM Montelukast Sodium (Montelukast Sodium 10 Mg Tablet) 10 mg PO DAILY [facility] Last Admin: 02/10/22 10:24 Dose: 10 mg Documented By: PANCHITO Omeprazole (Omeprazole 40 Mg Capsule.Dr) 40 mg PO DAILY@0630 [facility] Last Admin: 02/10/22 05:22 Dose: 40 mg Documented By: KHURRAM Ondansetron HCl (Ondansetron Hcl 4 Mg/2 Ml Vial) 4 mg IVPUSH Q8H PRN PRN Reason: Nausea and Vomiting Last Admin: 02/09/22 20:43 Dose: 4 mg Documented By: RUSSELL Oseltamivir Phosphate (Oseltamivir Phosphate 75 Mg Capsule) 75 mg PO Q12H [facility] Stop: 02/14/22 09:01 Last Admin: 02/10/22 08:30 Dose: 75 mg Documented By: PANCHITO Pharmacy Consult (Consult Rx Perform Med Rec) 1 each MISCELLANE ONCE PRN PRN Reason: Consult order Pharmacy Consult (Consult Rx Etoh Phenob Po Only) 1 each MISCELLANE ONCE PRN; Protocol PRN Reason: Consult order Phenobarbital (Phenobarbital 15 Mg Tablet) 45 mg PO BID [facility] Stop: 02/12/22 09:01 Phenobarbital (Phenobarbital 15 Mg Tablet) 15 mg PO BID [facility] Stop: 02/14/22 09:01 Phenobarbital (Phenobarbital 15 Mg Tablet) 15 mg PO DAILY [facility] Stop: 02/16/22 09:01 Sodium Chloride (0.9 % Sodium Chloride Flush 3 Ml Syringe) 3 ml IVFLUSH QSHIFT [facility] Last Admin: 02/10/22 08:31 Dose: 3 ml Documented By: PANCHITO Thiamine HCl (Thiamine Hcl 100 Mg Tablet) 100 mg PO DAILY [facility] Last Admin: 02/10/22 08:31 Dose: 100 mg Documented By: PANCHITO Labs CBC & Chem 7: 02/10/22 06:18 02/10/22 06:18 Labs: Laboratory Results - last 24 hr 02/09/22 02/09/22 02/09/22 16:56 16:56 21:21 MCV 82.7 MCH 26.9 L MCHC 32.5 RDW 15.8 Plt Count 205 MPV 11.5 Immature Gran % (Auto) 0.5 H Neut % (Auto) 88.3 H Lymph % (Auto) 6.4 L [place] % (Auto) 4.8 Eos % (Auto) 0.0 Baso % (Auto) 0.0 Lymph # (Auto) 0.6 L [place] # (Auto) 0.4 Eos # (Auto) 0.0 Baso # (Auto) 0.0 Abs Immat Gran (auto) 0.04 H Absolute Neuts (auto) 7.6 Absolute Nucleated RBC 0.000 Nucleated RBC % (auto) 0.0 Anion Gap 18 Estim Creat Clear Calc 123.6 Estimated GFR > 60 Random Glucose 163 H Calcium 9.4 D Beta HCG, Quant < 2 Ethyl Alcohol 164 COVID-19 ([facility]I) Negative COVID-19 Clin Com See Note 02/10/22 02/10/22 06:18 06:18 MCV 83.3 MCH 26.7 L MCHC 32.1 RDW 16.0 Plt Count 234 MPV 11.6 Immature Gran % (Auto) 0.5 H Neut % (Auto) 88.5 H Lymph % (Auto) 5.8 L [place] % (Auto) 5.1 Eos % (Auto) 0.0 Baso % (Auto) 0.1 Lymph # (Auto) 0.6 L [place] # (Auto) 0.6 Eos # (Auto) 0.0 Baso # (Auto) 0.0 Abs Immat Gran (auto) 0.05 H Absolute Neuts (auto) 9.7 H Absolute Nucleated RBC 0.000 Nucleated RBC % (auto) 0.0 Anion Gap 9 L Estim Creat Clear Calc 123.6 Estimated GFR > 60 Random Glucose 142 H Calcium 9.4 Beta HCG, Quant Ethyl Alcohol COVID-19 ([facility]) COVID-19 Clin Com Assessment and Plan (1) Hypoxia: Status: Acute (2) Influenza: Status: Acute (3) Asthma: Status: Acute (4) Alcohol withdrawal: Status: Acute (5) Cough: Status: Acute Plan 41-year-old female with pertinent history of asthma who presents to the ER for evaluation of dyspnea.? Patient initially presented on 02/08 with dyspnea and wheezing. #.? Acute hypoxemic respiratory failure due to: #.? Acute exacerbation of asthma(mild intermittent asthma) in the setting of influenza A infection -will admit patient with supplemental oxygen.? Currently on 2 L, monitor and wean as tolerated.? Maintain oxygen saturation greater than 90%. -initiating DuoNebs she dual and p.r.n..? Continue systemic steroids,Tamiflu possible alcohol withdrawal: still anxious ,elevated blood pressure: ciwa , thiamine, folic acid, phenobarb, added labetalol Monitor closely. DVT prophylaxis: Lovenox 40 mg daily Full code Diet: Regular diet ongoing inpatient need: Acute exacerbation of asthma in the setting of influenza A -need oxygen and scheduled DuoNebs,iv steriods ,alochol withdrwal -on phenobarbital protocol,ciwa monitering.? Quality Stroke Does the patient have a stroke diagnosis?: No VTE Prior VTE?: No VTE Risk Level:: Medical - low VTE Device Contraindication: Treatment Not Indicated VTE Drug Contraindication: N/A - Med Ordered
[2022-02-10] MEDS: Loratadine 10 MG TABLET PO (13:03)
[2022-02-10] MEDS: Acetaminophen 325 MG TABLET 650 MG PO (18:06)
--- NOTE | 2022-02-10 20:30 | PM.EVENT ---
Event Note Date of Service: 02/10/22 Event Note: Addiction consult: Recovery support RN to follow up 02/11/2022
[2022-02-10] MEDS: PHENobarbitaL 15 MG TABLET 45 MG PO (21:01)
[2022-02-10] MEDS: Enoxaparin Sodium 40 MG/0.4 ML SYRINGE SUBCUT (23:51)
[2022-02-11] VITALS (8 sets, daily range): BP systolic 145–172; BP diastolic 77–95; PULSE 84–115; RESP 16–26; TEMP 36.8–37.2; O2SAT 93–99
[2022-02-11] MEDS: Melatonin 3 MG TABLET 6 MG PO ×2 (00:01→22:12)
[2022-02-11] MEDS: guaiFENesin 100 MG/5 ML LIQUID 10 ML PO ×5 (00:07→22:13)
[2022-02-11] MEDS: Benzonatate 100 MG CAPSULE 200 MG PO ×2 (02:51→22:13)
[2022-02-11] MEDS: methylPREDNISolone Sod Succ 40 MG/ML VIAL IVPUSH ×2 (05:35→18:09)
[2022-02-11] MEDS: Omeprazole 40 MG CAPSULE.DR PO (05:35)
[2022-02-11] MEDS: Acetaminophen 325 MG TABLET 650 MG PO ×3 (05:36→20:26)
[2022-02-11] MEDS: Labetalol HCL 100 MG TABLET PO ×2 (07:30→20:26)
[2022-02-11] MEDS: PHENobarbitaL 15 MG TABLET 45 MG PO ×2 (07:31→22:11)
[2022-02-11] MEDS: Thiamine HCL 100 MG TABLET PO (07:31)
[2022-02-11] MEDS: Loratadine 10 MG TABLET PO (07:31)
[2022-02-11] MEDS: Folic Acid 1 MG TABLET PO (07:31)
[2022-02-11] MEDS: Oseltamivir Phosphate 75 MG CAPSULE PO ×2 (07:32→20:25)
[2022-02-11] MEDS: 0.9 % Sodium Chloride Flush 3 ML SYRINGE IVFLUSH ×3 (07:32→20:27)
[2022-02-11] MEDS: Montelukast Sodium 10 MG TABLET PO (07:32)
--- NOTE | 2022-02-11 07:40 | MHC.CM.PN ---
PATIENT STILL SOB AND ASKING TO SLEEP. PER REVIEW OF MEDICAL RECORD, PATIENT IS INDEPENDENT WITH ALL ADLS NO DME OR VNA SERVICES HCP IS ON FILE AND VERIFIED. CASE MANAGEMENT AVAILABLE FOR ANY DC NEEDS. CASE MANAGEMENT NAME AND DC PLAN WRITTEN ON WHITE BOARD
[2022-02-11] MEDS: Albuterol/Iprat 2.5/0.5MG 3 ML AMPUL.NEB INHALE ×4 (08:23→19:23)
--- NOTE | 2022-02-11 11:29 | MHC.CM.PN ---
PER MD ROUNDS, PT IS NOT MEDICALLY READY FOR DC DC PLAN REMAINS HOME-SELF CARE PT TO ARRANGE TRANSPORT
--- NOTE | 2022-02-11 12:32 | MHC.RECOVRN ---
Attempted to meet with pt in 344 to discuss alcohol use. Upon entering room, pt laying in bed, eyes closed throughout entire conversation. Pt awake and oriented. Pt dismissive of t/w after introduction, at times not answering questions. Unable to engage pt in conversation at this time. Will continue to follow.
--- NOTE | 2022-02-11 14:47 | P.PNIM_ITS ---
Subjective Subjective Date of Service: 02/11/22 Interval History: Asthma exacerbation, influenza Review of Systems Patient is still having received cough, short of breath with minimal talking Has soreness also when she coughs , also has nausea Denies any fever or chills Physical Exam Vital Signs: Vital Signs: Last Vital Signs Temp 98.2 F 02/11/22 07:43 Pulse 96 02/11/22 11:49 Resp 16 02/11/22 11:49 BP 156/86 H 02/11/22 07:43 Pulse Ox 94 02/11/22 08:23 O2 Del Method 02/11/22 07:43 O2 Flow Rate 2 02/11/22 07:43 BMI result Body Mass Index 34.0 Middle-aged female lying ,anxious ,coughing spells Neck supple, no JVD Regular rate and rhythm, S1-S2 heard Bilateral expiratory wheezing present Abdomen soft nontender, no guarding, no rigidity Patient is awake, alert and oriented to self, place, time and person ; no focal motor deficit Psych: Normal mood No pedal edema Objective Data Active Medications Acetaminophen (Acetaminophen 325 Mg Tablet) 650 mg PO Q6H PRN PRN Reason: Pain, Mild (Pain Scale 1-3) Last Admin: 02/11/22 13:09 Dose: 650 mg Documented By: ALPHONSO Albuterol/Ipratropium (Albuterol/Iprat 2.5/0.5mg 3 Ml Ampul.Neb) 3 ml INHALE RQ4H WHILE AWAKE [facility] Last Admin: 02/11/22 11:48 Dose: 3 ml Documented By: JAVI Albuterol/Ipratropium (Albuterol/Iprat 2.5/0.5mg 3 Ml Ampul.Neb) 3 ml INHALE RQ4H PRN PRN Reason: wheezing Benzonatate (Benzonatate 100 Mg Capsule) 200 mg PO TID PRN PRN Reason: cough Last Admin: 02/11/22 02:51 Dose: 200 mg Documented By: FAUSTINO Enoxaparin Sodium (Enoxaparin Sodium 40 Mg/0.4 Ml Syringe) 40 mg SUBCUT Q24H [facility] Last Admin: 02/10/22 23:51 Dose: 40 mg Documented By: FAUSTINO Folic Acid (Folic Acid 1 Mg Tablet) 1 mg PO DAILY [facility] Last Admin: 02/11/22 07:31 Dose: 1 mg Documented By: ALPHONSO Guaifenesin (Guaifenesin 100 Mg/5 Ml Liquid) 10 ml PO Q4H PRN PRN Reason: Cough Last Admin: 02/11/22 13:09 Dose: 10 ml Documented By: ALPHONSO Hydralazine HCl (Hydralazine Hcl 20 Mg/Ml Vial) 5 mg IVPUSH Q4H PRN; Protocol PRN Reason: htn Labetalol HCl (Labetalol Hcl 100 Mg Tablet) 100 mg PO BID [facility]; Protocol Last Admin: 02/11/22 07:30 Dose: 100 mg Documented By: ALPHONSO Lidocaine/Diphenhydr/Alum/Mg/Simeth (Mag&Al/Sim/Diphenhyd/Lidocaine 10 Ml Oral.Susp) 10 ml PO Q4H PRN; Protocol PRN Reason: cough/pain Loratadine (Loratadine 10 Mg Tablet) 10 mg PO DAILY [facility] Last Admin: 02/11/22 07:31 Dose: 10 mg Documented By: ALPHONSO Melatonin (Melatonin 3 Mg Tablet) 6 mg PO BEDTIME PRN PRN Reason: Insomnia Last Admin: 02/11/22 00:01 Dose: 6 mg Documented By: FAUSTINO Methylprednisolone Sodium Succinate (Methylprednisolone Sod Succ 40 Mg/Ml Vial) 40 mg IVPUSH Q12H [facility] Last Admin: 02/11/22 05:35 Dose: 40 mg Documented By: FAUSTINO Montelukast Sodium (Montelukast Sodium 10 Mg Tablet) 10 mg PO DAILY [facility] Last Admin: 02/11/22 07:32 Dose: 10 mg Documented By: ALPHONSO Omeprazole (Omeprazole 40 Mg Capsule.) 40 mg PO DAILY@0630 [facility] Last Admin: 02/11/22 05:35 Dose: 40 mg Documented By: FAUSTINO Omeprazole (Omeprazole 20 Mg Capsule.) 20 mg PO DAILY@0630 [facility] Ondansetron HCl (Ondansetron Hcl 4 Mg/2 Ml Vial) 4 mg IVPUSH Q8H PRN PRN Reason: Nausea and Vomiting Last Admin: 02/09/22 20:43 Dose: 4 mg Documented By: NITOANX Oseltamivir Phosphate (Oseltamivir Phosphate 75 Mg Capsule) 75 mg PO Q12H [facility] Stop: 02/14/22 09:01 Last Admin: 02/11/22 07:32 Dose: 75 mg Documented By: ALPHONSO Pharmacy Consult (Consult Rx Perform Med Rec) 1 each MISCELLANE ONCE PRN PRN Reason: Consult order Pharmacy Consult (Consult Rx Etoh Phenob Po Only) 1 each MISCELLANE ONCE PRN; Protocol PRN Reason: Consult order Phenobarbital (Phenobarbital 15 Mg Tablet) 45 mg PO BID [facility] Stop: 02/12/22 09:01 Last Admin: 02/11/22 07:31 Dose: 45 mg Documented By: ALPHONSO Phenobarbital (Phenobarbital 15 Mg Tablet) 15 mg PO BID [facility] Stop: 02/14/22 09:01 Phenobarbital (Phenobarbital 15 Mg Tablet) 15 mg PO DAILY [facility] Stop: 02/16/22 09:01 Sodium Chloride (0.9 % Sodium Chloride Flush 3 Ml Syringe) 3 ml IVFLUSH QSHIFT [facility] Last Admin: 02/11/22 07:32 Dose: 3 ml Documented By: ALPHONSO Thiamine HCl (Thiamine Hcl 100 Mg Tablet) 100 mg PO DAILY [facility] Last Admin: 02/11/22 07:31 Dose: 100 mg Documented By: ALPHONSO Labs CBC & Chem 7: 02/10/22 06:18 02/10/22 06:18 Assessment and Plan (1) Hypoxia: Status: Acute (2) Influenza: Status: Acute (3) Asthma: Status: Acute (4) Alcohol withdrawal: Status: Acute (5) Cough: Status: Acute Plan 41-year-old female with pertinent history of asthma who presents to the ER for evaluation of dyspnea.? Patient initially presented on 02/08 with dyspnea and wheezing. #.? Acute hypoxemic respiratory failure due to: #.? Acute exacerbation of asthma(mild intermittent asthma) in the setting of inf luenza A infection -will admit patient with supplemental oxygen.? Currently on 2 L, monitor and wean as tolerated.? Maintain oxygen saturation greater than 90%. -initiating DuoNebs she dual and p.r.n..? Continue systemic steroids,Tamiflu possible alcohol withdrawal: still anxious ,elevated blood pressure: ciwa , thiamine, folic acid, phenobarb, added labetalol Monitor closely. DVT prophylaxis: Lovenox 40 mg daily Full code Diet: Regular diet ongoing inpatient need: Acute exacerbation of asthma in the setting of influenza A -need oxygen and scheduled DuoNebs,iv steriods ,alochol withdrwal - on phenobarbital protocol,ciwa monitering.? Quality Stroke Does the patient have a stroke diagnosis?: No VTE Prior VTE?: No VTE Risk Level:: Medical - low VTE Device Contraindication: Treatment Not Indicated VTE Drug Contraindication: N/A - Med Ordered
[2022-02-11] MEDS: Enoxaparin Sodium 40 MG/0.4 ML SYRINGE SUBCUT (22:13)
[2022-02-12] VITALS (8 sets, daily range): BP systolic 122–140; BP diastolic 64–86; PULSE 98–112; RESP 17–22; TEMP 36.2–36.8; O2SAT 91–99
[2022-02-12] MEDS: guaiFENesin 100 MG/5 ML LIQUID 10 ML PO ×4 (02:44→20:04)
[2022-02-12] MEDS: Acetaminophen 325 MG TABLET 650 MG PO ×3 (02:47→18:10)
[2022-02-12] MEDS: methylPREDNISolone Sod Succ 40 MG/ML VIAL IVPUSH ×2 (06:15→17:20)
[2022-02-12] MEDS: Omeprazole 40 MG CAPSULE.DR PO (06:19)
[2022-02-12] MEDS: Albuterol/Iprat 2.5/0.5MG 3 ML AMPUL.NEB INHALE ×4 (06:19→20:41)
--- NOTE | 2022-02-12 06:24 | PC.NURSE ---
PT C/O tight chest and pain with cough states not able to breathe ; o2 sat 99% on 2 L she was given scheduled solumedrol, and resp was called for breathing tx AND given and md dr PRYOR ordered x-ray of chest and toradol for pain
[2022-02-12] MEDS: Ketorolac Tromethamine 30 MG/ML VIAL IVPUSH (06:33)
[2022-02-12] MEDS: Folic Acid 1 MG TABLET PO (08:25)
[2022-02-12] MEDS: Labetalol HCL 100 MG TABLET PO ×2 (08:25→20:04)
[2022-02-12] MEDS: Thiamine HCL 100 MG TABLET PO (08:25)
[2022-02-12] MEDS: Loratadine 10 MG TABLET PO (08:25)
[2022-02-12] MEDS: Oseltamivir Phosphate 75 MG CAPSULE PO ×2 (08:25→20:05)
[2022-02-12] MEDS: Montelukast Sodium 10 MG TABLET PO (08:26)
[2022-02-12] MEDS: PHENobarbitaL 15 MG TABLET 45 MG PO (08:26)
[2022-02-12] MEDS: 0.9 % Sodium Chloride Flush 3 ML SYRINGE IVFLUSH ×3 (08:31→20:58)
[2022-02-12] MEDS: Benzonatate 100 MG CAPSULE 200 MG PO ×2 (11:40→20:04)
[2022-02-12] MEDS: cefTRIAXone sodium 1 GM in 0.9 % Sodium Chloride 50 ML IV (11:50)
[2022-02-12] MEDS: Azithromycin 500 MG in 0.9 % Sodium Chloride 250 ML 125 MG IV (12:28)
[2022-02-12] MEDS: Ketorolac Tromethamine 15 MG/ML VIAL IVPUSH ×2 (13:33→20:57)
--- NOTE | 2022-02-12 15:43 | P.PNIM_ITS ---
Subjective Subjective Date of Service: 02/12/22 Interval History: Asthma exacerbation, influenza Review of Systems Patient is still having received cough, short of breath with minimal talking Has soreness also when she coughs , also has nausea Denies any fever or chills Physical Exam Vital Signs: Vital Signs: Last Vital Signs Temp 97.5 F 02/12/22 15:13 Pulse 107 H 02/12/22 15:19 Resp 20 02/12/22 15:19 BP 123/68 02/12/22 15:13 Pulse Ox 97 02/12/22 15:13 O2 Del Method 02/12/22 15:13 O2 Flow Rate 2 02/12/22 08:00 BMI result Body Mass Index 34.0 Middle-aged female lying ,anxious ,coughing spells Neck supple, no JVD Regular rate and rhythm, S1-S2 heard Bilateral expiratory wheezing present Abdomen soft nontender, no guarding, no rigidity Patient is awake, alert and oriented to self, place, time and person ; no focal motor deficit Psych: Normal mood No pedal edema Objective Data Active Medications Acetaminophen (Acetaminophen 325 Mg Tablet) 650 mg PO Q6H PRN PRN Reason: Pain, Mild (Pain Scale 1-3) Last Admin: 02/12/22 11:49 Dose: 650 mg Documented By: ARABELLA Albuterol/Ipratropium (Albuterol/Iprat 2.5/0.5mg 3 Ml Ampul.Neb) 3 ml INHALE RQ4H WHILE AWAKE [facility] Last Admin: 02/12/22 15:16 Dose: 3 ml Documented By: ANGELA Albuterol/Ipratropium (Albuterol/Iprat 2.5/0.5mg 3 Ml Ampul.Neb) 3 ml INHALE RQ4H PRN PRN Reason: wheezing Benzonatate (Benzonatate 100 Mg Capsule) 200 mg PO TID PRN PRN Reason: cough Last Admin: 02/12/22 11:40 Dose: 200 mg Documented By: ARABELLA Enoxaparin Sodium (Enoxaparin Sodium 40 Mg/0.4 Ml Syringe) 40 mg SUBCUT Q24H [facility] Last Admin: 02/11/22 22:13 Dose: 40 mg Documented By: JESSICA Folic Acid (Folic Acid 1 Mg Tablet) 1 mg PO DAILY [facility] Last Admin: 02/12/22 08:25 Dose: 1 mg Documented By: ARABELLA Guaifenesin (Guaifenesin 100 Mg/5 Ml Liquid) 10 ml PO Q4H PRN PRN Reason: Cough Last Admin: 02/12/22 08:30 Dose: 10 ml Documented By: ARABELLA Hydralazine HCl (Hydralazine Hcl 20 Mg/Ml Vial) 5 mg IVPUSH Q4H PRN; Protocol PRN Reason: htn Azithromycin 500 mg/ Sodium (Chloride) 250 mls @ 125 mls/hr IV Q24H [facility] Last Infusion: 02/12/22 14:56 Dose: 0 mls/hr Documented By: ARABELLA Ceftriaxone Sodium 1 gm/ (Sodium Chloride) 50 mls @ 100 mls/hr IV Q24H [facility] Last Infusion: 02/12/22 12:23 Dose: 0 mls/hr Documented By: ARABELLA Labetalol HCl (Labetalol Hcl 100 Mg Tablet) 100 mg PO BID VIDAL; Protocol Last Admin: 02/12/22 08:25 Dose: 100 mg Documented By: ARABELLA Lidocaine/Diphenhydr/Alum/Mg/Simeth (Mag&Al/Sim/Diphenhyd/Lidocaine 10 Ml Oral.Susp) 10 ml PO Q4H PRN; Protocol PRN Reason: cough/pain Loratadine (Loratadine 10 Mg Tablet) 10 mg PO DAILY [facility] Last Admin: 02/12/22 08:25 Dose: 10 mg Documented By: ARABELLA Melatonin (Melatonin 3 Mg Tablet) 6 mg PO BEDTIME PRN PRN Reason: Insomnia Last Admin: 02/11/22 22:12 Dose: 6 mg Documented By: JESSICA Methylprednisolone Sodium Succinate (Methylprednisolone Sod Succ 40 Mg/Ml Vial) 40 mg IVPUSH Q12H [facility] Last Admin: 02/12/22 06:15 Dose: 40 mg Documented By: JESSICA Montelukast Sodium (Montelukast Sodium 10 Mg Tablet) 10 mg PO DAILY [facility] Last Admin: 02/12/22 08:26 Dose: 10 mg Documented By: ARABELLA Omeprazole (Omeprazole 40 Mg Capsule.Dr) 40 mg PO DAILY@0630 [facility] Last Admin: 02/12/22 06:19 Dose: 40 mg Documented By: JESSICA Ondansetron HCl (Ondansetron Hcl 4 Mg/2 Ml Vial) 4 mg IVPUSH Q8H PRN PRN Reason: Nausea and Vomiting Last Admin: 02/09/22 20:43 Dose: 4 mg Documented By: RUSSELL Oseltamivir Phosphate (Oseltamivir Phosphate 75 Mg Capsule) 75 mg PO Q12H [facility] Stop: 02/14/22 09:01 Last Admin: 02/12/22 08:25 Dose: 75 mg Documented By: ARABELLA Pharmacy Consult (Consult Rx Perform Med Rec) 1 each MISCELLANE ONCE PRN PRN Reason: Consult order Pharmacy Consult (Consult Rx Etoh Phenob Po Only) 1 each MISCELLANE ONCE PRN; Protocol PRN Reason: Consult order Phenobarbital (Phenobarbital 15 Mg Tablet) 15 mg PO BID [facility] Stop: 02/14/22 09:01 Phenobarbital (Phenobarbital 15 Mg Tablet) 15 mg PO DAILY [facility] Stop: 02/16/22 09:01 Sodium Chloride (0.9 % Sodium Chloride Flush 3 Ml Syringe) 3 ml IVFLUSH QSHIFT [facility] Last Admin: 02/12/22 08:31 Dose: 3 ml Documented By: ARABELLA Thiamine HCl (Thiamine Hcl 100 Mg Tablet) 100 mg PO DAILY [facility] Last Admin: 02/12/22 08:25 Dose: 100 mg Documented By: ARABELLA Labs CBC & Chem 7: 02/10/22 06:18 02/10/22 06:18 Assessment and Plan (1) Cough: Status: Acute (2) Alcohol withdrawal: Status: Acute (3) Hypoxia: Status: Acute (4) Influenza: Status: Acute (5) Pneumonia: Status: Acute Plan 41-year-old female with pertinent history of asthma who presents to the ER for evaluation of dyspnea.? Patient initially presented on 02/08 with dyspnea and wheezing. #.? Acute hypoxemic respiratory failure due to: #.? Acute exacerbation of asthma(mild intermittent asthma) in the setting of influenza A infection,possible pneumonia superimposed -will admit patient with supplemental oxygen.? Currently on 2 L, monitor and wean as tolerated.? Maintain oxygen saturation greater than 90%. -initiating DuoNebs she dual and p.r.n..? Continue systemic steroids,T amiflu,added iv antibiotics. possible alcohol withdrawal: still anxious ,elevated blood pressure: ciwa , thiamine, folic acid, phenobarb, added labetalol Monitor closely. DVT prophylaxis: Lovenox 40 mg daily Full code Diet: Regular diet ongoing inpatient need:? Acute exacerbation of asthma in the setting of influenza A ,pneumonia-need? oxygen and scheduled DuoNebs,iv steriods ,alochol withdrwal -on phenobarbital protocol,ciwa monitering.? Quality Stroke Does the patient have a stroke diagnosis?: No VTE Prior VTE?: No VTE Risk Level:: Medical - low VTE Device Contraindication: Treatment Not Indicated VTE Drug Contraindication: N/A - Med Ordered
[2022-02-12] MEDS: Mag&Al/Sim/Diphenhyd/Lidocaine 10 ML ORAL.SUSP PO (15:59)
[2022-02-12] MEDS: Melatonin 3 MG TABLET 6 MG PO (20:04)
[2022-02-12] MEDS: PHENobarbitaL 15 MG TABLET PO (20:05)
[2022-02-12] MEDS: Enoxaparin Sodium 40 MG/0.4 ML SYRINGE SUBCUT (20:57)
[2022-02-13] MEDS: Acetaminophen 325 MG TABLET 650 MG PO ×3 (00:28→12:11)
[2022-02-13 03:31] VITALS: BP 129/69; RESP 18; TEMP 36.4; O2SAT 96
[2022-02-13] MEDS: Omeprazole 40 MG CAPSULE.DR PO (05:24)
[2022-02-13] MEDS: traMADoL HCL 50 MG TABLET 25 MG PO (05:24)
[2022-02-13] MEDS: methylPREDNISolone Sod Succ 40 MG/ML VIAL IVPUSH (05:24)
[2022-02-13] MEDS: guaiFENesin 100 MG/5 ML LIQUID 10 ML PO ×2 (05:31→11:35)
[2022-02-13] MEDS: Benzonatate 100 MG CAPSULE 200 MG PO (06:29)
[2022-02-13] MEDS: Albuterol/Iprat 2.5/0.5MG 3 ML AMPUL.NEB INHALE ×2 (07:53→11:49)
[2022-02-13 07:55] VITALS: PULSE 98; RESP 20; O2SAT 88
[2022-02-13 08:00] VITALS: BP 125/83; PULSE 99; RESP 18; TEMP 35.9; O2SAT 92
[2022-02-13] MEDS: Thiamine HCL 100 MG TABLET PO (08:15)
[2022-02-13] MEDS: Montelukast Sodium 10 MG TABLET PO (08:15)
[2022-02-13] MEDS: Loratadine 10 MG TABLET PO (08:15)
[2022-02-13] MEDS: Oseltamivir Phosphate 75 MG CAPSULE PO (08:15)
[2022-02-13] MEDS: Folic Acid 1 MG TABLET PO (08:15)
[2022-02-13] MEDS: PHENobarbitaL 15 MG TABLET PO (08:15)
[2022-02-13] MEDS: 0.9 % Sodium Chloride Flush 3 ML SYRINGE IVFLUSH (08:17)
[2022-02-13] MEDS: Labetalol HCL 100 MG TABLET PO (08:17)
[2022-02-13] MEDS: cefTRIAXone sodium 1 GM in 0.9 % Sodium Chloride 50 ML IV (11:35)
[2022-02-13 11:49] VITALS: PULSE 94; RESP 18; O2SAT 98
[2022-02-13 12:00] VITALS: BP 127/65; PULSE 90; RESP 20; O2SAT 98
--- NOTE | 2022-02-13 12:03 | P.DS_ITS ---
DS: Providers Provider Date of Service: 02/13/22 Date of admission: 02/09/22 20:19 Date of discharge: 02/13/22 Primary care physician: Geovany Neri MD Admitting clinician: Charlie Reilly Attending physician on admission: Charlie Reilly Consults: 02/10/22 01:51 Addiction Medicine Routine Consulting Provider: Addiction Covering Reason for consultation: Alcohol use disorder Consult to Care Team Routine Comment: Reason for consultation: Alcohol use disorder Attending physician on discharge: Guillermo Zelaya Discharging clinician: Inocencia Katz DS: Diagnosis Discharge Diagnosis (1) Cough: Status: Acute (2) Alcohol withdrawal: Status: Acute (3) Hypoxia: Status: Acute (4) Influenza: Status: Acute (5) Pneumonia: Status: Acute DS: Summary Hospital Course Hospital Course: HPI on admission by Dr. Reilly 02/09/2022 This is a 41-year-old female with pertinent history of asthma who presents to the ER for evaluation of dyspnea.? Patient initially presented on 02/08 with dyspnea and wheezing.? She was diagnosed with flu but left AMA after breathing treatments from the ER.? Patient again presented today with worsening dyspnea and persistent wheezing.? Shortness of breath is worse with exertion.? No leg swelling.? Patient states it started about 3-4 days ago.? Initially had upper re spiratory symptoms and dry cough.? Patient states she is compliant with her home inhaler for asthma.? Denies fever, chills, chest discomfort, shortness of breath, abdominal pain, chest pain, changes in urinary or bowel habits. In the emergency department, patient was found to be hypoxemic requiring 2 L supplemental oxygen. Hospital course Patient initally treated with IV solumedrol, duonebs, and supplemental O2 for management of acute asthma exacerbation secondary to influenza A. Also completed 5 day course tamiflu during admission (had taken 2 doses outpt prior to admission). Continued to experience increasingly productive cough and shortness of breath with minimal talking so she was treated empirically for suspected superimposed pneumonia with 2 doses ceftriaxone and azithromycin. She was also started on chest physiotherapy. Symptoms have greatly improved and has been successfully titrated off oxygen, now with oximetry 95% on RA without respiratory distress. She completed 4 days IV solumedrol and will transition to 1 days PO prednisone 40mg and will completed additional 5 days augmentin 500mg TID. She was monitored. Observed on CIWA scale and treated with phenobarbitol per protocol for alcohol withdrawal symptoms, initially score 5 with moderate tremors and nausea. No withdrawal seizure noted. Abstinence encouraged. Time spent discussing smoking cessation with patient: more than 10 minutes Time Spent with Patient Time attestation: Total time spent providing and/or coordinating discharge services: Discharge coordination time: Greater than 30 minutes Quality: Safe Use of Opioids Does Pt have an Active Cancer Diagnosis on the Problem List?: No Quality: Stroke Does the patient have a stroke diagnosis?: No Physical Exam Vital Signs: Vital Signs: Last Vital Signs Temp 96.7 F L 02/13/22 08:00 Pulse 90 02/13/22 12:00 Resp 20 02/13/22 12:00 BP 127/65 02/13/22 12:00 Pulse Ox 98 02/13/22 12:00 O2 Del Method 02/13/22 12:00 O2 Flow Rate 4 02/13/22 08:00 BMI result Body Mass Index 34.0 Constitutional - Awake and Alert, No apparent distress Eyes - PERRLA, EOMI Cardiovascular - S1S2, RRR, No edema Respiratory - Normal lung expansion, Normal respiratory effort, No respiratory distress, CTA bilaterally Gastrointestinal - NT / ND; +BS; No rebound or guarding Extremities - no calf tenderness bilaterally, no swelling Skin - Warm/Dry Neurological - Alert & oriented x3 Psychological - Appropriate affect Discharge Plan Discharge Anticipated Discharge Date/Time: 02/13/22 11:52 Patient Disposition: Home, Self-Care Discharge Diagnosis: acute asthma exacerbation with hypoxia, influenza A, acute alcohol withdrawal Referrals: Geovany Landaverde MD [Primary Care Provider] - 1 Week Discharge Medications: New acetaminophen 325 mg Tablet 650 mg PO Q6H PRN (Reason: Pain, Mild (Pain Scale 1-3)) Qty: 30 0RF amoxicillin-pot clavulanate [Augmentin] 500-125 mg tablet 1 tab PO Q8H Qty: 15 0RF prednisone 20 mg tablet 40 mg PO DAILY 1 Days Qty: 2 0RF Continued ipratropium-albuterol 0.5 mg-3 mg(2.5 mg base)/3 mL Solution For Nebulization 3 ml inhalation Q4H PRN (Reason: Shortness Of Breath/Wheezing) Qty: 270 0RF albuterol sulfate [ProAir HFA] 90 mcg/actuation HFA aerosol inhaler 2 puff inhalation QID PRN (Reason: asthma) Qty: 8.5 0RF fluticasone propion-salmeterol [Advair Diskus] 250-50 mcg/dose blister with device 1 inh inhalation BID Qty: 1 0RF Changed montelukast 10 mg tablet 10 mg PO DAILY Qty: 30 0RF Discontinued prednisone 50 mg tablet 50 mg PO DAILY 4 Days Qty: 4 0RF oseltamivir [Tamiflu] 75 mg capsule 75 mg PO Q12H 5 Days Qty: 10 0RF Discharge Orders: Discharge Order (Routine); Ordered 02/13/22 Ordered By: Inocencia Katz Diet: Regular diet Activity on Discharge: As tolerated Stand Alone Forms: Patient Portal Discharge page Care Plan Goals: Prevent recurrence of asthma exacerbation Continue treatment of community acquired pnuemonia Avoid alcohol consumption Health Concerns: Asthma exacerbation with hypoxia Pneumonia Alcohol withdrawal Plan of Treatment: Infleunza A -You completed course of tamiflu. You do not need to continue this at home -Symptoms should fully resolve in 7-14 days from symptom onset Suspected pneunonia -You were treated with antibiotics for what was thought to be a superimposed pneumonia causing your ongoing symptoms. You were given 2 days of antibiotics. I am prescibing you augmentin 500mg to be taken every 8 hours with food (eat yogurt as well for probiotics to prevent diarrhea) for 5 days starting tomorrow morning. You must take the entire course and follow up with your PCP within 1 week. You were initially requiring oxygen as well but were weaned off of this. Asthma exacerbation -Your asthma worsened in response to the influenza virus. You were treated with IV steroids and we will transition you to a final day of oral prednisone you will take tomorrow morning. I have refilled your inhalers and nebulizer as discu ssed. Follow up with your PCP and return to the ER if breathing worsens. Acute alcohol withdrawal -You were showing evidence of alcohol withdrawal during your admission. This can be very serious and even fatal. You received a medication called phenobarbital to treat your symptoms inter no longer showing any signs of withdrawal. I recommend abstinence from alcohol. Assessment: As above
[2022-02-13] MEDS: Azithromycin 500 MG in 0.9 % Sodium Chloride 250 ML 125 MG IV (12:10)
--- NOTE | 2022-02-13 12:46 | MHC.CM.PN ---
PT MEDICALLY CLEARED TO D/C HOME SELF-CARE, PT HAS DECLINED TO SPEAK W/RECOVERY TEAM AND [place] [facility] [place] [facility] [place].
== END 2022-02-13 13:49 | disposition home or self-care (01) | DRG 141 ==
LOC: HO.ED 20:20 → HO.EDOVER 20:34 → HO.S3 02-10 19:28
PROVIDERS: Admitting Provider Student in an Organized Health Care Education/Training Program; Emergency Provider Emergency Medicine Emergency Medical Services; PCP Internal Medicine; Visit Provider Physician Assistant
DX: J45.21 Mild intermittent asthma with (acute) exacerbation (principal); J96.01 Acute respiratory failure with hypoxia; J10.00 Influenza due to other identified influenza virus with unspecified type of pneumonia; J44.1 Chronic obstructive pulmonary disease with (acute) exacerbation; J44.0 Chronic obstructive pulmonary disease with (acute) lower respiratory infection; E78.1 Pure hyperglyceridemia; Y90.6 Blood alcohol level of 120-199 mg/100 ml; F10.939 Alcohol use, unspecified with withdrawal, unspecified; Z20.822 Contact with and (suspected) exposure to COVID-19; Z79.51 Long term (current) use of inhaled steroids; Z88.5 Allergy status to narcotic agent; Z88.6 Allergy status to analgesic agent; Z79.899 Other long term (current) drug therapy
CPT/HCPCS: 36415; 71045; 80048; 82077; 84702; 85025; 87635; 93005; 94640; 94664; 99285; J0456; J0696; J1650; J1885; J2405; J2920; J2930; J3475